=== PATIENT | male | born 1965 | race African-American/Black ===

== ENCOUNTER 2025-03-03 21:17 | Inpatient (IN) | payer MEDICAID ==
[~2025-03-03] VITALS: Ht 198.1 cm; Wt 104.0 kg
[~2025-03-03 21:17] MED LIST: APIX5TAB PO; CARV6.2551 PO; EMPA1TAB PO; FAMO20TA10 PO; IRBE150T57 PO; NIFE90TA75 PO; SPIR25TA8 PO; TORS20TA19 PO
--- NOTE | 2025-03-03 21:47 | ED.PDOC ---
Musculoskeletal HPI Comments 59 y.o male with PMHx of DM and HTN, presents to the ED for a chief complaint of bilateral leg swelling that has been ongoing. Patient reports being seen recently at a hospital in [place] in which he had a water pill switch and has been taking since. Patient is a poor historian, is unsure when he went to [place] or what water pill he is taking at this time, but that he is compliant with taking all his medication., Time Seen by MD: 21:34 Reviewed Notes: Nurses Notes, Medications, Allergies Allergies: Coded Allergies: NO KNOWN ALLERGIES (Unverified , 12/31/24) Information Source: Patient Mode of Arrival: Wheelchair Location: Bilateral Extremity Location: Leg Timing: Came on: Gradually Severity: Moderate Able to Move Extremity: Yes Bear Weight: Fully Pain: Moderate Mechanism: None Circumstances: Preceding Wound Onset of Symptoms: Spontaneous Symptoms: Swelling Associated signs and symptoms: Swelling Past Medical History PAST MEDICAL HISTORY: DM, HTN Surgical History: Denies all surgeries Family History Family History: Reviewed,noncontributory to illness, No family hx of Cancer, No family hx of DM, No family hx of Heart ameena, No family hx of HTN, No family hx ofKidney ameena, No family hx of Liver ameena, No family hx of Lung ameena, No family hx of Stroke Social History Smoker: Cigarettes Alcohol: Occasionally Drugs: Denies Drug Use Lives In: Home Constitutional: denies: chills, diaphoresis, fatigue, fever, malaise, sweats, weakness, others EENTM: denies: blurred vision, double vision, ear bleeding, ear discharge, ear drainage, ear pain, ear ringing, eye pain, eye redness, hearing loss, mouth pain, mouth swelling, nasal discharge, nose bleeding, nose congestion, nose pain, photophobia, tearing, throat pain, throat swelling, voice changes, others Respiratory: denies: cough, hemoptysis, orthopnea, SOB at rest, shortness of breath, SOB with excertion, stridor, wheezing, others Cardiovascular: denies: chest pain, dizzy spells, diaphoresis, Dyspnea on exertion, edema, irregular heart beat, left arm pain, lightheadedness, palpitations, PND, syncope, others Gastrointestinal: denies: abdomen distended, abdominal pain, blood streaked bowels, constipated, diarrhea, dysphagia, difficulty swallowing, hematemesis, melena, nausea, poor appetite, poor fluid intake, rectal bleeding, rectal pain, vomiting, others Genitourinary: denies: burning, dysuria, flank pain, frequency, hematuria, incontinence, penile discharge, penile sore, pain, testicle pain, testicle swelling, urgency, others Neurological: denies: dizziness, fainting, headache, left sided numbness, left sided weakness, numbness, paresthesia, pre-existing deficit, right sided numbness, right sided weakness, seizure, speech problems, tingling, tremors, weakness, others Musculoskeletal: reports: others (Lower extremity swelling ); denies: back pain, gout, joint pain, joint swelling, muscle pain, muscle stiffness, neck pain Integumetry: denies: bruises, change in color, change in hair/nails, dryness, laceration, lesions, lumps, rash, wounds, others Allergic/Immunocompromised: denies: Difficulty Healing, Frequent Infections, Hives, Itching, others Hematologic/Lymphatic: denies: anemia, blood clots, easy bleeding, easy bruising, swollen glands, others Endocrine: denies: excessive hunger, excessive sweating, excessive thirst, excessive urination, flushing, intolerance to cold, intolerance to heat, unexplained weight gain, unexplained weight loss, others Psychiatric: denies: anxiety, bipolar disorder, depression, hopeless, panic disorder, schizophrenia, sleepless, suicidal, others All Other Systems: Reviewed and Negative Physical Exam General Appearance: No Apparent Distress, Normal HEENT: Normal ENT Inspection, Pharynx Normal, TMs Normal Neck: Full Range of Motion, Non-Tender, Normal, Normal Inspection Respiratory: Chest Non-Tender, Lungs Clear, No Accessory Muscle Use, No Respiratory Distress, Normal Breath Sounds Cardiovascular: No Edema, No JVD, No Murmur, No Gallop, Normal Peripheral Pulses, Regular Rate/Rhythm Breast Exam: Deferred Gastrointestinal: No Organomegaly, Non Tender, No Pulsatile Mass, Normal Bowel Sounds, Soft Genitalia: Deferred Pelvic: Deferred Rectal: Deferred Extremities: Pedal edema, Swelling (Bilateral lower extremity ) Musculoskeletal : Apperance: Normal Neurologic: Alert, communications editor II-XII nml as Tested, No Motor Deficits, Normal Affect, Normal Mood, No Sensory Deficits Cerebellar Function: Normal Reflexes: Normal Skin: Dry, Normal Color, Warm Lymphatic: No Adenopathy Was a procedure done? Was a procedure done?: No Differential Diagnosis EXT Differential Diagnosis: Cellulitis, Deep Vein Thrombosis, Gout X-Ray, Labs, Meds, VS Vital Signs Date Time Temp Pulse Resp B/P (MAP) Pulse Ox O2 Delivery O2 Flow Rate FiO2 03/03/25 22:17 98.0 110 18 125/80 (95) 100 98.0 Lab Test 03/03/25 22:58 03/03/25 21:47 Range/Units Troponin I High Sensitivity Pending 54 </=54 ng/L White Blood Count 6.3 4.4-10.8 10^3/uL Red Blood Count 4.83 4.5-5.90 10^6/uL Hemoglobin 12.8 L 13.5-17.5 g/dL Hematocrit 40.3 L 41.0-53.0 % Mean Corpuscular Volume 83.4 80.0-100.0 fL Mean Corpuscular Hemoglobin 26.5 L 28.0-32.0 pg Mean Corpuscular Hemoglobin Concent 31.7 L 32.0-36.0 g/dL Red Cell Distribution Width 17.7 H 11.8-14.3 % Platelet Count 187 140-450 10^3/uL Mean Platelet Volume 8.7 6.9-10.8 fL Neutrophils (%) (Auto) 67.9 37.0-80.0 % Lymphocytes (%) (Auto) 20.0 10.0-50.0 % Monocytes (%) (Auto) 10.7 0.0-12.0 % Eosinophils (%) (Auto) 0.9 0.0-7.0 % Basophils (%) (Auto) 0.5 0.0-2.0 % Neutrophils # (Auto) 4.3 1.6-8.6 10 ^3/uL Lymphocytes # (Auto) 1.3 0.4-5.4 10 ^3/uL Monocytes # (Auto) 0.7 0-1.3 10 ^3/uL Eosinophils # (Auto) 0.1 0-0.8 10 ^3/uL Basophils # (Auto) 0 0-0.2 10 ^3/uL Nucleated Red Blood Cells 0.4 % Sodium Level 147 H 136-145 mmol/L Potassium Level 4.7 3.5-5.1 mmol/L Chloride Level 111 H 98-107 mmol/L Carbon Dioxide Level 26 20-31 mmol/L Anion Gap 10 5-15 Blood Urea Nitrogen 30 H 9-23 mg/dL Creatinine 1.86 H 0.700-1.30 mg/dL Glomerular Filtration Rate Calc 41 >90 mL/min BUN/Creatinine Ratio 16.1 10.0-20.0 Serum Glucose 164 H 74-106 mg/dL Calcium Level 9.2 8.7-10.4 mg/dL B-Type Natriuretic Peptide Pending Time of 1ST Reevaluation: 21:43 Reevaluation 1ST: Unchanged Patient Education/Counseling: Diagnosis, Treatment, Prognosis Family Education/Counseling: No Family Present Departure 1 Departure Time of Disposition: 23:33 (Patient likely with worsening chf exacerbation. x- ray is also concerning for possible pneumonia. will treat with antibiotics. Since patient appears clinically overloaded will not give fluids. ) Impression: Primary Impression: Acute on chronic diastolic heart failure Additional Impressions: Shortness of breath RLL pneumonia Qualified Codes: J18.9 - Pneumonia, unspecified organism Disposition: ADMITTED INPATIENT Admit to: Med Surg Condition: Serious Critical Care Note Critical Care Time?: No Stability Stability form required: No I personally scribed for ALEXANDER BHANDARI MD ([email or web address]) on 03/03/25 at 21:47. Electronically submitted by Tali Amezcua ([facility]). ALEXANDER BHANDARI MD Mar 03, 2025 21:47
[2025-03-03 22:23] LABS: Hemoglobin 12.8 g/dL (13.5-17.5); Mean Corpuscular Volume 83.4 fL (80.0-100.0)
[2025-03-03 22:26] LABS: Hematocrit 40.3 % (41.0-53.0); Mean Corpuscular Hemoglobin 26.5 pg (28.0-32.0); Nucleated Red Blood Cells % 0.4 %
[2025-03-03 22:36] LABS: Potassium 4.7 mmol/L (3.5-5.1)
[2025-03-03 22:37] LABS: Chloride 111 mmol/L (98-107); Sodium 147 mmol/L (136-145)
[2025-03-03 22:38] LABS: Calcium 9.2 mg/dL (8.7-10.4)
[2025-03-03 22:42] LABS: BUN/Creatinine Ratio 16.1 (10.0-20.0)
[2025-03-03 22:46] LABS: Blood Urea Nitrogen 30 mg/dL (9-23); Glucose 164 mg/dL (74-106)
[2025-03-03 22:49] LABS: Anion Gap 10 (5-15); Carbon Dioxide 26 mmol/L (20-31)
--- NOTE | 2025-03-03 23:15 | DVH ---
CHEST RADIOGRAPH Indication: chest pain Technique: Single frontal view of the chest was obtained COMPARISON: XY CHEST PORTABLE on DOS: 12/31/24 FINDINGS: Lines and Tubes: None Lungs: Multifocal bilateral pulmonary airspace disease predominantly within the middle and lower lung zones, [id number]. Consolidative features within the right middle and lower lung zone. Pleura: No effusion. No pneumothorax. Cardiomediastinal contours: Unremarkable Bones: Unremarkable IMPRESSION: 1. Multifocal bilateral pulmonary airspace disease with consolidative features within the right middl e and lower lung zone.
[2025-03-04] MEDS ORDERED: MORPHINE SULFATE INJ 2 MG/ml SYRG IV PRN
[2025-03-04] MEDS ORDERED: NITROGLYCERIN 0.4 MG SL TAB SL PRN
--- NOTE | 2025-03-04 00:55 | DVHHP2 ---
History of Present Illness Reason for Visit: Shortness of breaths History of Present Illness 59-year-old male presents for evaluation of shortness for breath. Patient reports worsening shortness for breath with associated lower extremity swelling. He also reports substernal chest tightness. No fever or chills. No other acut e complaints. Past Medical History Congestive heart failure, hypertension, diabetes mellitus Past Surgical History Denies Family History Noncontributory Smoke: No ALCOHOL: none Drugs: None Lives: with Family Review of Systems Review of Systems Review of systems are currently negative otherwise addressed in HPI. Allergies: Coded Allergies: NO KNOWN ALLERGIES (Unverified , 12/31/24) Medications Current Medications Medications Dose Ordered Sig/Aayush Route Start Time Stop Time Status Last Admin Dose Admin Nitroglycerin 0.4 mg Q5MINP PRN SL 03/04/25 00:00 Morphine Sulfate 2 mg Q30M PRN IV 03/04/25 00:00 Exam Vital Signs Vital Signs Date Time Temp Pulse Resp B/P (MAP) Pulse Ox O2 Delivery O2 Flow Rate FiO2 03/03/25 22:17 98.0 110 18 125/80 (95) 100 98.0 Exam Gen: 59-year-old male in mild distress Skin: Warm, dry, normal color and texture, no rash. HEENT: Normocephalic atraumatic, mucous membranes moist and pink. Neck: Cervical and supraclavicular nodes normal without enlargement, trachea is midline, thyroid gland is normal without masses. Pulmonary: Clear to auscultation and percussion bilaterally. Cardiac: Regular rate and rhythm. No murmur Abdomen: Soft, nontender, nondistended, bowel sounds present all 4 quadrants, no guarding, no rigidity, no organomegaly. Extremities: No cyanosis, clubbing, plus two bilateral pedal edema Neuro: Cranial nerves II through XII grossly intact, normal affect and speech, no focal motor deficits. Labs/Xrays ORDERING PHYSICIAN: ALEXANDER BHANDARI MD PROCEDURE(s): CXRP - CHEST PORTABLE REASON: chest pain ORDER NUMBER(s): [id number], ACCESSION NUMBER(s): [id number] CHEST RADIOGRAPH Indication: chest pain Technique: Single frontal view of the chest was obtained COMPARISON: XY CHEST PORTABLE on DOS: 12/31/24 FINDINGS: Lines and Tubes: None Lungs: Multifocal bilateral pulmonary airspace disease predominantly within the middle and lower lung zones, [id number]-left. Consolidative features within the right middle and lower lung zone. Pleura: No effusion. No pneumothorax. Cardiomediastinal contours: Unremarkable Bones: Unremarkable IMPRESSION: 1. Multifocal bilateral pulmonary airspace disease with consolidative features within the right middle and lower lung zone. Labs Test 03/03/25 22:58 03/03/25 21:47 Range/Units Troponin I High Sensitivity 59 *H </=54 ng/L White Blood Count 6.3 4.4-10.8 10^3/uL Red Blood Count 4.83 4.5-5.90 10^6/uL Hemoglobin 12.8 L 13.5-17.5 g/dL Hematocrit 40.3 L 41.0-53.0 % Mean Corpuscular Volume 83.4 80.0-100.0 fL Mean Corpuscular Hemoglobin 26.5 L 28.0-32.0 pg Mean Corpuscular Hemoglobin Concent 31.7 L 32.0-36.0 g/dL Red Cell Distribution Width 17.7 H 11.8-14.3 % Platelet Count 187 140-450 10^3/uL Mean Platelet Volume 8.7 6.9-10.8 fL Neutrophils (%) (Auto) 67.9 37.0-80.0 % Lymphocytes (%) (Auto) 20.0 10.0-50.0 % Monocytes (%) (Auto) 10.7 0.0-12.0 % Eosinophils (%) (Auto) 0.9 0.0-7.0 % Basophils (%) (Auto) 0.5 0.0-2.0 % Neutrophils # (Auto) 4.3 1.6-8.6 10 ^3/uL Lymphocytes # (Auto) 1.3 0.4-5.4 10 ^3/uL Monocytes # (Auto) 0.7 0-1.3 10 ^3/uL Eosinophils # (Auto) 0.1 0-0.8 10 ^3/uL Basophils # (Auto) 0 0-0.2 10 ^3/uL Nucleated Red Blood Cells 0.4 % Sodium Level 147 H 136-145 mmol/L Potassium Level 4.7 3.5-5.1 mmol/L Chloride Level 111 H 98-107 mmol/L Carbon Dioxide Level 26 20-31 mmol/L Anion Gap 10 5-15 Blood Urea Nitrogen 30 H 9-23 mg/dL Creatinine 1.86 H 0.700-1.30 mg/dL Glomerular Filtration Rate Calc 41 >90 mL/min BUN/Creatinine Ratio 16.1 10.0-20.0 Serum Glucose 164 H 74-106 mg/dL Calcium Level 9.2 8.7-10.4 mg/dL B-Type Natriuretic Peptide > 5000.00 0-100 pg/mL Assessment/Plan Assessment/Plan Assessment Acute on chronic respiratory failure CHF exacerbation Community-acquired pneumonia Troponin elevation Acute kidney injury Plan Admit the patient to telemetry to the hospitalist Cardiology consult Resume home medications IV Lasix Azithromycin/Rocephin Continue treatment per orders. Plan discussed with: Patient My Orders Orders - DONAVAN RODRÍGUEZ Procedure Category Date Status Time Admit ADMIT 03/03/25 Transmitted 23:55 Nitroglycerin PHA 03/04/25 In Process Sublingual (Ntrostat 00:00 Morphine Sulfate PHA 03/04/25 In Process Injection 00:00 Stat Ekg For Chest SHANNAN 03/03/25 In Process Pain 23:55 Notify Md Of Changes SHANNAN 03/03/25 In Process From Base 23:55 Magneto Specialist For SHANNAN 03/03/25 In Process 24 Hours 23:55 Emergency Dysrhythmia SHANNAN 03/03/25 In Process Protocol 23:55 Rhythm Strips Once SHANNAN 03/03/25 In Process Every Shift 23:55 Oxygen By Nasal RT 03/03/25 Transmitted Cannula 23:55 Date of Service: Mar 03, 2025 Billing Provider: DONAVAN RODRÍGUEZ Common Visit Codes: [id number] INP/OBS CARE (HIGH) DONAVAN RODRÍGUEZ Mar 04, 2025 00:55
[2025-03-04] MEDS ORDERED: ACETAMINOPHEN 325 MG TAB PO PRN (01:00)
[2025-03-04] MEDS ORDERED: HYDROcodone-ACET 5/325MG TAB PO PRN (01:00)
[2025-03-04] MEDS ORDERED: ONDANSETRON HCL 4 MG/2 ML VIAL IV PRN (01:00)
[2025-03-04 02:36] LABS: Urine Protein, UAD 1+ (Negative)
[2025-03-04 03:52] VITALS: O2SAT 94
[2025-03-04] MEDS: AZITHROMYCIN 250 MG TAB PO ONE (04:03)
[2025-03-04] MEDS: FUROSEMIDE 40 MG/4 ML VIAL IV ONE (04:03)
[2025-03-04] MEDS: CEFEPIME 2GM/50ML NS 50 ML IV ONE (04:04)
[2025-03-04] MEDS: FUROSEMIDE 20 MG/2 ML VIAL IV SCH (06:21)
[2025-03-04 08:00] VITALS: TEMP 97.4
[2025-03-04 08:15] VITALS: PULSE 104; RESP 22; O2SAT 97
[2025-03-04] MEDS: cefTRIAXone 1GM/50ML D5W 50 ML IV SCH (09:07)
[2025-03-04] MEDS ORDERED: IRBESARTAN 300 MG PO SCH (10:00)
[2025-03-04] MEDS ORDERED: APIXABAN 5 MG TAB PO SCH (10:00)
[2025-03-04] MEDS ORDERED: LOSARTAN POTASSIUM 50 MG TAB PO SCH (10:00)
[2025-03-04] MEDS ORDERED: hydroCHLOROthiazide 25 MG TAB PO SCH (10:00)
--- NOTE | 2025-03-04 10:06 | DVHINCON2 ---
Date Seen: Mar 04, 2025 Referring Physician KEKE Coreas Reason for Consultation CHF History of Present Illness This is a 59-year-old man who presented to the emergency room with a chief complaint of shortness of breath. The patient complains of progressive, intermittent shortness of breath associated with orthopnea. Denies chest pain, palpitations, diaphoresis, dizziness, syncopal events, PND or LOPEZ. He underwent a 12 lead electrocardiogram revealing a sinus rhythm with an incomplete RBBB, nonspecific ST segment changes to lateral leads, LVH and LAE. Troponin levels are flat in the 50s ng/L. Of note, the patient had an admission to this facility on 12/31/2024 but left AMA. 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 At that time, he underwent a cardiac catheterization without catheter based intervention. He was discharged on full GDMT for HFrEF in addition to Eliquis therapy for an unknown diagnosis. He lives in the [facility] and has established care with a primary quality assurance associate in [place] with upcoming appointment on 03/14/2025. Significant medical history includes nonischemic/biventricular cardiomyopathy, hypertension, prediabetes, benign prostatic hyperplasia, bilateral adrenal nodules, and morbid obesity. Past Medical History Past medical history reviewed. No other significant than mentioned above. Past Surgical History Past medical history reviewed. No other significant than mentioned above. Family History Family history reviewed. Significant for father with CABG. Social History Denies the use of illicit drugs and alcohol. Admits to tobacco use, one pack of cigarettes every five days. 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 Allergies: Coded Allergies: NO KNOWN ALLERGIES (Unverified , 12/31/24) Home Meds Home medications reviewed. Current Medications Current Medications Medications (Trade) Dose Ordered Sig/Aayush Route PRN Reason Start Time Stop Time Status Last Admin Nitroglycerin (Ntrostat Sublingual) 0.4 mg Q5MINP PRN SL FOR CHEST PAIN 03/04/25 00:00 Morphine Sulfate 2 mg Q30M PRN IV FOR CHEST PAIN 03/04/25 00:00 Furosemide (Lasix Injection) 20 mg BIDD IV 03/04/25 06:00 03/04/25 06:21 Apixaban (Eliquis) 5 mg BID PO 03/04/25 10:00 Empaglifozin (Jardiance) 10 mg DAILY PO 03/04/25 10:00 Carvedilol (Coreg Tablet) 6.25 mg Q12HR PO 03/04/25 10:00 Hydrochlorothiazide (hydroCHLOROthiazide TABLET) 12.5 mg DAILY PO 03/04/25 10:00 Patient Own Medication 300 mg DAILY PO 03/04/25 10:00 UNV Aspirin 81 mg DAILY PO 03/04/25 10:00 Atorvastatin Calcium (Lipitor) 10 mg HS PO 03/04/25 22:00 Acetaminophen/ Hydrocodone Bitart ([place] 5/325MG Tab) 1 tab Q4HP PRN PO MODERATE PAIN (4-6 PAIN SCALE) 03/04/25 01:00 Ondansetron HCl (Zofran) 4 mg Q4HP PRN IV NAUSEA / VOMITING 03/04/25 01:00 Acetaminophen (Tylenol Tablet) 650 mg Q6HP PRN PO PAIN SCALE 1-3 OR TEMP>100.4 03/04/25 01:00 Azithromycin 250 ml @ 125 mls/hr DAILY IV 03/04/25 10:00 UNV Ceftriaxone Sodium 50 ml @ 100 mls/hr DAILY@09 IV 03/04/25 09:00 03/04/25 09:07 Losartan Potassium (Cozaar Tablet) 100 mg DAILY PO 03/04/25 10:00 Review of Systems Constitutional: No symptom reported Ears, Nose, & Throat: No symptom reported Eyes: No symptom reported Neurological: No symptoms reported Pulmonary/Respiratory: SOB, orthopnea Cardiovascular: No symptom reported Gastrointestinal: No symptom reported Genitourinary: No symptom reported Musculoskeletal: No symptom reported Skin: No symptom reported Psychiatric: No symptom reported Endocrine: No symptom reported Hemotologic/Lymphatic: No symptom reported Vital Signs Vital Signs Date Time Temp Pulse Resp B/P (MAP) Pulse Ox O2 Delivery O2 Flow Rate FiO2 03/04/25 08:50 96 03/04/25 08:15 22 97 Room Air* 0 21 03/04/25 08:00 97.4 122/94 (103) 97.4 Labs/Diagnostic Data Labs Test 03/04/25 08:20 03/03/25 22:58 03/03/25 21:47 03/03/25 21:42 Range/Units Lactic Acid Level 1.8 0.4-2.0 mmol/L Troponin I High Sensitivity 59 *H </=54 ng/L White Blood Count 6.3 4.4-10.8 10^3/uL Red Blood Count 4.83 4.5-5.90 10^6/uL Hemoglobin 12.8 L 13.5-17.5 g/dL Hematocrit 40.3 L 41.0-53.0 % Mean Corpuscular Volume 83.4 80.0-100.0 fL Mean Corpuscular Hemoglobin 26.5 L 28.0-32.0 pg Mean Corpuscular Hemoglobin Concent 31.7 L 32.0-36.0 g/dL Red Cell Distribution Width 17.7 H 11.8-14.3 % Platelet Count 187 140-450 10^3/uL Mean Platelet Volume 8.7 6.9-10.8 fL Neutrophils (%) (Auto) 67.9 37.0-80.0 % Lymphocytes (%) (Auto) 20.0 10.0-50.0 % Monocytes (%) (Auto) 10.7 0.0-12.0 % Eosinophils (%) (Auto) 0.9 0.0-7.0 % Basophils (%) (Auto) 0.5 0.0-2.0 % Neutrophils # (Auto) 4.3 1.6-8.6 10 ^3/uL Lymphocytes # (Auto) 1.3 0.4-5.4 10 ^3/uL Monocytes # (Auto) 0.7 0-1.3 10 ^3/uL Eosinophils # (Auto) 0.1 0-0.8 10 ^3/uL Basophils # (Auto) 0 0-0.2 10 ^3/uL Nucleated Red Blood Cells 0.4 % Sodium Level 147 H 136-145 mmol/L Potassium Level 4.7 3.5-5.1 mmol/L Chloride Level 111 H 98-107 mmol/L Carbon Dioxide Level 26 20-31 mmol/L Anion Gap 10 5-15 Blood Urea Nitrogen 30 H 9-23 mg/dL Creatinine 1.86 H 0.700-1.30 mg/dL Glomerular Filtration Rate Calc 41 >90 mL/min BUN/Creatinine Ratio 16.1 10.0-20.0 Serum Glucose 164 H 74-106 mg/dL Calcium Level 9.2 8.7-10.4 mg/dL B-Type Natriuretic Peptide > 5000.00 0-100 pg/mL Urine Color Yellow Yellow Urine Clarity Clear Clear Urine pH 6.5 5.0-9.0 Urine Specific [place] 1.018 1.001-1.035 Urine Protein 1+ H Negative Urine Ketones Negative Negative Urine Blood Negative Negative /uL Urine Nitrite Negative Negative Urine Bilirubin Negative Negative Urine Urobilinogen Normal Negative mg/dL Urine Leukocyte Esterase Negative Negative /uL Urine RBC 3 0 - 3 /hpf Urine Microscopic WBC 1 0-3 /HPF Urine Squamous Epithelial Cells None seen <5 /hpf Urine Bacteria None seen None Seen /hpf Urine Glucose 3+ H Normal mg/dL Assessment Acute on chronic decompensated HFrEF, NYHA Class IV Non-ischemic/biventricular cardiomyopathy NSTEMI Type II secondary to above Pulmonary hypertension, severe, likely Group II Aortic valve insufficiency, moderate to severe 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 Gibson): * Transthoracic echocardiogram from 01/02/2025 revealed LVEF 10-15%. RVSP 60 mmHg * Severe global hypokinesis. Right ventricular function is diminished at about 40%. Moderate to severe aortic insufficiency * GDMT for HFrEF as renal function permits * Currently on BB and SGLT2i. Mineralcorticoid and Entresto held 2/2 EDVIN * Preload and afterload reduction. Aggressive diuresis * Strict I&Os, daily weight, maintain fluid restrictions * Therapeutic Lovenox. Resume DOAC therapy with Eliquis when appropriate * Monitor ECG changes closely and notify Consider oncology consultation given suspected pulmonary/pancreatic malignancy. Thank you for allowing us to participate in this patient's care. Please call if you have any questions or concerns. This medical document was created using an electronic medical record system with voice recognition software and computerized dictation system. Although this document has been carefully reviewed, there might still be some phonetic and typographical errors. Occasional wrong-word or ``sound-alike substitutions may have occurred due to the inherent limitations of voice recognition software. These areas are purely typographical due to imperfections of the software programs and do not reflect any compromise in the patient's medical care. Please read the chart carefully and recognize, using context, where these substitutions have occurred. Plan discussed with: Patient, Other NYHA Physical activity limitations: Class4(Severe)discomfort (w any activit,symptoms at rest) Date of Service: Mar 04, 2025 Billing Provider: JODI NASH Cardiology Common Codes: [id number] INP/OBS CARE (High) JODI NASH Mar 04, 2025 10:05
[2025-03-04] MEDS: AZITHROMYCIN 500MG/ 250ML 250 ML IV SCH (10:58)
[2025-03-04 11:00] VITALS: BP 141/93; PULSE 96; RESP 18; O2SAT 94
[2025-03-04] MEDS: ENOXAPARIN SOD 100 MG/1 ML SYRINGE SC SCH (11:01)
[2025-03-04] MEDS: EMPAGLIFLOZIN 10 MG TAB PO SCH (11:01)
[2025-03-04] MEDS: CARVEDILOL 3.125 MG TAB PO SCH (11:04)
[2025-03-04] MEDS ORDERED: ALBUTEROL SULF 2.5 MG/0.5ML(0.5%) NEB SOLN NEB PRN (12:00)
[2025-03-04] MEDS ORDERED: IPRATROPIUM BROM 0.5 MG/2.5ML INH SOL NEB PRN (12:00)
[2025-03-04] MEDS ORDERED: DOXYCYCLINE 100MG/100ML 100 ML IV SCH (12:00)
--- NOTE | 2025-03-04 12:09 | DVHDS2 ---
Discharge Summary Date of Admission Mar 03, 2025 at 23:55 Date of Discharge: Mar 04, 2025 Admitting Diagnosis Acute on chronic respiratory failure CHF exacerbation Community-acquired pneumonia Troponin elevation Acute kidney injury Labs/Diagnostic Data: Laboratory Results Test 03/04/25 08:20 03/03/25 22:58 03/03/25 21:47 03/03/25 21:42 Lactic Acid Level 1.8 mmol/L (0.4-2.0) Troponin I High Sensitivity 59 ng/L (</=54) White Blood Count 6.3 10^3/uL (4.4-10.8) Red Blood Count 4.83 10^6/uL (4.5-5.90) Hemoglobin 12.8 g/dL (13.5-17.5) Hematocrit 40.3 % (41.0-53.0) Mean Corpuscular Volume 83.4 fL (80.0-100.0) Mean Corpuscular Hemoglobin 26.5 pg (28.0-32.0) Mean Corpuscular Hemoglobin Concent 31.7 g/dL (32.0-36.0) Red Cell Distribution Width 17.7 % (11.8-14.3) Platelet Count 187 10^3/uL (140-450) Mean Platelet Volume 8.7 fL (6.9-10.8) Neutrophils (%) (Auto) 67.9 % (37.0-80.0) Lymphocytes (%) (Auto) 20.0 % (10.0-50.0) Monocytes (%) (Auto) 10.7 % (0.0-12.0) Eosinophils (%) (Auto) 0.9 % (0.0-7.0) Basophils (%) (Auto) 0.5 % (0.0-2.0) Neutrophils # (Auto) 4.3 10 ^3/uL (1.6-8.6) Lymphocytes # (Auto) 1.3 10 ^3/uL (0.4-5.4) Monocytes # (Auto) 0.7 10 ^3/uL (0-1.3) Eosinophils # (Auto) 0.1 10 ^3/uL (0-0.8) Basophils # (Auto) 0 10 ^3/uL (0-0.2) Nucleated Red Blood Cells 0.4 % Sodium Level 147 mmol/L (136-145) Potassium Level 4.7 mmol/L (3.5-5.1) Chloride Level 111 mmol/L (98-107) Carbon Dioxide Level 26 mmol/L (20-31) Anion Gap 10 (5-15) Blood Urea Nitrogen 30 mg/dL (9-23) Creatinine 1.86 mg/dL (0.700-1.30) Glomerular Filtration Rate Calc 41 mL/min (>90) BUN/Creatinine Ratio 16.1 (10.0-20.0) Serum Glucose 164 mg/dL (74-106) Calcium Level 9.2 mg/dL (8.7-10.4) B-Type Natriuretic Peptide > 5000.00 pg/mL (0-100) Urine Color Yellow (Yellow) Urine Clarity Clear (Clear) Urine pH 6.5 (5.0-9.0) Urine Specific [place] 1.018 (1.001-1.035) Urine Protein 1+ (Negative) Urine Ketones Negative (Negative) Urine Blood Negative /uL (Negative) Urine Nitrite Negative (Negative) Urine Bilirubin Negative (Negative) Urine Urobilinogen Normal mg/dL (Negative) Urine Leukocyte Esterase Negative /uL (Negative) Urine RBC 3 /hpf (0 - 3) Urine Microscopic WBC 1 /HPF (0-3) Urine Squamous Epithelial Cells None seen /hpf (<5) Urine Bacteria None seen /hpf (None Seen) Urine Glucose 3+ mg/dL (Normal) Other Laboratory Tests 03/03/25 21:47 Brief Hx & Hospital Course: This is a 59 years old male with past medical history of congestive heart failure, COPD, came to emergency department because worsening shortness for breath. The patient also complained of bilateral lower extremity edema. Denied any fever, chills. The patient was admitted for congestive heart failure exacerbation and also was treated for COPD exacerbation with oxygen, DuoNeb, and antibiotics. Patient also was put on Lasix IV b.i.d.. Today I see the patient he still sitting on bed tried to catch the breath however he adamant that he will leave the hospital. He said he can not stay any day. I explained to him if he leave the hospital prematurely he might have to come back because of his respiratory failure and if he not treating the congestive heart failure and COPD appropriate he might suffer from mom multiple comorbid even . Patient however adamant that he will leave against medical advice. Physical exam prior to patient left against medical advice HEENT: Normocephalic atraumatic pupils equal react to light and accommodation. Extraocular muscles intact, conjunctiva pink, oropharynx moist, no thrush, no exudate. Lymphatic: No lymphadenopathy Cardiovascular exam: S1, S2 was heard. No murmurs, rubs, gallops Lung: Decreased breath sounds bilateral, wheezing over the lung field, positive rhonchi and rales. GI: Abdominal soft, nondistended, nontenderness, positive bowel sounds. Extremity: No crepitus, cyanosis, edema. Pedal pulses present bilateral. Full range of motion. Skin: Normal turgor, no rash. Psych: Alert, oriented x3. Neurology: No focal deficits, cranial nerve II to XII grossly intact. This medical document was created using an electronic medical record system with eyetok dictation system. Although this document has been carefully reviewed, there may still be some phonetic and typographical errors. These areas are purely typographical due to imperfections of the software programs, and do not reflect any compromise in the patient's medical care. Condition at Discharge: Guarded Final Diagnosis/Problems List Acute on chronic respiratory failure CHF exacerbation Community-acquired pneumonia Troponin elevation Acute kidney injury Discharge Disposition: AMA Discharge Instruct/Medications Scheduled Apixaban Base (Eliquis), 1 TAB PO BID, (Reported) Carvedilol (Coreg), 12.5 MG PO Q12HR Doxycycline Monohydrate (Doxycycline Monohydrate), 100 MG PO Q12HR Empagliflozin (Jardiance), 1 TAB PO DAILY, (Reported) Famotidine (Pepcid Tablet), 1 TAB PO DAILY, (Reported) Furosemide (Furosemide), 40 MG PO BID Irbesartan-Hydrochlorothiazide (Irbesartan/Hydrochlorothi 150-12.5 mg), 1 TAB PO DAILY, (Reported) Nifedipine (Nifedipine Er), 1 TAB PO DAILY, (Reported) Spironolactone (Spironolactone), 0.5 TAB PO DAILY, (Reported) Torsemide Injection (Torsemide), 0.5 TAB PO DAILY, (Reported) Discontinued Medications Carvedilol (Carvedilol), 1 TAB PO BID, (Reported) Discharge Statement: "Patient was advised to return to the ER or call 911 if any headaches, dizziness, shortness of breath, chest pain, abdominal pain, bleeding, fevers, or worsening of medical condition. Patient was counseled about treatment plan, medications, possible side effects, patientverbalized understanding. All questions were answered to the best of my ability. This discharge took greater then 30 minutes in planning, reviewing documentation, counseling the patient, and discussing with other team members." ASSESSMENT ASSESSMENT Assessment Date of Service: Mar 04, 2025 Billing Provider: LEONIDAS WHATLEY MD Common Visit Codes: 95914-KUQ/OBS DISCH DAY >30min LEONIDAS WHATLEY MD Mar 04, 2025 12:09
--- NOTE | 2025-03-04 12:46 | ECG ---
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
[2025-03-04] MEDS ORDERED: FUROSEMIDE 40 MG/4 ML VIAL IV SCH (18:00)
[2025-03-04] MEDS ORDERED: ATORVASTATIN 20 MG TAB PO SCH (22:00)
--- NOTE | 2025-03-04 23:07 | DVHINCON2 ---
Date Seen: Mar 04, 2025 Referring Physician KEKE Coreas Reason for Consultation CHF History of Present Illness This is a 59-year-old male with a PMH of nonischemic/biventricular cardiomyopathy, hypertension, prediabetes, benign prostatic hyperplasia, bilateral adrenal nodules, and morbid obesity who presented to the emergency room with complaint of shortness of breath. The patient complains of progressive, intermittent shortness of breath associated with orthopnea. Denies chest pain, palpitations, diaphoresis, dizziness, syncopal events, PND or LOPEZ. He underwent a 12 lead electrocardiogram revealing a sinus rhythm with an incomplete RBBB, nonspecific ST segment changes to lateral leads, LVH and LAE. Troponin levels are flat in the 50s ng/L. Of note, the patient had an admission to this facility on 12/31/2024 but left AMA. 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 At that time, he underwent a cardiac catheterization without catheter based intervention. He was discharged on full GDMT for HFrEF in addition to Eliquis therapy for an unknown diagnosis. He lives in the [facility] and has established care with a primary football pad repairer in [place] with upcoming appointment on 03/14/2025. Patient was admitted to the hospital. I am asked to consult on this patient. Past Medical History Past medical history reviewed. No other significant than mentioned above. Allergies: Coded Allergies: NO KNOWN ALLERGIES (Unverified , 12/31/24) Current Medications Current Medications Medications (Trade) Dose Ordered Sig/Aayush Route PRN Reason Start Time Stop Time Status Last Admin Nitroglycerin (Ntrostat Sublingual) 0.4 mg Q5MINP PRN SL FOR CHEST PAIN 03/04/25 00:00 03/04/25 12:15 DC Morphine Sulfate 2 mg Q30M PRN IV FOR CHEST PAIN 03/04/25 00:00 03/04/25 12:15 DC Furosemide (Lasix Injection) 20 mg BIDD IV 03/04/25 06:00 03/04/25 11:59 DC 03/04/25 06:21 Apixaban (Eliquis) 5 mg BID PO 03/04/25 10:00 03/04/25 09:46 DC Empaglifozin (Jardiance) 10 mg DAILY PO 03/04/25 10:00 03/04/25 12:15 DC 03/04/25 11:01 Carvedilol (Coreg Tablet) 6.25 mg Q12HR PO 03/04/25 10:00 03/04/25 12:15 DC 03/04/25 11:04 Hydrochlorothiazide (hydroCHLOROthiazide TABLET) 12.5 mg DAILY PO 03/04/25 10:00 03/04/25 09:46 DC Patient Own Medication 300 mg DAILY PO 03/04/25 10:00 UNV Aspirin 81 mg DAILY PO 03/04/25 10:00 03/04/25 12:15 DC 03/04/25 11:01 Atorvastatin Calcium (Lipitor) 10 mg HS PO 03/04/25 22:00 03/04/25 12:15 DC Acetaminophen/ Hydrocodone Bitart (Riley 5/325MG Tab) 1 tab Q4HP PRN PO MODERATE PAIN (4-6 PAIN SCALE) 03/04/25 01:00 03/04/25 12:15 DC Ondansetron HCl (Zofran) 4 mg Q4HP PRN IV NAUSEA / VOMITING 03/04/25 01:00 03/04/25 12:15 DC Acetaminophen (Tylenol Tablet) 650 mg Q6HP PRN PO PAIN SCALE 1-3 OR TEMP>100.4 03/04/25 01:00 03/04/25 12:15 DC Azithromycin 250 ml @ 125 mls/hr DAILY IV 03/04/25 10:00 03/04/25 11:18 DC 03/04/25 10:58 Ceftriaxone Sodium 50 ml @ 100 mls/hr DAILY@09 IV 03/04/25 09:00 03/04/25 12:15 DC 03/04/25 09:07 Losartan Potassium (Cozaar Tablet) 100 mg DAILY PO 03/04/25 10:00 03/04/25 09:46 DC Enoxaparin Sodium (Lovenox) 100 mg Q12HR SC 03/04/25 10:00 03/04/25 12:15 DC 03/04/25 11:01 Furosemide (Lasix Injection) 40 mg BIDD IV 03/04/25 18:00 03/04/25 12:15 DC Ipratropium [place] (Atrovent Medneb) 0.5 mg Q6HPRN PRN NEB SHORTNESS OF BREATH 03/04/25 12:00 03/04/25 12:15 DC Albuterol (Ventolin Medneb) 2.5 mg Q6HPRN PRN NEB SHORTNESS OF BREATH 03/04/25 12:00 03/04/25 12:15 DC Doxycycline Hyclate 100 ml @ 50 mls/hr Q12H IV 03/04/25 12:00 03/04/25 12:15 DC Review of Systems Constitutional: No symptom reported Ears, Nose, & Throat: No symptom reported Eyes: No symptom reported Neurological: No symptoms reported Pulmonary/Respiratory: SOB, orthopnea Cardiovascular: No symptom reported Gastrointestinal: No symptom reported Genitourinary: No symptom reported Musculoskeletal: No symptom reported Skin: No symptom reported Psychiatric: No symptom reported Endocrine: No symptom reported Hemotologic/Lymphatic: No symptom reported Vital Signs Vital Signs Date Time Temp Pulse Resp B/P (MAP) Pulse Ox O2 Delivery O2 Flow Rate FiO2 03/04/25 11:04 94 141/93 03/04/25 11:00 18 94 03/04/25 08:15 Room Air* 0 21 03/04/25 08:00 97.4 97.4 Physical Exam CARDIOVASCULAR GENERAL: Alert and oriented x 3. No acute distress. EYES: PERRL, EOMI. Anicteric. HENT: Moist mucous membranes. LUNGS: Clear to auscultation bilaterally. Regular rate and rhythm. ABDOMEN: Soft, non-tender and non-distended. EXTREMITIES: No edema. NEUROLOGIC: No focal neurological deficits. SKIN: Warm, dry. Labs/Diagnostic Data Labs Test 03/04/25 08:20 03/03/25 22:58 03/03/25 21:47 03/03/25 21:42 Range/Units Lactic Acid Level 1.8 0.4-2.0 mmol/L Troponin I High Sensitivity 59 *H </=54 ng/L White Blood Count 6.3 4.4-10.8 10^3/uL Red Blood Count 4.83 4.5-5.90 10^6/uL Hemoglobin 12.8 L 13.5-17.5 g/dL Hematocrit 40.3 L 41.0-53.0 % Mean Corpuscular Volume 83.4 80.0-100.0 fL Mean Corpuscular Hemoglobin 26.5 L 28.0-32.0 pg Mean Corpuscular Hemoglobin Concent 31.7 L 32.0-36.0 g/dL Red Cell Distribution Width 17.7 H 11.8-14.3 % Platelet Count 187 140-450 10^3/uL Mean Platelet Volume 8.7 6.9-10.8 fL Neutrophils (%) (Auto) 67.9 37.0-80.0 % Lymphocytes (%) (Auto) 20.0 10.0-50.0 % Monocytes (%) (Auto) 10.7 0.0-12.0 % Eosinophils (%) (Auto) 0.9 0.0-7.0 % Basophils (%) (Auto) 0.5 0.0-2.0 % Neutrophils # (Auto) 4.3 1.6-8.6 10 ^3/uL Lymphocytes # (Auto) 1.3 0.4-5.4 10 ^3/uL Monocytes # (Auto) 0.7 0-1.3 10 ^3/uL Eosinophils # (Auto) 0.1 0-0.8 10 ^3/uL Basophils # (Auto) 0 0-0.2 10 ^3/uL Nucleated Red Blood Cells 0.4 % Sodium Level 147 H 136-145 mmol/L Potassium Level 4.7 3.5-5.1 mmol/L Chloride Level 111 H 98-107 mmol/L Carbon Dioxide Level 26 20-31 mmol/L Anion Gap 10 5-15 Blood Urea Nitrogen 30 H 9-23 mg/dL Creatinine 1.86 H 0.700-1.30 mg/dL Glomerular Filtration Rate Calc 41 >90 mL/min BUN/Creatinine Ratio 16.1 10.0-20.0 Serum Glucose 164 H 74-106 mg/dL Calcium Level 9.2 8.7-10.4 mg/dL B-Type Natriuretic Peptide > 5000.00 0-100 pg/mL Urine Color Yellow Yellow Urine Clarity Clear Clear Urine pH 6.5 5.0-9.0 Urine Specific [place] 1.018 1.001-1.035 Urine Protein 1+ H Negative Urine Ketones Negative Negative Urine Blood Negative Negative /uL Urine Nitrite Negative Negative Urine Bilirubin Negative Negative Urine Urobilinogen Normal Negative mg/dL Urine Leukocyte Esterase Negative Negative /uL Urine RBC 3 0 - 3 /hpf Urine Microscopic WBC 1 0-3 /HPF Urine Squamous Epithelial Cells None seen <5 /hpf Urine Bacteria None seen None Seen /hpf Urine Glucose 3+ H Normal mg/dL Assessment Acute on chronic decompensated HFrEF, NYHA Class IV. Non-ischemic/biventricular cardiomyopathy. NSTEMI Type II secondary to above. Pulmonary hypertension, severe, likely Group II. Aortic valve insufficiency, moderate to severe. 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 On Eliquis therapy for unknown diagnoses. Hypertension. EDVIN on CKD. Prediabetes, newly diagnosed. Nicotine dependence. Morbid obesity. Plan/Recommendation I agree with your ongoing assessment and care of plan. Patient has been seen by Renee Goncalves NP on my behalf. We have discussed the plan with the patient. Transthoracic echocardiogram from 01/02/2025 revealed LVEF 10-15%. RVSP 60 mmHg. Severe global hypokinesis. Right ventricular function is diminished at about 40%. Moderate to severe aortic insufficiency. GDMT for HFrEF as renal function permits. Currently on BB and SGLT2i. Mineralcorticoid and Entresto held 2/2 EDVIN. Preload and afterload reduction. Aggressive diuresis. Strict I&Os, daily weight, maintain fluid restrictions. Therapeutic Lovenox. Resume DOAC therapy with Eliquis when appropriate. Monitor ECG changes closely and notify. Consider oncology consultation given suspected pulmonary/pancreatic malignancy. Additional plan as per the hospital course. Plan discussed with: Patient NYHA Physical activity limitations: Class4(Severe)discomfort Date of Service: Mar 04, 2025 Billing Provider: MAYANK CANCINO MD Cardiology Common Codes: [id number] INP/OBS CARE (High) Cardiology Consultation Codes: [id number] CONSULT <45MIN MAYANK CANCINO MD Mar 04, 2025 23:07
== END 2025-03-04 12:13 | disposition left against medical advice (07) | DRG 469 ==
LOC: ER 21:20 → OVERFLOW 23:55 → UNDOADMIN 03-04 00:08 → OVERFLOW 03-04 00:08
PROVIDERS: ADMIT Internal Medicine; ATTEND Internal Medicine
DX: N17.9 Acute kidney failure, unspecified (principal); J96.20 Acute and chronic respiratory failure, unspecified whether with hypoxia or hypercapnia; I21.A1 Myocardial infarction type 2; I50.23 Acute on chronic systolic (congestive) heart failure; J15.69 Pneumonia due to other Gram-negative bacteria; I27.20 Pulmonary hypertension, unspecified; I42.8 Other cardiomyopathies; I13.0 Hypertensive heart and chronic kidney disease with heart failure and stage 1 through stage 4 chronic kidney disease, or unspecified chronic kidney disease; J15.9 Unspecified bacterial pneumonia; J44.1 Chronic obstructive pulmonary disease with (acute) exacerbation; J44.0 Chronic obstructive pulmonary disease with (acute) lower respiratory infection; C34.91 Malignant neoplasm of unspecified part of right bronchus or lung; Z53.29 Procedure and treatment not carried out because of patient's decision for other reasons; F17.210 Nicotine dependence, cigarettes, uncomplicated; I35.1 Nonrheumatic aortic (valve) insufficiency; E66.01 Morbid (severe) obesity due to excess calories; E11.22 Type 2 diabetes mellitus with diabetic chronic kidney disease; N18.9 Chronic kidney disease, unspecified; C34.92 Malignant neoplasm of unspecified part of left bronchus or lung; I45.10 Unspecified right bundle-branch block; N40.0 Benign prostatic hyperplasia without lower urinary tract symptoms; Z79.01 Long term (current) use of anticoagulants; Z68.26 Body mass index [BMI] 26.0-26.9, adult
CPT/HCPCS: 36415; 71045; 80048; 81001; 83605; 83880; 84484; 85025; 93005; G0378; J0692

== ENCOUNTER 2025-03-04 17:48 | Inpatient (IN) | payer MEDICAID ==
[~2025-03-04] VITALS: Ht 198.1 cm; Wt 150.2 kg
[2025-03-04 18:15] VITALS: PULSE 109; RESP 16; O2SAT 94
--- NOTE | 2025-03-04 18:46 | ED.PDOC ---
History of Present Illness HPI Comments 59 y.o male, with PMHx of DM and HTN, presents for 1x week history of bilateral leg swelling and 2x day history of bilateral. Patient is returning to the ED after leaving AMA, earlier, this morning. Denies any chest pain, palpitations, fever, chills, or further associated symptoms. Chief Complaint: Shortness of Breath Time Seen by MD: 18:10 Reviewed Notes: Nurses Notes, Makeup Editor Notes, Medications, Allergies Allergies: Coded Allergies: NO KNOWN ALLERGIES (Unverified , 12/31/24) Home Meds Active Scripts Furosemide (Furosemide) 40 Mg Tab, 40 MG PO BID for 10 Days, #20 TAB Prov:JADE REYNOLDS RESIDENT 03/07/25 Doxycycline Monohydrate (Doxycycline Monohydrate) 100 Mg Tab, 100 MG PO Q12HR for 3 Days, #6 TAB Prov:JADE REYNOLDS RESIDENT 03/07/25 Carvedilol (COREG) 12.5 Mg Tab, 12.5 MG PO Q12HR for 30 Days, #60 TAB 2 Refills Prov:JADE REYNOLDS RESIDENT 03/07/25 Reported Medications Nifedipine (Nifedipine Er) 90 Mg Tab, 1 TAB PO DAILY for 90 Days, #90 03/05/25 Irbesartan-Hydrochlorothiazide (Irbesartan/Hydrochlorothi 150-12.5 mg) 1 Tab Tab, 1 TAB PO DAILY for 90 Days, #90 [IRBESARTAN-HYDROCHLOROTHIAZIDE 300-12.5 MG] 03/05/25 Apixaban Base (ELIQUIS) 5 Mg Tab, 1 TAB PO BID for 30 Days, #60 03/05/25 Famotidine (PEPCID TABLET) 20 Mg Tb, 1 TAB PO DAILY for 30 Days, #30 03/05/25 Spironolactone (Spironolactone) 25 Mg Tab, 0.5 TAB PO DAILY for 30 Days, #15 03/05/25 Torsemide Injection (Torsemide) 20 Mg Tab, 0.5 TAB PO DAILY for 30 Days, #15 03/05/25 Empagliflozin (Jardiance) 10 Mg Tab, 1 TAB PO DAILY for 30 Days, #30 03/05/25 Discontinued Reported Medications Carvedilol (Carvedilol) 6.25 Mg Tab, 1 TAB PO BID for 30 Days, #60 03/05/25 Information Source: Patient Mode of Arrival: Wheelchair Severity: Moderate Timing: Days Duration: Since onset Prehospital treatment: None Past Medical History PAST MEDICAL HISTORY: DM, HTN Surgical History: Denies all surgeries Family History Family History: Reviewed,noncontributory to illness, No family hx of Cancer, No family hx of DM, No family hx of Heart ameena, No family hx of HTN, No family hx ofKidney ameena, No family hx of Liver ameena, No family hx of Lung ameena, No family hx of Stroke Social History Smoker: Cigarettes Alcohol: Occasionally Drugs: Denies Drug Use Lives In: Home All Other Systems: Reviewed and Negative Physical Exam General Appearance: No Apparent Distress, Normal HEENT: Normal ENT Inspection, Pharynx Normal, TMs Normal Neck: Full Range of Motion, Non-Tender, Normal, Normal Inspection Respiratory: Chest Non-Tender, Lungs Clear, No Accessory Muscle Use, No Respiratory Distress, Normal Breath Sounds Cardiovascular: No Edema, No JVD, No Murmur, No Gallop, Normal Peripheral Pulses, Regular Rate/Rhythm Breast Exam: Deferred Gastrointestinal: No Organomegaly, Non Tender, No Pulsatile Mass, Normal Bowel Sounds, Soft Genitalia: Deferred Pelvic: Deferred Rectal: Deferred Extremities: No calf tenderness, Normal capillary refill, Normal range of motion, Non-tender, Pedal edema, Swelling ((Bilateral lower extremity ) Musculoskeletal : Apperance: Normal Neurologic: Alert, nuclear power reactor operator II-XII nml as Tested, No Motor Deficits, Normal Affect, Normal Mood, No Sensory Deficits Cerebellar Function: Normal Reflexes: Normal Skin: Dry, Normal Color, Warm Lymphatic: No Adenopathy Was a procedure done? Was a procedure done?: No Differential Dx Considerations may include: PE, URI, MS, PNA, viral syndrome, Cellulitis, Deep Vein Thrombosis, Gout X-Ray, Labs, Meds, VS Vital Signs Date Time Temp Pulse Resp B/P (MAP) Pulse Ox O2 Delivery O2 Flow Rate FiO2 03/04/25 18:15 109 16 94 Nasal Cannula* 2 28 03/04/25 18:15 107 03/04/25 18:15 98.2 109 16 99/61 (74) 94 98.2 03/04/25 18:09 98.6 109 18 86/50 (62) 95 98.6 Lab Test 03/04/25 19:07 Range/Units White Blood Count 7.7 4.4-10.8 10^3/uL Red Blood Count 4.88 4.5-5.90 10^6/uL Hemoglobin 13.0 L 13.5-17.5 g/dL Hematocrit 40.8 L 41.0-53.0 % Mean Corpuscular Volume 83.5 80.0-100.0 fL Mean Corpuscular Hemoglobin 26.7 L 28.0-32.0 pg Mean Corpuscular Hemoglobin Concent 31.9 L 32.0-36.0 g/dL Red Cell Distribution Width 18.5 H 11.8-14.3 % Platelet Count 172 140-450 10^3/uL Mean Platelet Volume 8.5 6.9-10.8 fL Neutrophils (%) (Auto) 69.3 37.0-80.0 % Lymphocytes (%) (Auto) 16.5 10.0-50.0 % Monocytes (%) (Auto) 13.3 H 0.0-12.0 % Eosinophils (%) (Auto) 0.4 0.0-7.0 % Basophils (%) (Auto) 0.5 0.0-2.0 % Neutrophils # (Auto) 5.3 1.6-8.6 10 ^3/uL Lymphocytes # (Auto) 1.3 0.4-5.4 10 ^3/uL Monocytes # (Auto) 1.0 0-1.3 10 ^3/uL Eosinophils # (Auto) 0 0-0.8 10 ^3/uL Basophils # (Auto) 0 0-0.2 10 ^3/uL Nucleated Red Blood Cells 0.4 % Sodium Level 147 H 136-145 mmol/L Potassium Level 4.1 3.5-5.1 mmol/L Chloride Level 112 H 98-107 mmol/L Carbon Dioxide Level 24 20-31 mmol/L Anion Gap 11 5-15 Blood Urea Nitrogen 28 H 9-23 mg/dL Creatinine 1.84 H 0.700-1.30 mg/dL Glomerular Filtration Rate Calc 41 >90 mL/min BUN/Creatinine Ratio 15.2 10.0-20.0 Serum Glucose 130 H 74-106 mg/dL Calcium Level 9.5 8.7-10.4 mg/dL Troponin I High Sensitivity 54 </=54 ng/L B-Type Natriuretic Peptide 4670.95 0-100 pg/mL Time of 1ST Reevaluation: 18:40 Reevaluation 1ST: Unchanged Patient Education/Counseling: Diagnosis, Treatment Family Education/Counseling: No Family Present SEPSIS Sepsis Screen Date sepsis recognized/suspect: Mar 04, 2025 Time Sepsis recognized/suspect: 1755 Recent Procedure: No On Antibiotic Therapy: No Respiratory Rate >20: No Heart Rate >90: Yes Temp<36 C (96.8 F) or >38.3 C: No SBP <90 or MAP <65 mmHG: No New Acute Mental Status Change: No Is the patient on CPAP, BIPAP,: No Physician Orders Electrocardigram (03/04/25 18:18) Chest Portable (03/04/25 18:45) Vital Signs Date Time Temp Pulse Resp B/P (MAP) Pulse Ox O2 Delivery O2 Flow Rate FiO2 03/04/25 18:15 109 16 94 Nasal Cannula* 2 28 03/04/25 18:15 107 03/04/25 18:15 98.2 109 16 99/61 (74) 94 98.2 03/04/25 18:09 98.6 109 18 86/50 (62) 95 98.6 Laboratory Tests Test 03/04/25 19:07 White Blood Count 7.7 10^3/uL (4.4-10.8) Departure 1 Departure Time of Disposition: 18:51 (Patient returned to the hospitalist or leaving AMA. Patient is having acute systolic failure) Impression: Primary Impression: Acute on chronic systolic heart failure Additional Impressions: Shortness of breath Generalized weakness Disposition: ADMITTED INPATIENT Admit to: Med Surg Condition: Serious e-Prescriptions Furosemide (Furosemide) 40 Mg Tab 40 MG PO BID for 10 Days, #20 TAB Prov: JADE REYNOLDS RESIDENT 03/07/25 Doxycycline Monohydrate (Doxycycline Monohydrate) 100 Mg Tab 100 MG PO Q12HR for 3 Days, #6 TAB Prov: JADE REYNOLDS RESIDENT 03/07/25 Carvedilol (COREG) 12.5 Mg Tab 12.5 MG PO Q12HR for 30 Days, #60 TAB 2 Refills Prov: JADE REYNOLDS RESIDENT 03/07/25 Critical Care Note Critical Care Time?: Yes Critical care comment: Acute shortness of breath Authorized and Performed by: Alexander Alejandro MD Total critical care time: Approximately 37 minutes Due to a high probability of clinically significant, life threatening deterioration, the patient required my highest level of preparedness to intervene emergently and I personally spent this critical care time directly and personally managing the patient. This critical care time included obtaining a history; examining the patient; pulse oximetry; ordering and review of studies; arranging urgent treatment with development of a management plan; evaluation of patient's response to treatment; frequent reassessment; and, discussions with other providers. This critical care time was performed to assess and manage the high probability of imminent, life-threatening deterioration that could result in multi-organ failure. It was exclusive of separately billable procedures and treating other patients and teaching time. Please see my other sections and the rest of the note for further information on patient assessment and treatment. Stability Stability form required: No Heart Score Heart Score: Heart Score Response (Comments) Value History Moderate Suspicious 1 EKG Normal 0 Age 45-64 1 Risk Factors 1 or 2 risk factors 1 Troponin 1-2 x's Normal limit 1 Total 4 I personally scribed for ALEXANDER ALEJANDRO MD ([email or web address]) on 03/04/25 at 18:46. Electronically submitted by Gerber Proctor ([email or web address]). I personally scribed for ALEXANDER ALEJANDRO MD ([email or web address]) on 03/04/25 at 18:58. Electronically submitted by Gerber Proctor ([email or web address]). ALEXANDER ALEJANDRO MD Mar 04, 2025 18:46
[2025-03-04 19:16] LABS: Hematocrit 40.8 % (41.0-53.0); Mean Corpuscular Hemoglobin 26.7 pg (28.0-32.0)
[2025-03-04 19:18] LABS: Hemoglobin 13.0 g/dL (13.5-17.5); Mean Corpuscular Volume 83.5 fL (80.0-100.0); Nucleated Red Blood Cells % 0.4 %
[2025-03-04 19:27] LABS: Potassium 4.1 mmol/L (3.5-5.1)
[2025-03-04 19:28] LABS: Anion Gap 11 (5-15); Calcium 9.5 mg/dL (8.7-10.4); Carbon Dioxide 24 mmol/L (20-31)
[2025-03-04 19:30] LABS: Chloride 112 mmol/L (98-107); Sodium 147 mmol/L (136-145)
[2025-03-04] MEDS ORDERED: NITROGLYCERIN 0.4 MG SL TAB SL PRN (19:30)
[2025-03-04] MEDS ORDERED: MORPHINE SULFATE INJ 2 MG/ml SYRG IV PRN (19:30)
[2025-03-04 19:33] LABS: BUN/Creatinine Ratio 15.2 (10.0-20.0)
[2025-03-04 19:34] LABS: Blood Urea Nitrogen 28 mg/dL (9-23); Glucose 130 mg/dL (74-106)
[2025-03-04] MEDS ORDERED: ACETAMINOPHEN 325 MG TAB PO PRN (19:45)
[2025-03-04] MEDS ORDERED: ONDANSETRON HCL 4 MG/2 ML VIAL IV PRN (19:45)
[2025-03-04] MEDS ORDERED: ALBUTEROL SULF 2.5 MG/0.5ML(0.5%) NEB SOLN NEB PRN (19:45)
[2025-03-04 19:47] VITALS: BP 99/61; PULSE 107; RESP 16; TEMP 98.2; O2SAT 94
--- NOTE | 2025-03-04 20:28 | DVH ---
EXAM: XY CHEST PORTABLE CLINICAL HISTORY: sob TECHNIQUE: Single AP view of the chest WID: COMPARISON: XY CHEST PORTABLE on DOS: 03/03/25, FINDINGS: Lines and tubes: None Chest: Cardiomegaly without pulmonary vascular congestion. Patchy mixed airspace opacities in the lungs greatest in the right mid lung. No pleural effusion or p neumothorax. Redemonstration of masslike prominence of the left suprahilar region. The osseous structures are grossly intact. IMPRESSION: 1. Persistent patchy mixed airspace opacities bilaterally greatest in the right mid lung which could reflect multifocal pneumonia. 2. Unchanged masslike prominence of the left suprahilar region. 3. Mild cardiomegaly.
[2025-03-04] MEDS: CARVEDILOL 3.125 MG TAB PO SCH (22:00)
[2025-03-04 22:07] VITALS: PULSE 101; RESP 18; O2SAT 96
--- NOTE | 2025-03-04 22:08 | DVHHP2 ---
History of Present Illness Reason for Visit: Shortness for breath History of Present Illness 59-year-old male presents for evaluation of shortness for breath. Patient was admitted last night for CHF exacerbation. Today he left against medical advice. Now he returns with worsening shortness for breath and lower extremity swel ling. Denies fever or chills. Past Medical History Diabetes mellitus, hypertension, congestive heart failure Past Surgical History Denies Family History Noncontributory Smoke: <1 pack per day ALCOHOL: occassional Drugs: None Lives: with Family Review of Systems Review of Systems Review of systems are currently negative otherwise addressed in HPI. Allergies: Coded Allergies: NO KNOWN ALLERGIES (Unverified , 12/31/24) Medications Current Medications Medications Dose Ordered Sig/Aayush Route Start Time Stop Time Status Last Admin Dose Admin Nitroglycerin 0.4 mg Q5MINP PRN SL 03/04/25 19:30 Morphine Sulfate 2 mg Q30M PRN IV 03/04/25 19:30 Empaglifozin 10 mg DAILY PO 03/05/25 10:00 Carvedilol 3.125 mg Q12HR PO 03/04/25 22:00 Furosemide 20 mg BIDD IV 03/05/25 06:00 Apixaban 5 mg BID PO 03/04/25 22:00 UNV Ceftriaxone Sodium 50 ml @ 100 mls/hr DAILY@09 IV 03/05/25 09:00 Azithromycin 250 ml @ 125 mls/hr DAILY IV 03/05/25 10:00 Albuterol 2.5 mg Q6HPRN PRN NEB 03/04/25 19:45 Acetaminophen/ Hydrocodone Bitart 1 tab Q4HP PRN PO 03/04/25 19:45 Ondansetron HCl 4 mg Q4HP PRN IV 03/04/25 19:45 Acetaminophen 650 mg Q6HP PRN PO 03/04/25 19:45 Exam Vital Signs Vital Signs Date Time Temp Pulse Resp B/P (MAP) Pulse Ox O2 Delivery O2 Flow Rate FiO2 03/04/25 20:00 104 03/04/25 20:00 24 100/67 (78) 98 03/04/25 19:47 98.2 2.0 28 98.2 03/04/25 18:15 Nasal Cannula* Exam Gen: 59-year-old male in mild distress Skin: Warm, dry, normal color and texture, no rash. HEENT: Normocephalic atraumatic, mucous membranes moist and pink. Neck: Cervical and supraclavicular nodes normal without enlargement, trachea is midline, thyroid gland is normal without masses. Pulmonary: Clear to auscultation and percussion bilaterally. Cardiac: Regular rate and rhythm. No murmur Abdomen: Soft, nontender, nondistended, bowel sounds present all 4 quadrants, no guarding, no rigidity, no organomegaly. Extremities: No cyanosis, clubbing, plus two bilateral lower extremity edema Neuro: Cranial nerves II through XII grossly intact, normal affect and speech, no focal motor deficits. Labs/Xrays ORDERING PHYSICIAN: MACIE DAVID PROCEDURE(s): ECIDC - ECHO 2D MODE CARDIAC DOP REASON: CHF ORDER NUMBER(s): [id number], ACCESSION NUMBER(s): [id number] APPROVED REPORT EXAM: Two-dimensional and M-mode echocardiogram with Doppler and color Doppler. Blood Pressure: 162/97 mmHg INDICATION CHF RISK FACTORS Obesity: Height: 6'6", Weight: 318 DIMENSIONS LVDd 6.2 (3.8-5.7cm) LA (2D) 4.4 (1.9-4.0cm) Aortic Root 3.6 (2.0- 3.7cm) LVDs 5.7 (2.5-4.0cm) LA (MM) (1.9-4.0cm) Aortic Cusp Exc 1.9 (1.5- 2.0cm) EF (%) 16.0 (55-70%) Rt. Atrium 4.8 (1.9-4.0cm) Asc. Aorta cm IVSd 1.3 (0.7-1.1cm) RV (D) 4.4 (1.8-2.4cm) PWd 1.3 (0.7-1.1cm) Mitral Valve Mitral Mitral Stenosis E wave 1.16m/s MV Mean GR. mmHg A wave 0.60m/s MV Peak GR. mmHg E/A ratio 1.9 2D MVA cm2 DECEL Time 93ms PRESS 1/2 Time ms Aortic Valve Aortic Valve Aortic Stenosis V1 1.02m/s AO Mean GR. 4mmHg V2 1.28m/s AO Peak GR. 7mmHg LVOT Diameter 2.8 (1.8-2.4cm) Doppler YUN 4.90cm2 Pulmonic Valve V2 0.72m/s Tricuspid Valve TR Velocity 3.40m/s RVSP 61mmHg Conclusion Technically good study. Sinus rhythm. Biatrial and biventricular enlargement. Aortic root enlargement. Valves are normal. Left ventricular systolic performance is markedly diminished. EF is approximately 10-15% at best with severe global hypokinesis. Right ventricular function is diminished with a right ventricular ejection fraction of about 40%. Doppler reveals severe tricuspid regurgitation. RVSP of 60 mmHg consistent with severe pulmonary hypertension. [id number] aortic insufficiency. No pericardial effusion masses or vegetations discernible. SIGNED BY: LAVERNE BOURNE Sr., MD SIGNED DATE/TIME: 01/02/25 9504 CC: ORDERING PHYSICIAN: ALEXANDER BHANDARI MD PROCEDURE(s): CXRP - CHEST PORTABLE REASON: sob ORDER NUMBER(s): [id number], ACCESSION NUMBER(s): [id number] EXAM: XY CHEST PORTABLE CLINICAL HISTORY: sob TECHNIQUE: Single AP view of the chest WID: COMPARISON: XY CHEST PORTABLE on DOS: 03/03/25, FINDINGS: Lines and tubes: None Chest: Cardiomegaly without pulmonary vascular congestion. Patchy mixed airspace opacities in the lungs greatest in the right mid lung. No pleural effusion or pneumothorax. Redemonstration of masslike prominence of the left suprahilar region. The osseous structures are grossly intact. IMPRESSION: 1. Persistent patchy mixed airspace opacities bilaterally greatest in the right mid lung which could reflect multifocal pneumonia. 2. Unchanged masslike prominence of the left suprahilar region. 3. Mild cardiomegaly. Labs Test 03/04/25 19:07 Range/Units White Blood Count 7.7 4.4-10.8 10^3/uL Red Blood Count 4.88 4.5-5.90 10^6/uL Hemoglobin 13.0 L 13.5-17.5 g/dL Hematocrit 40.8 L 41.0-53.0 % Mean Corpuscular Volume 83.5 80.0-100.0 fL Mean Corpuscular Hemoglobin 26.7 L 28.0-32.0 pg Mean Corpuscular Hemoglobin Concent 31.9 L 32.0-36.0 g/dL Red Cell Distribution Width 18.5 H 11.8-14.3 % Platelet Count 172 140-450 10^3/uL Mean Platelet Volume 8.5 6.9-10.8 fL Neutrophils (%) (Auto) 69.3 37.0-80.0 % Lymphocytes (%) (Auto) 16.5 10.0-50.0 % Monocytes (%) (Auto) 13.3 H 0.0-12.0 % Eosinophils (%) (Auto) 0.4 0.0-7.0 % Basophils (%) (Auto) 0.5 0.0-2.0 % Neutrophils # (Auto) 5.3 1.6-8.6 10 ^3/uL Lymphocytes # (Auto) 1.3 0.4-5.4 10 ^3/uL Monocytes # (Auto) 1.0 0-1.3 10 ^3/uL Eosinophils # (Auto) 0 0-0.8 10 ^3/uL Basophils # (Auto) 0 0-0.2 10 ^3/uL Nucleated Red Blood Cells 0.4 % Sodium Level 147 H 136-145 mmol/L Potassium Level 4.1 3.5-5.1 mmol/L Chloride Level 112 H 98-107 mmol/L Carbon Dioxide Level 24 20-31 mmol/L Anion Gap 11 5-15 Blood Urea Nitrogen 28 H 9-23 mg/dL Creatinine 1.84 H 0.700-1.30 mg/dL Glomerular Filtration Rate Calc 41 >90 mL/min BUN/Creatinine Ratio 15.2 10.0-20.0 Serum Glucose 130 H 74-106 mg/dL Calcium Level 9.5 8.7-10.4 mg/dL Troponin I High Sensitivity 54 </=54 ng/L B-Type Natriuretic Peptide 4670.95 0-100 pg/mL Assessment/Plan Assessment/Plan Assessment Acute on chronic congestive heart failure Community-acquired pneumonia Chronic kidney disease Hypertension Plan Admit the patient to telemetry to the hospitalist IV Lasix Rocephin/azithromycin Resume home medications Continue treatment per orders. Plan discussed with: Patient My Orders Orders - DONAVAN RODRÍGUEZ Procedure Category Date Status Time Admit ADMIT 03/04/25 Transmitted 19:25 Nitroglycerin PHA 03/04/25 In Process Sublingual (Ntrostat 19:30 Morphine Sulfate PHA 03/04/25 In Process Injection 19:30 Stat Ekg For Chest SHANNAN 03/04/25 In Process Pain 19:25 Notify Of Changes SHANNAN 03/04/25 In Process From Base 19:25 Line And Frame Poler For SHANNAN 03/04/25 In Process 24 Hours 19:25 Emergency Dysrhythmia SHANNAN 03/04/25 In Process Protocol 19:25 Rhythm Strips Once SHANNAN 03/04/25 In Process Every Shift 19:25 Oxygen By Nasal RT 03/04/25 Transmitted Cannula 19:25 Empagliflozin PHA 03/05/25 In Process (Jardiance) 10:00 Carvedilol Tablet PHA 03/04/25 In Process (Coreg Tablet) 22:00 Furosemide Injection PHA 03/05/25 In Process (Lasix Injection) 06:00 Apixaban (Eliquis) PHA 03/04/25 Logged 22:00 Ceftriaxone 1gm/50ml PHA 03/05/25 In Process D5w (Rocephin) 09:00 Azithromycin 500mg/ PHA 03/05/25 In Process 250ml (Zithromax 50 10:00 Albuterol Medneb PHA 03/04/25 In Process (Ventolin Medneb) 19:45 Renal DIET 03/05/25 Transmitted Standard(2gna,3gk,Lopho) Breakfast Hydrocodone-Acet PHA 03/04/25 In Process 5/325mg Tab (Mcallister 19:45 Ondansetron Hcl PHA 03/04/25 In Process (Zofran) 19:45 Cardiac DIET 03/05/25 Transmitted Diet-2gna,Lofat,Lochol Breakfast Condition: Fair SHANNAN 03/04/25 In Process 19:36 Acetaminophen Tablet PHA 03/04/25 In Process (Tylenol Tablet) 19:45 Bedrest With Bathroom SHANNAN 03/04/25 In Process Privileg 19:36 Basic Metabolic Panel LAB 03/05/25 Verified 04:00 Date of Service: Mar 04, 2025 Billing Provider: DONAVAN RODRÍGUEZ Common Visit Codes: [id number] INP/OBS CARE (HIGH) DONAVAN RODRÍGUEZ Mar 04, 2025 22:07
[2025-03-04] MEDS: APIXABAN 5 MG TAB PO SCH (22:29)
[2025-03-05] VITALS (7 sets, daily range): BP systolic 101–126; BP diastolic 63–95; PULSE 88–101; RESP 18–20; TEMP 97.4–98.8; O2SAT 95–99
[2025-03-05] MEDS: FUROSEMIDE 20 MG/2 ML VIAL IV SCH (06:00)
[2025-03-05 06:03] LABS: Potassium 4.4 mmol/L (3.5-5.1)
[2025-03-05 06:04] LABS: Carbon Dioxide 26 mmol/L (20-31); Chloride 110 mmol/L (98-107); Sodium 147 mmol/L (136-145)
[2025-03-05 06:09] LABS: BUN/Creatinine Ratio 16.8 (10.0-20.0)
--- NOTE | 2025-03-05 06:13 | ECG ---
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
[2025-03-05 06:20] LABS: Blood Urea Nitrogen 30 mg/dL (9-23); Calcium 8.7 mg/dL (8.7-10.4); Glucose 109 mg/dL (74-106)
[2025-03-05 07:17] LABS: Anion Gap 11 (5-15)
[2025-03-05] MEDS: cefTRIAXone 1GM/50ML D5W 50 ML IV SCH (09:13)
[2025-03-05 09:24] LABS: Urine Protein, UAD Negative (Negative)
[2025-03-05] MEDS: EMPAGLIFLOZIN 10 MG TAB PO SCH (10:06)
[2025-03-05] MEDS: AZITHROMYCIN 500MG/ 250ML 250 ML IV SCH (10:07)
[2025-03-05 10:28] LABS: Amphetamine Screen, Urine Neg (NEGATIVE); Barbiturate Scree,Urine Neg (NEGATIVE); Benzodiazephine Screen, Urine Neg (NEGATIVE); Cocaine Screen, Urine Neg (NEGATIVE)
[2025-03-05 10:28] LABS: Alanine Aminotransferase 27.0 U/L (7-40); Albumin 3.3 g/dL (3.2-4.8); Total Protein 6.3 g/dL (5.7-8.2)
[2025-03-05 10:29] LABS: Alkaline Phosphatase 116.0 U/L (46-116); Bilirubin, Direct 0.6 mg/dL (<0.3); Bilirubin, Total 1.0 mg/dL (0.2-1.0)
[2025-03-05 10:29] LABS: Cannabinoid Screen, Urine Neg (NEGATIVE); Opiate Scree,Urine Neg (NEGATIVE); Phencyclidine Screen, Urine Neg (NEGATIVE)
[2025-03-05] MEDS: FUROSEMIDE 40 MG/4 ML VIAL IV ONE (10:59)
[2025-03-05 11:49] LABS: COVID19 ANTIGEN SOFIA FIA NEGATIVE (NEGATIVE)
--- NOTE | 2025-03-05 16:15 | DVHPNRES ---
Progress Note Date Seen: Mar 05, 2025 Resident Creating Document: RADHA MONGE RESIDENT Medical Necessity Reason Pt with a Central, PICC or Fol: No Subjective Review of Systems History of Present Illness 59-year-old male presents for evaluation of shortness for breath. Patient was admitted last night for CHF exacerbation. Today he left against medical advice. Now he returns with worsening shortness for breath and lower extremity swelling. Denies fever or chills, chest pain or any other complaints. The patient was seen and examined at bedside. His shortness of breath improved. Review of symptoms are currently negative otherwise addressed in HPI, Objective vital signs Vital Sign Date Time Temp Pulse Resp B/P (MAP) Pulse Ox O2 Delivery O2 Flow Rate FiO2 03/05/25 13:32 100 18 98 Room Air* 0 21 03/05/25 13:32 98.1 101/63 (76) 98.1 medications Current Medications Medications Dose Ordered Sig/Aayush Route Start Time Stop Time Status Last Admin Dose Admin Nitroglycerin 0.4 mg Q5MINP PRN SL 03/04/25 19:30 Morphine Sulfate 2 mg Q30M PRN IV 03/04/25 19:30 Empaglifozin 10 mg DAILY PO 03/05/25 10:00 03/05/25 10:06 10 MG Carvedilol 3.125 mg Q12HR PO 03/04/25 22:00 03/05/25 10:06 3.125 MG Furosemide 20 mg BIDD IV 03/05/25 06:00 03/05/25 06:00 20 MG Apixaban 5 mg BID PO 03/04/25 22:00 03/05/25 10:06 5 MG Ceftriaxone Sodium 50 ml @ 100 mls/hr DAILY@09 IV 03/05/25 09:00 03/05/25 09:13 100 MLS/HR Azithromycin 250 ml @ 125 mls/hr DAILY IV 03/05/25 10:00 03/05/25 10:07 125 MLS/HR Albuterol 2.5 mg Q6HPRN PRN NEB 03/04/25 19:45 Acetaminophen/ Hydrocodone Bitart 1 tab Q4HP PRN PO 03/04/25 19:45 Ondansetron HCl 4 mg Q4HP PRN IV 03/04/25 19:45 Acetaminophen 650 mg Q6HP PRN PO 03/04/25 19:45 laboratory and microbiology Laboratory Tests 03/05/25 04:50 03/04/25 19:07 Test 03/05/25 04:50 Range/Units Serum Glucose 109 H 74-106 mg/dL My Orders My Orders Orders - RADHA MONGE Procedure Category Date Status Time Maintain Fluid SHANNAN 03/05/25 In Process Restrictions 09:53 Strict I & O SHANNAN 03/05/25 In Process 09:53 RADHA MONGE Mar 05, 2025 16:15
--- NOTE | 2025-03-05 16:50 | DVHPNRES ---
Progress Note Date Seen: Mar 05, 2025 Resident Creating Document: RADHA MONGE RESIDENT Medical Necessity Reason Pt with a Central, PICC or Fol: No Subjective Review of Systems 59-year-old male presents for evaluation of shortness for breath. Patient was admitted last night for CHF exacerbation, then he left against medical advice. Now he returns with worsening shortness for breath and lower extremity swelling. Denies fever or chills.When we talked to the patient this morning the patient reported that his shortness of breath has been improved after oxygenation. He says during shortness of breath he can not do any normal physical activity. He takes all his antihypertensive medications regularly. The patient does not take Eliquis regularly. He had a history of flu few weeks back. He denies any chest pain,fever, chills, abdominal pain, nausea, vomiting or any other complaints at this time. Past Medical History Diabetes mellitus, hypertension, congestive heart failure Past Surgical History Denies Family History Noncontributory. Noncontributory Smoke: <1 pack per day for 1 year. ALCOHOL: occasional Drugs: None Social history: lives with family. 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 Currently he does not have any financial difficulty to pay the bills or food. Review of systems The patient was seen and examined at bedside, overnight events were reviewed. Review of system as per HPI. Review of rest of the systems are negative at this time. Objective vital signs Vital Sign Date Time Temp Pulse Resp B/P (MAP) Pulse Ox O2 Delivery O2 Flow Rate FiO2 03/05/25 13:32 100 18 98 Room Air* 0 21 03/05/25 13:32 98.1 101/63 (76) 98.1 medications Current Medications Medications Dose Ordered Sig/Aayush Route Start Time Stop Time Status Last Admin Dose Admin Nitroglycerin 0.4 mg Q5MINP PRN SL 03/04/25 19:30 Morphine Sulfate 2 mg Q30M PRN IV 03/04/25 19:30 Empaglifozin 10 mg DAILY PO 03/05/25 10:00 03/05/25 10:06 10 MG Carvedilol 3.125 mg Q12HR PO 03/04/25 22:00 03/05/25 10:06 3.125 MG Furosemide 20 mg BIDD IV 03/05/25 06:00 03/05/25 06:00 20 MG Apixaban 5 mg BID PO 03/04/25 22:00 03/05/25 10:06 5 MG Ceftriaxone Sodium 50 ml @ 100 mls/hr DAILY@09 IV 03/05/25 09:00 03/05/25 09:13 100 MLS/HR Azithromycin 250 ml @ 125 mls/hr DAILY IV 03/05/25 10:00 03/05/25 10:07 125 MLS/HR Albuterol 2.5 mg Q6HPRN PRN NEB 03/04/25 19:45 Acetaminophen/ Hydrocodone Bitart 1 tab Q4HP PRN PO 03/04/25 19:45 Ondansetron HCl 4 mg Q4HP PRN IV 03/04/25 19:45 Acetaminophen 650 mg Q6HP PRN PO 03/04/25 19:45 Examination Pt is lying on bed General Appearance: Alert, Oriented X3, Cooperative, Mild distress HEENT: Atraumatic, Mucous membranes moist/pink Respiratory: Clear to auscultation, Normal air movement, No added sounds Cardiovascular: JVD+, Mild crackles at left lung base, Regular rate, Normal S1, Normal S2, No murmurs Abdominal/ : Active bowel sounds, Soft, no distention, no tenderness Extremities:2+ edema, Normal pulses, No tenderness/swelling Skin: No Significant rash. Neuro: Normal speech, sensorimotor deficits none Psych/Mental Status: Mental status NL, Mood NL laboratory and microbiology Laboratory Tests 03/05/25 04:50 03/04/25 19:07 Test 03/05/25 04:50 Range/Units Serum Glucose 109 H 74-106 mg/dL Labs and/or images reviewed: Labs reviewed by me, Image(s) reviewed by me Problem List/Assessment/Plan Problem List/Assessment/Plan # Acute on chronic systolic biventricular heart failure (EF-10 to 15)% # aAcute hypoxic respiratory failure on admission requiring oxygen NC- improving # Pulmonary hypertension, group 2 # EDVIN on CKD likely due to VMN, Cardiorenal Syndrome # Hypertension (Controlled) Admitted to telemetry IV Lasix Empagliflozin Apixaban Carvedilol Nitroglycerin Fluid restriction Cardiac diet Strict input and output measured Monitor renal function # Acute pneumonia due to Gram-positive or Gram-negative organism CXR showed airspace opacities bilaterally Ordered cultures Ceftriaxone Azithromycin # Mild hypernatremia- asymptomatic monitor labs for now GI prophylaxis: not indicated at this jose DVT prophylaxis: patient is continuing Eliquis Diet: cardiac Goals of care discussed with the patient for more than 27 minutes: Full code status Case discussed with Dr. Martínez, patient and RN Plan discussed with: Patient, Other (RN) My Orders My Orders Orders - RADHA MONGE Procedure Category Date Status Time Maintain Fluid SHANNAN 03/05/25 In Process Restrictions 09:53 Strict I & O SHANNAN 03/05/25 In Process 09:53 Date of Service: Mar 05, 2025 Billing Provider: LEONIDAS MARTÍNEZ MD Common Visit Codes: [id number] INP/OBS CARE(HIGH) RADHA MONGE RESIDENT Mar 05, 2025 16:50 LEONIDAS MARTÍNEZ MD Mar 05, 2025 22:21
[2025-03-06] VITALS (9 sets, daily range): BP systolic 113–129; BP diastolic 82–97; PULSE 87–100; RESP 16–21; TEMP 97.4–98; O2SAT 93–100
[2025-03-06] MEDS: HYDROcodone-ACET 5/325MG TAB PO PRN (00:50)
[2025-03-06 06:28] LABS: Hematocrit 40.3 % (41.0-53.0); Hemoglobin 12.9 g/dL (13.5-17.5); Mean Corpuscular Hemoglobin 26.9 pg (28.0-32.0); Mean Corpuscular Volume 83.9 fL (80.0-100.0); Nucleated Red Blood Cells % 0.3 %
[2025-03-06 06:45] LABS: Anion Gap 9 (5-15); Carbon Dioxide 29 mmol/L (20-31); Chloride 107 mmol/L (98-107); Potassium 4.3 mmol/L (3.5-5.1); Sodium 145 mmol/L (136-145)
[2025-03-06 06:47] LABS: Calcium 9.0 mg/dL (8.7-10.4)
[2025-03-06 06:51] LABS: BUN/Creatinine Ratio 18.7 (10.0-20.0)
[2025-03-06 06:54] LABS: Blood Urea Nitrogen 32 mg/dL (9-23); Glucose 107 mg/dL (74-106)
[2025-03-06] MEDS: FUROSEMIDE 20 MG/2 ML VIAL IV ONE (11:16)
[2025-03-06] MEDS: DOXYCYCLINE 100 MG TAB/CAP PO SCH (11:18)
--- NOTE | 2025-03-06 17:46 | DVHPNRES ---
Progress Note Date Seen: Mar 06, 2025 Resident Creating Document: RADHA MONGE RESIDENT Medical Necessity Reason Pt with a Central, PICC or Fol: No Subjective Review of Systems 59-year-old male presents for evaluation of shortness for breath. Patient was admitted last night for CHF exacerbation, then he left against medical advice. Now he returns with worsening shortness for breath and lower extremity swelling. Denies fever or chills.When we talked to the patient this morning the patient reported that his shortness of breath has been improved after oxygenation. He says during shortness of breath he can not do any normal physical activity. He takes all his antihypertensive medications regularly. The patient does not take Eliquis regularly. He had a history of flu few weeks back. He denies any chest pain,fever, chills, abdominal pain, nausea, vomiting or any other complaints at this time. 03/06 interval events- The patient has no shortness of breath chest pains fever, chills abdominal pain or any other complaints at this time. The patient was concerned about his leg swelling. He had a clean wound on the left lateral side of his leg. Past Medical History Diabetes mellitus, hypertension, congestive heart failure Past Surgical History Denies Family History Noncontributory. Noncontributory Smoke: <1 pack per day for 1 year. ALCOHOL: occasional Drugs: None Social history: lives with family. 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 Currently he does not have any financial difficulty to pay the bills or food. Review of systems The patient was seen and examined at bedside, overnight events were reviewed. Review of system as per HPI. Review of rest of the systems are negative at this time. Objective vital signs Vital Sign Date Time Temp Pulse Resp B/P (MAP) Pulse Ox O2 Delivery O2 Flow Rate FiO2 03/06/25 16:30 97.5 87 16 129/95 (106) 93 97.5 03/06/25 09:45 Room Air 0.0 03/06/25 09:45 21 Total Intake and Output 03/05/25 03/05/25 03/06/25 15:00 23:00 07:00 Intake Total 300 ml 500 ml 800 ml Output Total 575 ml 1000 ml Balance -275 ml 500 ml -200 ml medications Current Medications Medications Dose Ordered Sig/Aayush Route Start Time Stop Time Status Last Admin Dose Admin Nitroglycerin 0.4 mg Q5MINP PRN SL 7/1/25 19:30 Morphine Sulfate 2 mg Q30M PRN IV 03/04/25 19:30 Empaglifozin 10 mg DAILY PO 03/05/25 10:00 03/06/25 11:30 10 MG Apixaban 5 mg BID PO 03/04/25 22:00 03/06/25 11:15 5 MG Ceftriaxone Sodium 50 ml @ 100 mls/hr DAILY@09 IV 03/05/25 09:00 03/06/25 11:20 100 MLS/HR Albuterol 2.5 mg Q6HPRN PRN NEB 03/04/25 19:45 Cancel Acetaminophen/ Hydrocodone Bitart 1 tab Q4HP PRN PO 03/04/25 19:45 03/06/25 00:50 1 TAB Ondansetron HCl 4 mg Q4HP PRN IV 03/04/25 19:45 Acetaminophen 650 mg Q6HP PRN PO 03/04/25 19:45 Doxycycline Monohydrate 100 mg Q12HR PO 03/06/25 10:00 03/06/25 11:18 100 MG Carvedilol 6.25 mg Q12HR PO 03/06/25 22:00 Furosemide 40 mg BIDD IV 03/06/25 18:00 Examination Pt is lying on bed General Appearance: Alert, Oriented X3, Cooperative, Mild distress HEENT: Atraumatic, Mucous membranes moist/pink Respiratory: mild crackles on both lungs, , Normal air movement, No added sounds Cardiovascular: Regular rate, Normal S1, Normal S2, No murmurs Abdominal/ : Active bowel sounds, Soft, no distention, no tenderness Extremities: 2 x 2 cm clean wound on lateral side of the left leg, No edema, Normal pulses, No tenderness/swelling Skin: No Significant rash, Neuro: Normal speech, sensorimotor deficits none Psych/Mental Status: Mental status NL, Mood NL Nurse was there as asphalt still operator during examination laboratory and microbiology Laboratory Tests 03/06/25 04:59 Test 03/06/25 04:59 Range/Units Serum Glucose 107 H 74-106 mg/dL Microbiology Date/Time Source Procedure Growth Status 03/05/25 20:00 Nose MRSA Screen - Final Complete 03/05/25 09:12 Voided Urine Urine Culture - Preliminary Resulted Labs and/or images reviewed: Labs reviewed by me, Image(s) reviewed by me Problem List/Assessment/Plan Problem List/Assessment/Plan # Acute on chronic systolic biventricular heart failure (EF-10 to 15)% # aAcute hypoxic respiratory failure on admission requiring oxygen NC- improving # Pulmonary hypertension, group 2 # EDVIN on CKD likely due to VMN, Cardiorenal Syndrome # Hypertension (Controlled) Admitted to telemetry IV Lasix increased to 40 mg from 20 Empagliflozin Apixaban Initially Carvedilol 3.125 then today changed to 6.25 Nitroglycerin Fluid restriction Cardiac diet Strict input and output measured Monitor renal function # Acute pneumonia due to Gram-positive or Gram-negative organism CXR showed airspace opacities bilaterally Ordered cultures Ceftriaxone Azithromycin replaced with doxycycline due to prolonged QT interval # Mild hypernatremia- asymptomatic monitor labs for now # ulcer in the left leg 2 x 2 cm clean wound in left lateral aspect of the legs due to injury related to wheelchair. Wound consult was done, GI prophylaxis: not indicated at this jose DVT prophylaxis: patient is continuing Eliquis Diet: cardiac Goals of care discussed with the patient for more than 27 minutes: Full code status Case discussed with Dr. Martínez, patient and RN Plan discussed with: Patient, Other (RN) My Orders My Orders Orders - RADHA MONEG RESIDENT Procedure Category Date Status Time Respiratory Culture BEN 03/05/25 Uncollected W/ Gs 18:57 * Wound Consult CONS 03/05/25 Transmitted Date of Service: Mar 06, 2025 Billing Provider: LEONIDAS MARTÍNEZ MD Common Visit Codes: [id number] INP/OBS CARE(HIGH) RADHA MONGE RESIDENT Mar 06, 2025 17:46 LEONIDAS MARTÍNEZ MD Mar 07, 2025 08:20
[2025-03-06] MEDS: FUROSEMIDE 40 MG/4 ML VIAL IV SCH (17:56)
[2025-03-06] MEDS: CARVEDILOL 3.125 MG TAB PO SCH (21:36)
[2025-03-07] VITALS (7 sets, daily range): BP systolic 110–144; BP diastolic 72–111; PULSE 73–96; RESP 16–18; TEMP 36.6; O2SAT 95–100
[2025-03-07 06:59] LABS: Anion Gap 10 (5-15); Calcium 9.1 mg/dL (8.7-10.4); Carbon Dioxide 28 mmol/L (20-31); Chloride 106 mmol/L (98-107); Potassium 3.9 mmol/L (3.5-5.1); Sodium 144 mmol/L (136-145)
[2025-03-07 07:05] LABS: BUN/Creatinine Ratio 19.5 (10.0-20.0); Glucose 103 mg/dL (74-106)
[2025-03-07 07:08] LABS: Blood Urea Nitrogen 30 mg/dL (9-23)
[2025-03-07] MEDS: CARVEDILOL 3.125 MG TAB PO ONE (10:30)
[2025-03-07] MEDS ORDERED: CARV-216 PO (12:52)
[2025-03-07] MEDS ORDERED: DOX100T PO (12:52)
[2025-03-07] MEDS ORDERED: FURO40TA4 PO (12:52)
--- NOTE | 2025-03-07 13:08 | DVHDSRES ---
Discharge Summary Date of Admission Resident Creating Document: RADHA MONGE Mar 04, 2025 at 19:25 Date of Discharge: Mar 07, 2025 Admitting Diagnosis Acute on chronic biventricular heart failure Labs/Diagnostic Data: Laboratory Results Test 03/07/25 05:04 03/06/25 04:59 03/05/25 09:53 03/05/25 09:12 Sodium Level 144 mmol/L (136-145) Potassium Level 3.9 mmol/L (3.5-5.1) Chloride Level 106 mmol/L (98-107) Carbon Dioxide Level 28 mmol/L (20-31) Anion Gap 10 (5-15) Blood Urea Nitrogen 30 mg/dL (9-23) Creatinine 1.54 mg/dL (0.700-1.30) Glomerular Filtration Rate Calc 51 mL/min (>90) BUN/Creatinine Ratio 19.5 (10.0-20.0) Serum Glucose 103 mg/dL (74-106) Calcium Level 9.1 mg/dL (8.7-10.4) White Blood Count 6.2 10^3/uL (4.4-10.8) Red Blood Count 4.81 10^6/uL (4.5-5.90) Hemoglobin 12.9 g/dL (13.5-17.5) Hematocrit 40.3 % (41.0-53.0) Mean Corpuscular Volume 83.9 fL (80.0-100.0) Mean Corpuscular Hemoglobin 26.9 pg (28.0-32.0) Mean Corpuscular Hemoglobin Concent 32.1 g/dL (32.0-36.0) Red Cell Distribution Width 17.9 % (11.8-14.3) Platelet Count 167 10^3/uL (140-450) Mean Platelet Volume 8.7 fL (6.9-10.8) Neutrophils (%) (Auto) 62.6 % (37.0-80.0) Lymphocytes (%) (Auto) 22.8 % (10.0-50.0) Monocytes (%) (Auto) 13.0 % (0.0-12.0) Eosinophils (%) (Auto) 1.2 % (0.0-7.0) Basophils (%) (Auto) 0.4 % (0.0-2.0) Neutrophils # (Auto) 3.9 10 ^3/uL (1.6-8.6) Lymphocytes # (Auto) 1.4 10 ^3/uL (0.4-5.4) Monocytes # (Auto) 0.8 10 ^3/uL (0-1.3) Eosinophils # (Auto) 0.1 10 ^3/uL (0-0.8) Basophils # (Auto) 0 10 ^3/uL (0-0.2) Nucleated Red Blood Cells 0.3 % Influenza Type A Antigen Negative (Negative) Influenza Type B Antigen Negative (Negative) Urine Color Colorless (Yellow) Urine Clarity Clear (Clear) Urine pH 7.0 (5.0-9.0) Urine Specific Gilbert 1.007 (1.001-1.035) Urine Protein Negative (Negative) Urine Ketones Negative (Negative) Urine Blood Negative /uL (Negative) Urine Nitrite Negative (Negative) Urine Bilirubin Negative (Negative) Urine Urobilinogen Normal mg/dL (Negative) Urine Leukocyte Esterase Negative /uL (Negative) Urine RBC 1 /hpf (0 - 3) Urine Microscopic WBC < 1 /HPF (0-3) Urine Squamous Epithelial Cells Few /hpf (<5) Urine Bacteria None seen /hpf (None Seen) Urine Hyaline Casts Few /lpf (0 - 2) Urine Glucose Trace mg/dL (Normal) Urine Opiates Screen Neg (NEGATIVE) Urine Fentanyl Screen Neg (NEGATIVE) Urine Barbiturates Screen Neg (NEGATIVE) Urine Phencyclidine Screen Neg (NEGATIVE) Urine Amphetamines Screen Neg (NEGATIVE) Urine Benzodiazepines Screen Neg (NEGATIVE) Urine Cocaine Screen Neg (NEGATIVE) Urine Cannabinoids Screen Neg (NEGATIVE) Test 03/05/25 04:50 03/05/25 00:00 03/04/25 19:07 Magnesium Level 2.5 mg/dL (1.6-2.6) Total Bilirubin 1.0 mg/dL (0.2-1.0) Direct Bilirubin 0.6 mg/dL (<0.3) Aspartate Amino Transferase (AST) 25 U/L (13-40) Alanine Aminotransferase (ALT) 27 U/L (7-40) Alkaline Phosphatase 116 U/L (46-116) Total Protein 6.3 g/dL (5.7-8.2) Albumin 3.3 g/dL (3.2-4.8) SARS-CoV-2 Antigen (Rapid) Negative (NEGATIVE) Troponin I High Sensitivity 54 ng/L (</=54) B-Type Natriuretic Peptide 4670.95 pg/mL (0-100) Other Laboratory Tests 03/07/25 05:04 03/06/25 04:59 Brief Hx & Hospital Course: 59-year-old male presents for evaluation of shortness for breath. Patient was admitted last night for CHF exacerbation, then he left against medical advice. Now he returns with worsening shortness for breath and lower extremity swelling. Denies fever or chills.When we talked to the patient this morning the patient reported that his shortness of breath has been improved after oxygenation. He says during shortness of breath he can not do any normal physical activity. He takes all his antihypertensive medications regularly. The patient does not take Eliquis regularly. He had a history of flu few weeks back. He denies any chest pain,fever, chills, abdominal pain, nausea, vomiting or any other complaints at this time. Past Medical History Diabetes mellitus, hypertension, congestive heart failure Past Surgical History Denies Family History Noncontributory. Noncontributory Smoke: <1 pack per day for 1 year. ALCOHOL: occasional Drugs: None Social history: lives with family. 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 Currently he does not have any financial difficulty to pay the bills or food. Brief hospital course: Patient was admitted with acute on chronic systolic biventricular heart failure, presenting with shortness of breath and hypoxic respiratory failure requiring oxygen support. Pulmonary hypertension group 2. Patient was admitted to telemetry. Diuresis was initiated with IV Lasix. Transitioned to oral Lasix. Fluid intake and output were closely monitored. Treatment started with empagliflozin, carvedilol(increased the dose as tolerated), nitroglycerine . Patient continued apixaban, patient was put on cardiac diet. Chest x-ray was also done because of his respiratory symptoms. Chest x-ray was done due to respiratory symptoms who is airspace opacities bilaterally was seen Pneumonia due to Gram-positive or Gram-negative organism.he started treatment with ceftriaxone and replace azithromycin and doxycycline due to prolonged QT interval. Mild asymptomatic hyponatremia was monitored. Diagnosed cardiorenal syndrome based on her elevated creatinine level, renal functions were closely monitored. A very small clean wound was noted in the left lateral leg. Wound consult and proper wound care was done. The discharge instructions and plan was discussed with the patient and family they agreed. Patient condition was improved, hemodynamically stable and in condition to be discharged home with the medications as prescribed. Patient was advised to follow up with PCP and Cardiology and in discharge Clinic. Pt is lying on bed General Appearance: Alert, Oriented X3, Cooperative, Not in acute distress HEENT: Atraumatic, Mucous membranes moist/pink Respiratory: Clear to auscultation, Normal air movement, No added sounds Cardiovascular: Regular rate, Normal S1, Normal S2, No murmurs Abdominal: Active bowel sounds, Soft, no distention, no tenderness Extremities: 1+ edema, Normal pulses, No tenderness/swelling Skin: Clean wound on left lower extremity with no signs of infection/inflammation Neuro: Normal speech, sensorimotor deficits none Psych/Mental Status: Mental status NL, Mood NL Nurse was there as tag and label cutter during examination Operations or Procedures EXAM: XY CHEST PORTABLE CLINICAL HISTORY: sob TECHNIQUE: Single AP view of the chest WID: COMPARISON: XY CHEST PORTABLE on DOS: 03/03/25, FINDINGS: Lines and tubes: None Chest: Cardiomegaly without pulmonary vascular congestion. Patchy mixed airspace opacities in the lungs greatest in the right mid lung. No pleural effusion or pneumothorax. Redemonstration of masslike prominence of the left suprahilar region. The osseous structures are grossly intact. IMPRESSION: 1. Persistent patchy mixed airspace opacities bilaterally greatest in the right mid lung which could reflect multifocal pneumonia. 2. Unchanged masslike prominence of the left suprahilar region. 3. Mild cardiomegaly. Condition at Discharge: Stable Final Diagnosis/Problems List Acute on chronic systolic biventricular heart failure EF 10-15 Acute hypoxic respiratory failure on admission requiring oxygen by nasal cannula improving EDVIN on CKD likely due to VM and cardiorenal syndrome. Hypertension controlled. Acute pneumonia due to Gram-positive and Gram-negative organism Mild asymptomatic hyponatremia. Discharge Disposition: Home Discharge Instruct/Medications Diet: Cardiac 2g Na,low cholest Activity: No Restrictions, As Tolerated Follow Up/Referral: fu with pcp in 1 week Medications: Continue lasix 40mg po bid Coreg was increased to 12.5 mg from 6.25 Patient will follow-up in the discharge clinic after 1 week All other home medications will be continued. Scheduled Apixaban Base (Eliquis), 1 TAB PO BID, (Reported) Carvedilol (Coreg), 12.5 MG PO Q12HR Doxycycline Monohydrate (Doxycycline Monohydrate), 100 MG PO Q12HR Empagliflozin (Jardiance), 1 TAB PO DAILY, (Reported) Famotidine (Pepcid Tablet), 1 TAB PO DAILY, (Reported) Furosemide (Furosemide), 40 MG PO BID Irbesartan-Hydrochlorothiazide (Irbesartan/Hydrochlorothi 150-12.5 mg), 1 TAB PO DAILY, (Reported) Nifedipine (Nifedipine Er), 1 TAB PO DAILY, (Reported) Spironolactone (Spironolactone), 0.5 TAB PO DAILY, (Reported) Torsemide Injection (Torsemide), 0.5 TAB PO DAILY, (Reported) Discontinued Medications Carvedilol (Carvedilol), 1 TAB PO BID, (Reported) Discharge Statement: "Patient was advised to return to the ER or call 911 if any headaches, dizziness, shortness of breath, chest pain, abdominal pain, bleeding, fevers, or worsening of medical condition. Patient was counseled about treatment plan, medications, possible side effects, patientverbalized understanding. All questions were answered to the best of my ability. This discharge took greater then 30 minutes in planning, reviewing documentation, counseling the patient, and discussing with other team members." ASSESSMENT ASSESSMENT Assessment CHF exacerbation Date of Service: Mar 07, 2025 Billing Provider: LEONIDAS WHATLEY MD Common Visit Codes: [id number] DISCH DAY >30min RADHA MONGE RESIDENT Mar 07, 2025 13:08 GHAZAL GEIGER RESIDENT Mar 07, 2025 14:54 LEONIDAS WHATLEY MD Mar 09, 2025 13:26
[2025-03-07] MEDS ORDERED: CARVEDILOL 12.5 MG TAB PO SCH (22:00)
== END 2025-03-07 17:50 | disposition home or self-care (01) | DRG 133 ==
LOC: ER 17:57 → OVERFLOW 19:25 → TELE-WESTW 03-05 13:16
PROVIDERS: ADMIT Internal Medicine; ATTEND Internal Medicine
DX: J96.01 Acute respiratory failure with hypoxia (principal); N17.0 Acute kidney failure with tubular necrosis; I50.23 Acute on chronic systolic (congestive) heart failure; J15.69 Pneumonia due to other Gram-negative bacteria; J15.9 Unspecified bacterial pneumonia; I13.0 Hypertensive heart and chronic kidney disease with heart failure and stage 1 through stage 4 chronic kidney disease, or unspecified chronic kidney disease; E87.1 Hypo-osmolality and hyponatremia; E11.22 Type 2 diabetes mellitus with diabetic chronic kidney disease; N18.9 Chronic kidney disease, unspecified; Z20.822 Contact with and (suspected) exposure to COVID-19; F17.210 Nicotine dependence, cigarettes, uncomplicated
CPT/HCPCS: 36415; 71045; 80048; 80076; 80307; 81001; 83735; 83880; 84484; 85025; 87081; 87086; 87426; 87804; 93005; G0378

== ENCOUNTER 2025-03-14 15:38 | Inpatient (IN) | payer MEDICAID ==
[~2025-03-14] VITALS: Ht 198.1 cm; Wt 148.2 kg
[~2025-03-14 15:38] MED LIST changes: +CARV-216 PO; -CARV6.2551 PO; +DOX100T PO; +FURO40TA4 PO
--- NOTE | 2025-03-14 16:35 | ED.PDOC ---
Musculoskeletal HPI Comments Discharge diagnosis from 03/07/25 Acute on chronic systolic biventricular heart failure EF 10-15 Acute hypoxic respiratory failure on admission requiring oxygen by nasal cannula improving EDVIN on CKD likely due to VM and cardiorenal syndrome. Hypertension controlled. Acute pneumonia due to Gram-positive and Gram-negative organism Mild asymptomatic hyponatremia. HPI: 59 year old male presents to the emergency department with a chief complaint of bilateral leg swelling onset 3 days. PMHx CHF, HTN, DM. Patient was discharged from [facility] on 03/07/25, was admitted due to CHF exacerbation, discharged with prescription of Lasix. Patient states leg swelling has worsen since discharge, returned to ED. No other symptoms or modifying factors present at this time. Initial Vitals BP: 114/84 HR: 87 RR: 20 O2: 97% Temp: 97.5 F Past Medical History: CHF, HTN, DM Past Surgical History: Denies Social History: Denies ETOH, smoking, and drug use. Medications: Lasix, Coreg Allergies: NKDA HPI: Poor Historian. REVIEW OF SYSTEMS: CONSTITUTIONAL: Denies acute: fever, diaphoresis, chills, generalized weakness. HEAD: Denies acute: headache, photophobia Eyes: Denies acute: Double vision, vision loss, eye pain, eye discharge. EARS: Denies acute: tinnitus, hearing loss, ear discharge, ear pain, THROAT: Denies acute: sore throat, swelling, difficulty swallowing , pain with swallowing, change in voice. NECK: Denies acute: neck pain, neck swelling, stiff neck. HEART: Denies acute : chest pain, palpitations, LUNGS: Denies acute: SOB, wheezing, cough, hemoptysis ABDOMEN: Denies acute: abdominal pain, Nausea, Vomiting, diarrhea, melena , hematemesis, hematochezia SKIN: Denies acute: rash, redness, lesions, itchiness. EXTREMITIES: Denies acute: calf pain, numbness, tingling, weakness, denies pain in extremity. Denies acute: Low back pain. Neuro: Denies acute: focal neurological deficit, motor or sensory focal neurological de ficit, tremors, seizure like activity, confusion, dizziness, change in mental status, loss of bowel or bladder function, cauda equina like symptoms. : Denies acute: dysuria, hematuria, flank pain, increase in urinary frequency. PSYCH: Denies acute: hallucination, suicidal ideation, homicidal ideation. PHYSICAL EXAM: General: ----mild----acute distress, awake and alert. Head: normocephalic, atraumatic. Neck: supple, trachea is midline, no swelling. Throat: Normal phonation. Eyes:, no erythema, no purulent discharge, no proptosis, no icterus. Heart: regular rate, regular rhythm, no significant murmur appreciated. Lungs: no apparent respiratory distress, Able to speak in full sentences. No wheezing, no rhonchi, no crackles. No stridors Clear to auscultation bilaterally. Abdomen: non tender to palpation, non distended, soft, no guarding, no rebound, + bowel sounds. Obese Neuro: Awake, Alert, oriented to name, self, situation, follows commands GCS=15. Speech is normal. Skin: no petechia, no purpura, no cyanosis, non-pale, not jaundice. Lower extremities: --3/4 b/l - Pitting edema no deformity, no focal swelling, no calf TTP. Makes eye contact. moves all four extremities. Face: no apparent facial droop. ED COURSE: DISCLAIMER: This medical document was created using an electronic medical record system with voice recognition software and computerized dictation system. Although this document has been carefully reviewed, there might still be some phonetic and typographical errors. Occasional wrong-word or "sound-alike" substitutions may have occurred due to the inherent limitations of voice recognition software. These areas are purely typographical due to imperfections of the software programs and do not reflect any compromise in the patient's medical care. Please read the chart carefully and recognize, using context, where these substitutions have occurred. Chief Complaint: Lower Extremity Time Seen by MD: 16:10 Primary Care Provider: HERI JENSEN Reviewed Notes: Medications, Allergies Allergies: Coded Allergies: NO KNOWN ALLERGIES (Unverified , 12/31/24) Home Meds Active Scripts Furosemide (Furosemide) 40 Mg Tab, 40 MG PO BID for 10 Days, #20 TAB Prov:JADE REYNOLDS RESIDENT 03/07/25 Doxycycline Monohydrate (Doxycycline Monohydrate) 100 Mg Tab, 100 MG PO Q12HR for 3 Days, #6 TAB Prov:DEBRA HERNÁNDEZJADE GAMBOA RESIDENT 03/07/25 Carvedilol (COREG) 12.5 Mg Tab, 12.5 MG PO Q12HR for 30 Days, #60 TAB 2 Refills Prov:DEBRA MCKINNEYJADE GAMBOA RESIDENT 03/07/25 Reported Medications Nifedipine (Nifedipine Er) 90 Mg Tab, 1 TAB PO DAILY for 90 Days, #90 03/05/25 Irbesartan-Hydrochlorothiazide (Irbesartan/Hydrochlorothi 150-12.5 mg) 1 Tab Tab, 1 TAB PO DAILY for 90 Days, #90 [IRBESARTAN-HYDROCHLOROTHIAZIDE 300-12.5 MG] 03/05/25 Apixaban Base (ELIQUIS) 5 Mg Tab, 1 TAB PO BID for 30 Days, #60 03/05/25 Famotidine (PEPCID TABLET) 20 Mg Tb, 1 TAB PO DAILY for 30 Days, #30 03/05/25 Spironolactone (Spironolactone) 25 Mg Tab, 0.5 TAB PO DAILY for 30 Days, #15 03/05/25 Torsemide Injection (Torsemide) 20 Mg Tab, 0.5 TAB PO DAILY for 30 Days, #15 03/05/25 Empagliflozin (Jardiance) 10 Mg Tab, 1 TAB PO DAILY for 30 Days, #30 03/05/25 Discontinued Reported Medications Carvedilol (Carvedilol) 6.25 Mg Tab, 1 TAB PO BID for 30 Days, #60 03/05/25 Information Source: Patient Mode of Arrival: Wheelchair Location: Bilateral Extremity Location: Leg Timing: Days Prehospital treatment: None Severity: Moderate Able to Move Extremity: Yes Bear Weight: Limited Pain: Moderate Mechanism: Spontaneous DVT Risk Factors: CHF Associated signs and symptoms: Swelling Past Medical History PAST MEDICAL HISTORY: CHF, DM, HTN Surgical History: Denies all surgeries Family History Family History: Reviewed,noncontributory to illness, No family hx of Cancer, No family hx of DM, No family hx of Heart ameena, No family hx of HTN, No family hx ofKidney ameena, No family hx of Liver ameena, No family hx of Lung ameena, No family hx of Stroke Social History Smoker: Cigarettes Alcohol: Occasionally Drugs: Denies Drug Use Lives In: Home Was a procedure done? Was a procedure done?: No X-Ray, Labs, Meds, VS Vital Signs Date Time Temp Pulse Resp B/P (MAP) Pulse Ox O2 Delivery O2 Flow Rate FiO2 03/14/25 18:34 120 03/14/25 17:17 88 22 98 Room Air* 0 21 03/14/25 17:17 120/74 03/14/25 17:17 98.0 88 22 120/74 (89) 98 98.0 03/14/25 15:49 97.5 87 20 114/84 (94) 97 97.5 Lab Test 03/14/25 18:40 03/14/25 17:47 Range/Units Troponin I High Sensitivity 50 54 </=54 ng/L White Blood Count 5.6 4.4-10.8 10^3/uL Red Blood Count 5.37 4.5-5.90 10^6/uL Hemoglobin 14.1 13.5-17.5 g/dL Hematocrit 45.5 41.0-53.0 % Mean Corpuscular Volume 84.7 80.0-100.0 fL Mean Corpuscular Hemoglobin 26.3 L 28.0-32.0 pg Mean Corpuscular Hemoglobin Concent 31.1 L 32.0-36.0 g/dL Red Cell Distribution Width 19.8 H 11.8-14.3 % Platelet Count 136 L 140-450 10^3/uL Mean Platelet Volume 8.8 6.9-10.8 fL Neutrophils (%) (Auto) 66.7 37.0-80.0 % Lymphocytes (%) (Auto) 21.9 10.0-50.0 % Monocytes (%) (Auto) 9.7 0.0-12.0 % Eosinophils (%) (Auto) 0.6 0.0-7.0 % Basophils (%) (Auto) 1.1 0.0-2.0 % Neutrophils # (Auto) 3.8 1.6-8.6 10 ^3/uL Lymphocytes # (Auto) 1.2 0.4-5.4 10 ^3/uL Monocytes # (Auto) 0.5 0-1.3 10 ^3/uL Eosinophils # (Auto) 0 0-0.8 10 ^3/uL Basophils # (Auto) 0.1 0-0.2 10 ^3/uL Nucleated Red Blood Cells 0.1 % Sodium Level 149 H 136-145 mmol/L Potassium Level 4.0 3.5-5.1 mmol/L Chloride Level 111 H 98-107 mmol/L Carbon Dioxide Level 28 20-31 mmol/L Anion Gap 10 5-15 Blood Urea Nitrogen 38 H 9-23 mg/dL Creatinine 1.81 H 0.700-1.30 mg/dL Glomerular Filtration Rate Calc 42 >90 mL/min BUN/Creatinine Ratio 21.0 H 10.0-20.0 Serum Glucose 124 H 74-106 mg/dL Calcium Level 9.9 8.7-10.4 mg/dL Magnesium Level 2.6 1.6-2.6 mg/dL Total Bilirubin 1.3 H 0.2-1.0 mg/dL Aspartate Amino Transferase (AST) 21 13-40 U/L Alanine Aminotransferase (ALT) 25 7-40 U/L Alkaline Phosphatase 117 H 46-116 U/L B-Type Natriuretic Peptide > 5000.00 0-100 pg/mL Total Protein 7.0 5.7-8.2 g/dL Albumin 3.9 3.2-4.8 g/dL Current Medications Medications (Trade) Dose Ordered Sig/Aayush Route Start Time Stop Time Status Last Admin Furosemide (Lasix Injection) 80 mg ONCE ONCE IV 03/14/25 16:45 03/14/25 16:46 DC 03/14/25 17:17 [place] [id number] Ph: [phone] DIAGNOSTIC IMAGING Diagnostic Imaging Report : [id number] Signed PATIENT: CHRIS DUPONT ACCT: [id number] UNIT: [id number] : 1965 LOC: ER ROOM / BED: / AGE / SEX: 59 / M ADM STATUS: REG ER SERVICE [id number] ORDERING PHYSICIAN: LJ RAJAN DO PROCEDURE(s): CXRP - CHEST PORTABLE REASON: leg swelling, chf ORDER NUMBER(s): [id number], ACCESSION NUMBER(s): [id number] CHEST RADIOGRAPH Indication: leg swelling, chf Technique: Single frontal view of the chest was obtained Comparison: XY CHEST PORTABLE on DOS: 03/04/25, XY CHEST PORTABLE on DOS: 03/03/25, XY CHEST PORTABLE on DOS: 12/31/24 FINDINGS: Lines and Tubes: None Lungs: Improving right lower lobe airspace disease when compared to 03/04/2025 Pleura: No effusion. No pneumothorax. Cardiomediastinal contours: No change in cardiac size Bones: No acute osseous abnormality. IMPRESSION: 1. No change in cardiac size 2. Slightly improving pulmonary edema. ATED BY: VARINDER GARIBAY Jr., DO DICTATED DATE/TIME: 03/14/251706 SIGNED BY: VARINDER GARIBAY Jr., SIGNED DATE/TIME: 03/14/251706 CC: Time of 1ST Reevaluation: 16:40 Reevaluation 1ST: Unchanged Patient Education/Counseling: Diagnosis, Treatment Family Education/Counseling: No Family Present Departure 1 Departure Time of Disposition: 16:54 Impression: Primary Impression: Acute on chronic diastolic heart failure Additional Impression: Thrombocytopenia Disposition: ADMITTED INPATIENT Admit to: [facility] Condition: Guarded Discharged With: Self Critical Care Note Critical Care Time?: No I personally scribed for LJ RAJAN DO ([email or web address]) on 03/14/25 at 16:35. Electronically submitted by Aleksandra Montes ([email or web address]). I personally scribed for LJ RAJAN DO ([email or web address]) on 03/14/25 at 18:19. Electronically submitted by Aleksandra Montes ([email or web address]). I personally scribed for LJ RAJAN DO ([email or web address]) on 03/14/25 at 20:00. Electronically submitted by Aleksandra Montes ([email or web address]). LJ RAJAN DO Mar 14, 2025 16:35
--- NOTE | 2025-03-14 17:09 | DVH ---
CHEST RADIOGRAPH Indication: leg swelling, chf Technique: Single frontal view of the chest was obtained Comparison: XY CHEST PORTABLE on DOS: 03/04/25, XY CHEST PORTABLE on DOS: 03/03/25, XY CHEST PORTABLE on DOS: 12/31/24 FINDINGS: Lines and Tubes: None Lungs: Improving right lower lobe airspace disease when compared to 03/04/2025 Pleura: No effusion. No pneumothorax. Cardiomediastinal contours: No change in cardiac size Bones: No acute osseous abnormality. IMPRESSION: 1. No change in cardiac size 2. Slightly improving pulmonary edema.
[2025-03-14 17:17] VITALS: PULSE 88; RESP 22; O2SAT 98
[2025-03-14] MEDS: FUROSEMIDE 100 MG/10ML VIAL IV ONE (17:17)
[2025-03-14 18:11] LABS: Hematocrit 45.5 % (41.0-53.0); Hemoglobin 14.1 g/dL (13.5-17.5); Mean Corpuscular Hemoglobin 26.3 pg (28.0-32.0); Mean Corpuscular Volume 84.7 fL (80.0-100.0); Nucleated Red Blood Cells % 0.1 %
[2025-03-14 18:27] LABS: Alanine Aminotransferase 25 U/L (7-40); Albumin 3.9 g/dL (3.2-4.8); Anion Gap 10 (5-15); BUN/Creatinine Ratio 21.0 (10.0-20.0); Calcium 9.9 mg/dL (8.7-10.4); Carbon Dioxide 28 mmol/L (20-31); Magnesium 2.6 mg/dL (1.6-2.6); Potassium 4.0 mmol/L (3.5-5.1); Total Protein 7.0 g/dL (5.7-8.2)
[2025-03-14 18:28] LABS: Alkaline Phosphatase 117 U/L (46-116); Bilirubin, Total 1.3 mg/dL (0.2-1.0); Blood Urea Nitrogen 38 mg/dL (9-23); Chloride 111 mmol/L (98-107); Glucose 124 mg/dL (74-106); Sodium 149 mmol/L (136-145)
--- NOTE | 2025-03-14 22:48 | DVHHP2 ---
History of Present Illness History of Present Illness Patient is 59 years old male with a past medical history of hypertension, diabetes mellitus type 2, HFrEF, LVEF 10-15%, CKD stage III came with a complaint of worsening bilateral leg swelling. Patient was recently discharged from [facility] last week and following that patient is leg swelling was getting worse, patient reported he did not have his Lasix for last couple of days. Patient denied any acute chest pain or worsening shortness of breaths, diarrhea, dysuria, dysarthria, palpitation, cough or change in vision. At ER patient was tachycardic, tachypneic. Initial lab workup revealed troponin I-54> 50>49, BNP> 5000, platelet 136, sodium 149, serum creatinine 1.81, BUN 38, bilirubin 1.3, AST/ALT within normal limit, alkaline phosphatase 117. CXR- bilateral pulmonary vascular congestion with slight improvement from before. Recent echo 2D on 12/31/2024 revealed LVEF 10-15%, by ventricular and biatrial enlargement, global hypokinesia, RVSP 61 mm of Hg. Past Medical History hypertension, diabetes mellitus type 2, HFrEF, LVEF 10-15%, CKD stage III Past Surgical History None Family History Father and mother had heart disease father had heart surgery Past Social History Smoker <1 pack per day for 1 year, occasional alcoholism, denies substance abuse, lives with sister Review of Systems Review of Systems Allergy- NKDA Personal History/ Social History- Patient was seen today at the bedside. Cardiovascular- deny acute chest pain or shortness of breath or cough or palpitation Respiratory denies cough or short of breath or wheezing Gastrointestinal- denies any rectal bleeding, nausea or vomiting Musculoskeletal-denies acute joint swelling or tenderness or redness Neurological- denies acute dysarthria, dysphagia, change in vision Psychiatry- denies depression or SI or HI Skin- denies acute rash or purpura Allergies: Coded Allergies: NO KNOWN ALLERGIES (Unverified , 12/31/24) Medications Current Medications Medications Dose Ordered Sig/Aayush Route Start Time Stop Time Status Last Admin Dose Admin Sodium Chloride 10 ml Q8HR IV 03/15/25 06:00 Apixaban 5 mg BID PO 03/15/25 10:00 UNV Carvedilol 12.5 mg Q12HR PO 03/15/25 10:00 Empaglifozin 10 mg DAILY PO 03/15/25 10:00 Famotidine 20 mg DAILY PO 03/15/25 10:00 Spironolactone 12.5 mg DAILY PO 03/15/25 10:00 Patient Own Medication 1 tab DAILY PO 03/15/25 10:00 UNV Patient Own Medication 1 tab DAILY PO 03/15/25 10:00 UNV Furosemide 60 mg BIDD IV 03/15/25 06:00 Enoxaparin Sodium 40 mg DAILY@2200 SC 03/15/25 22:00 UNV Exam Vital Signs Vital Signs Date Time Temp Pulse Resp B/P (MAP) Pulse Ox O2 Delivery O2 Flow Rate FiO2 03/14/25 21:23 77 18 136/97 (110) 99 03/14/25 17:17 Room Air* 0 21 03/14/25 17:17 98.0 98.0 Exam General examination- awake, alert, oriented HEENT- PEERLA, no acute nasal discharge Cardiovascular- S1-S2 audible, rate and rhythm regular, no murmur Respiratory- bilateral lung crackles++ Gastrointestinal-nontender, bowel sound+. Nondistended Musculoskeletal-no acute joint swelling or tenderness or redness Lower extremity- bilateral leg edema+++ Neurological- cranial nerves intact, no acute dysarthria or dysphagia Psychiatry- denies depression or SI or HI Skin- no acute rash or purpura Labs/Xrays Labs Test 03/14/25 20:47 03/14/25 17:47 Range/Units Troponin I High Sensitivity 49 </=54 ng/L White Blood Count 5.6 4.4-10.8 10^3/uL Red Blood Count 5.37 4.5-5.90 10^6/uL Hemoglobin 14.1 13.5-17.5 g/dL Hematocrit 45.5 41.0-53.0 % Mean Corpuscular Volume 84.7 80.0-100.0 fL Mean Corpuscular Hemoglobin 26.3 L 28.0-32.0 pg Mean Corpuscular Hemoglobin Concent 31.1 L 32.0-36.0 g/dL Red Cell Distribution Width 19.8 H 11.8-14.3 % Platelet Count 136 L 140-450 10^3/uL Mean Platelet Volume 8.8 6.9-10.8 fL Neutrophils (%) (Auto) 66.7 37.0-80.0 % Lymphocytes (%) (Auto) 21.9 10.0-50.0 % Monocytes (%) (Auto) 9.7 0.0-12.0 % Eosinophils (%) (Auto) 0.6 0.0-7.0 % Basophils (%) (Auto) 1.1 0.0-2.0 % Neutrophils # (Auto) 3.8 1.6-8.6 10 ^3/uL Lymphocytes # (Auto) 1.2 0.4-5.4 10 ^3/uL Monocytes # (Auto) 0.5 0-1.3 10 ^3/uL Eosinophils # (Auto) 0 0-0.8 10 ^3/uL Basophils # (Auto) 0.1 0-0.2 10 ^3/uL Nucleated Red Blood Cells 0.1 % Sodium Level 149 H 136-145 mmol/L Potassium Level 4.0 3.5-5.1 mmol/L Chloride Level 111 H 98-107 mmol/L Carbon Dioxide Level 28 20-31 mmol/L Anion Gap 10 5-15 Blood Urea Nitrogen 38 H 9-23 mg/dL Creatinine 1.81 H 0.700-1.30 mg/dL Glomerular Filtration Rate Calc 42 >90 mL/min BUN/Creatinine Ratio 21.0 H 10.0-20.0 Serum Glucose 124 H 74-106 mg/dL Calcium Level 9.9 8.7-10.4 mg/dL Total Bilirubin 1.3 H 0.2-1.0 mg/dL Aspartate Amino Transferase (AST) 21 13-40 U/L Alanine Aminotransferase (ALT) 25 7-40 U/L Alkaline Phosphatase 117 H 46-116 U/L B-Type Natriuretic Peptide > 5000.00 0-100 pg/mL Total Protein 7.0 5.7-8.2 g/dL Albumin 3.9 3.2-4.8 g/dL SEPSIS Sepsis Screen Date sepsis recognized/suspect: Mar 14, 2025 Time Sepsis recognized/suspect: 1547 Recent Procedure: No On Antibiotic Therapy: No Respiratory Rate >20: No Heart Rate >90: No Temp<36 C (96.8 F) or >38.3 C: No SBP <90 or MAP <65 mmHG: No New Acute Mental Status Change: No Is the patient on CPAP, BIPAP,: No Physician Orders Senior Physical Therapist (03/14/25 ) Drug Screen (03/14/25 16:38) Chest Portable (03/14/25 16:38) Electrocardigram (03/14/25 16:38) Saline Lock (03/14/25 17:09) Admit (03/14/25 22:19) Code Status (03/14/25 22:19) Sodium Chloride Lock (Saline Lock Ns) (03/15/25 06:00) Complete Blood Count (03/15/25 04:00) Comprehensive Metabolic Panel (03/15/25 04:00) Cardiac Diet-2gna,Lofat,Lochol (03/15/25 Breakfast) Notify Of Changes From Base (03/14/25 22:19) Section Gang For 24 Hours (03/14/25 22:19) Apixaban (Eliquis) (03/15/25 10:00) Carvedilol Tablet (Coreg Tablet) (03/15/25 10:00) Empagliflozin (Jardiance) (03/15/25 10:00) Famotidine Tablet (Pepcid Tablet) (03/15/25 10:00) Spironolactone (Aldactone) (03/15/25 10:00) (Nf) Irbesartan-Hydrochlorothiazide (Irb (03/15/25 10:00) (Nf) Nifedipine (Nifedipine Er) (03/15/25 10:00) Furosemide Injection (Lasix Injection) (03/15/25 06:00) Enoxaparin Sodium (Lovenox) (03/15/25 22:00) Enoxaparin Sodium (Lovenox) (03/14/25 22:30) Magnesium (03/14/25 22:25) Phosphorus (03/14/25 22:25) Vital Signs Date Time Temp Pulse Resp B/P (MAP) Pulse Ox O2 Delivery O2 Flow Rate FiO2 03/14/25 21:23 77 18 136/97 (110) 99 03/14/25 18:34 120 03/14/25 17:17 88 22 98 Room Air* 0 21 03/14/25 17:17 120/74 03/14/25 17:17 98.0 88 22 120/74 (89) 98 98.0 03/14/25 15:49 97.5 87 20 114/84 (94) 97 97.5 Laboratory Tests Test 03/14/25 17:47 White Blood Count 5.6 10^3/uL (4.4-10.8) Medications Medications Dose Ordered Sig/Aayush Route Start Time Stop Time Status Last Admin Dose Admin Furosemide 80 mg ONCE ONCE IV 03/14/25 16:45 03/14/25 16:46 DC 03/14/25 17:17 80 MG Assessment/Plan Assessment/Plan Assessment and plan # EDVIN likely due to VMN -avoid dehydration and nephrotoxic drugs -Monitor BMP # acute on chronic HFrEF, LVEF 10-15% #Bilateral leg edema likely due to acute on chronic HFrEF # hypertension -continue Lasix 60 mg IV b.i.d. -continue carvedilol 12.5 mg p.o. b.i.d. -continue Jardiance 10 mg p.o. daily -continue nifedipine 90 mg p.o. daily -losartan 50 mg p.o. daily -strict I&O #Pulmonary hypertension -continue current management #Diabetes mellitus type 2 -continue insulin sliding scale as prescribed # CKD stage III -avoid dehydration and nephrotoxic drugs # obesity -patient was counseled about the effect of obesity on health, weight reduction, healthy diet Diet --cardiac diet Goals of care, Code status full code ; discussed with >15 minutes PUD prophylaxis: Pantoprazole DVT prophylaxis: Lovenox Plan discussed with Dr. Oliveira , nursing staff, Total time spent on patient evaluation, chart review, assessment and plan, discussion discussion >35 minutes Plan discussed with: Patient, Other (RN) My Orders Orders - RAMONA JENNINGS RESIDENT Procedure Category Date Status Time Admit ADMIT 03/14/25 Transmitted 22:19 Code Status CODE 03/14/25 Transmitted 22:19 Sodium Chloride Lock PHA 03/15/25 In Process (Saline Lock Ns) 06:00 Complete Blood Count LAB 03/15/25 Verified 04:00 Comprehensive LAB 03/15/25 Verified Metabolic Panel 04:00 Cardiac DIET 03/15/25 Transmitted Diet-2gna,Lofat,Lochol Breakfast Notify Of Changes SHANNAN 03/14/25 In Process From Base 22:19 Section Gang For SHANNAN 03/14/25 In Process 24 Hours 22:19 Apixaban (Eliquis) PHA 03/15/25 Logged 10:00 Carvedilol Tablet PHA 03/15/25 In Process (Coreg Tablet) 10:00 Empagliflozin PHA 03/15/25 In Process (Jardiance) 10:00 Famotidine Tablet PHA 03/15/25 In Process (Pepcid Tablet) 10:00 Spironolactone PHA 03/15/25 In Process (Aldactone) 10:00 (NF) PHA 03/15/25 Logged Irbesartan-Hydrochlorothiazide 10:00 (Nf) Nifedipine PHA 03/15/25 Logged (Nifedipine Er) 10:00 Furosemide Injection PHA 03/15/25 In Process (Lasix Injection) 06:00 Enoxaparin Sodium PHA 03/15/25 Logged (Lovenox) 22:00 Enoxaparin Sodium PHA 03/14/25 Logged (Lovenox) 22:30 Magnesium LAB 03/14/25 In Process 22:25 Phosphorus LAB 03/14/25 In Process 22:25 Date of Service: Mar 14, 2025 Billing Provider: HARLAN OLIVEIRA MD Common Visit Codes: [id number] INP/OBS CARE (HIGH) Secondary Visit Codes: [id number] CARE PLAN 30 MINUTES RAMONA JENNINGS RESIDENT Mar 14, 2025 22:48
[2025-03-14 22:54] LABS: Magnesium 2.4 mg/dL (1.6-2.6)
[2025-03-15] VITALS (9 sets, daily range): BP systolic 101–131; BP diastolic 62–91; PULSE 80–87; RESP 17–20; TEMP 97.3–98.5; O2SAT 92–100
[2025-03-15] MEDS ORDERED: DEXTROSE (50%) 50ML SYRG IV PRN (02:15)
[2025-03-15] MEDS: ENOXAPARIN SOD 40 MG/0.4 ML SYRINGE SC ONE (02:25)
[2025-03-15] MEDS: SODIUM CHLOR 0.9% PF (SALINE LOCK) 10ML VIAL/SYR IV SCH (05:24)
[2025-03-15] MEDS: FUROSEMIDE 100 MG/10ML VIAL IV SCH (05:26)
[2025-03-15] MEDS: ACCU-CHEK COMFORT CURVE STRIP VI SCH (05:30)
[2025-03-15] MEDS: InsuLIN REG 1unit/0.01ml Soln (100units/ml) SC SCH (05:31)
[2025-03-15 06:41] LABS: Alanine Aminotransferase 21 U/L (7-40); Alkaline Phosphatase 98 U/L (46-116); Anion Gap 10 (5-15); BUN/Creatinine Ratio 18.2 (10.0-20.0); Calcium 9.6 mg/dL (8.7-10.4); Carbon Dioxide 29 mmol/L (20-31); Glucose 100 mg/dL (74-106); Potassium 4.0 mmol/L (3.5-5.1); Total Protein 6.4 g/dL (5.7-8.2)
[2025-03-15 06:42] LABS: Albumin 3.6 g/dL (3.2-4.8); Bilirubin, Total 1.2 mg/dL (0.2-1.0); Hematocrit 41.1 % (41.0-53.0); Hemoglobin 13.1 g/dL (13.5-17.5); Mean Corpuscular Hemoglobin 26.9 pg (28.0-32.0); Mean Corpuscular Volume 84.2 fL (80.0-100.0); Nucleated Red Blood Cells % 0.3 %
[2025-03-15 06:43] LABS: Blood Urea Nitrogen 35 mg/dL (9-23); Chloride 112 mmol/L (98-107); Sodium 151 mmol/L (136-145)
[2025-03-15] MEDS ORDERED: [UNRECOGNIZED DRUG - OTHER] PO SCH (10:00)
[2025-03-15] MEDS ORDERED: IRBESARTAN HYDROCHLOROTHIAZIDE PO SCH (10:00)
[2025-03-15] MEDS: CARVEDILOL 12.5 MG TAB PO SCH (10:36)
[2025-03-15] MEDS: FAMOTIDINE 20 MG TAB PO SCH (10:37)
[2025-03-15] MEDS: SPIRONOLACTONE 25 MG TAB PO SCH (10:38)
[2025-03-15] MEDS: LOSARTAN POTASSIUM 50 MG TAB PO SCH (10:38)
[2025-03-15] MEDS: APIXABAN 5 MG TAB PO SCH (10:38)
[2025-03-15] MEDS: EMPAGLIFLOZIN 10 MG TAB PO SCH (10:39)
[2025-03-15] MEDS: hydroCHLOROthiazide 25 MG TAB PO SCH (10:39)
--- NOTE | 2025-03-15 13:19 | DVHPN2 ---
Subjective Comfortable lying in bed. Admitted this morning for congestive heart failure exacerbation. Patient is getting Accu-Cheks and says he is not diabetic and wants Accu-Cheks to be discontinued. His recent blood sugar was 91. Changes from previous H/P or p: No Changes Objective Vitals Vital Signs Date Time Temp Pulse Resp B/P (MAP) Pulse Ox O2 Delivery O2 Flow Rate FiO2 03/15/25 10:39 126/85 03/15/25 10:36 91 03/15/25 09:07 97.6 17 100 97.6 03/15/25 08:00 Room Air* 0 21 Intake/Output Intake and Output 03/15/25 07:00 Intake Total 240 ml Balance 240 ml Intake Oral 240 ml Exam Comfortable in bed no distress. Heart regular rate and rhythm S1-S2. Lungs fair air movement without wheezing. Abdomen obese soft positive bowel sounds. Extremities positive edema in both lower extremities. Medications Current Medications Medications Dose Ordered Sig/Aayush Route Start Time Stop Time Status Last Admin Dose Admin Sodium Chloride 10 ml Q8HR IV 03/15/25 06:00 03/15/25 05:24 10 ML Apixaban 5 mg BID PO 03/15/25 10:00 03/15/25 10:38 5 MG Carvedilol 12.5 mg Q12HR PO 03/15/25 10:00 03/15/25 10:36 12.5 MG Empaglifozin 10 mg DAILY PO 03/15/25 10:00 03/15/25 10:39 10 MG Famotidine 20 mg DAILY PO 03/15/25 10:00 03/15/25 10:37 20 MG Spironolactone 12.5 mg DAILY PO 03/15/25 10:00 03/15/25 10:38 12.5 MG Nifedipine 90 mg DAILY PO 03/15/25 10:00 03/15/25 10:37 90 MG Furosemide 60 mg BIDD IV 03/15/25 06:00 03/15/25 05:26 60 MG Losartan Potassium 50 mg DAILY PO 03/15/25 10:00 03/15/25 10:38 50 MG Hydrochlorothiazide 12.5 mg DAILY PO 03/15/25 10:00 03/15/25 10:39 12.5 MG Laboratory Results Laboratory Tests 03/15/25 05:55 Chemistry Test 03/14/25 17:47 03/14/25 20:47 03/15/25 05:55 Albumin 3.9 g/dL (3.2-4.8) 3.6 g/dL (3.2-4.8) Calcium Level 9.9 mg/dL (8.7-10.4) 9.6 mg/dL (8.7-10.4) Magnesium Level 2.6 mg/dL (1.6-2.6) 2.4 mg/dL (1.6-2.6) Total Protein 7.0 g/dL (5.7-8.2) 6.4 g/dL (5.7-8.2) Phosphorus Level 3.9 mg/dL (2.4-5.1) Cardiac Markers Test 03/14/25 17:47 B-Type Natriuretic Peptide > 5000.00 pg/mL (0-100) LFT Test 03/14/25 17:47 03/15/25 05:55 Alanine Aminotransferase (ALT) 25 U/L (7-40) 21 U/L (7-40) Alkaline Phosphatase 117 U/L (46-116) H 98 U/L (46-116) Aspartate Amino Transferase (AST) 21 U/L (13-40) 20 U/L (13-40) Total Bilirubin 1.3 mg/dL (0.2-1.0) H 1.2 mg/dL (0.2-1.0) H HgA1c, TSH Test 03/15/25 05:55 Hemoglobin A1c 6.6 % A1C (<5.7) H Microbiology Microbiology Date/Time Source Procedure Growth Status 03/15/25 01:32 Nose MRSA Screen - Final Complete Assessment/Plan Assessment/Plan We will DC the Accu-Cheks given blood sugars are normal. Continue current IV diuretics. CHF education. Diet exercise and weight loss counseling is given. Further clinical management per clinical course. Discussed with the patient and nurse regarding care plan. Plan discussed with: Patient, Other My Orders Orders - JOSE CABRERA MD Procedure Category Date Status Time Strict I & O SHANNAN 03/15/25 In Process 11:36 Problem List: (1) Acute on chronic diastolic heart failure (2) Shortness of breath (3) Generalized weakness (4) Acute respiratory failure Date of Service: Mar 15, 2025 Billing Provider: UMER STAFFORD MD Common Visit Codes: [id number] INP/OBS CARE(LOW) JOSE CABRERA MD Mar 15, 2025 13:19
[2025-03-15] MEDS ORDERED: ENOXAPARIN SOD 40 MG/0.4 ML SYRINGE SC SCH (22:00)
[2025-03-16] VITALS (8 sets, daily range): BP systolic 100–122; BP diastolic 59–97; PULSE 73–91; RESP 16–18; TEMP 97.3–97.7; O2SAT 95–98
--- NOTE | 2025-03-16 13:40 | DVHPN2 ---
Subjective Comfortable lying in bed. Family is at bedside. Discussed with the family and patient regarding heart failure and underwent counseling and education. Changes from previous H/P or p: No Changes Objective Vitals Vital Signs Date Time Temp Pulse Resp B/P (MAP) Pulse Ox O2 Delivery O2 Flow Rate FiO2 03/16/25 10:00 107/59 03/16/25 10:00 73 03/16/25 09:12 97.7 18 98 97.7 03/16/25 08:00 Room Air* 0 21 Intake/Output Intake and Output 03/16/25 07:00 Intake Total 1430 ml Output Total 4275 ml Balance -2845 ml Intake Oral 1430 ml Output Urine Total 4275 ml # Voids 5 # Bowel Movements 3 Exam Comfortable in bed no distress. Heart regular rate and rhythm S1-S2. Lungs fair air movement without wheezing. Abdomen obese soft positive bowel sounds. Extremities positive edema in both lower extremities. Medications Current Medications Medications Dose Ordered Sig/Aayush Route Start Time Stop Time Status Last Admin Dose Admin Sodium Chloride 10 ml Q8HR IV 03/15/25 06:00 03/16/25 06:27 10 ML Apixaban 5 mg BID PO 03/15/25 10:00 03/16/25 10:14 5 MG Carvedilol 12.5 mg Q12HR PO 03/15/25 10:00 03/15/25 10:36 12.5 MG Empaglifozin 10 mg DAILY PO 03/15/25 10:00 03/16/25 10:14 10 MG Famotidine 20 mg DAILY PO 03/15/25 10:00 03/16/25 10:14 20 MG Nifedipine 90 mg DAILY PO 03/15/25 10:00 03/15/25 10:37 90 MG Furosemide 60 mg BIDD IV 03/15/25 06:00 03/15/25 17:53 60 MG Laboratory Results Laboratory Tests 03/15/25 05:55 Microbiology Microbiology Date/Time Source Procedure Growth Status 03/15/25 01:32 Nose MRSA Screen - Final Complete Assessment/Plan Assessment/Plan Continue current medical treatment including diuretics as he is on. Once again counseled regarding fluid restriction. Physical therapy evaluation. CHF education. If he remains stable consider discharge home in the morning. Plan discussed with: Patient, Other My Orders Orders - JOSE CABRERA MD Procedure Category Date Status Time Lipid Panel LAB 03/16/25 Logged 12:30 Teach: Heart Failure SHANNAN 03/16/25 In Process 12:30 Problem List: (1) Acute on chronic systolic heart failure (2) Acute respiratory failure (3) Shortness of breath (4) Generalized weakness Date of Service: Mar 16, 2025 Billing Provider: JOSE CABRERA MD Common Visit Codes: [id number] INP/OBS CARE(MOD) JOSE CABRERA MD Mar 16, 2025 13:40
[2025-03-16 14:01] LABS: Triglycerides 74 mg/dL (< 150)
[2025-03-16 14:03] LABS: Cholesterol 98 mg/dL (< 200)
[2025-03-16 14:06] LABS: HDL Cholesterol 27 mg/dL (40-59)
[2025-03-17] VITALS (7 sets, daily range): BP systolic 93–152; BP diastolic 57–84; PULSE 59–92; RESP 16–21; TEMP 37.2; O2SAT 90–100
[2025-03-17] MEDS ORDERED: CARV-216 PO (11:59)
[2025-03-17] MEDS ORDERED: FURO40TA4 PO (11:59)
[2025-03-17] MEDS ORDERED: SPIR25TA8 PO (11:59)
[2025-03-17] MEDS ORDERED: EMPA1TAB PO (11:59)
--- NOTE | 2025-03-17 12:04 | DVHDS2 ---
Discharge Summary Date of Admission Mar 14, 2025 at 22:19 Date of Discharge: Mar 17, 2025 Labs/Diagnostic Data: Laboratory Results Test 03/16/25 13:34 03/15/25 05:55 03/15/25 05:31 03/14/25 20:47 Triglycerides Level 74 mg/dL (< 150) Cholesterol Level 98 mg/dL (< 200) LDL Cholesterol 59 mg/dL (< 100) HDL Cholesterol 27 mg/dL (40-59) White Blood Count 5.4 10^3/uL (4.4-10.8) Red Blood Count 4.89 10^6/uL (4.5-5.90) Hemoglobin 13.1 g/dL (13.5-17.5) Hematocrit 41.1 % (41.0-53.0) Mean Corpuscular Volume 84.2 fL (80.0-100.0) Mean Corpuscular Hemoglobin 26.9 pg (28.0-32.0) Mean Corpuscular Hemoglobin Concent 31.9 g/dL (32.0-36.0) Red Cell Distribution Width 18.9 % (11.8-14.3) Platelet Count 128 10^3/uL (140-450) Mean Platelet Volume 8.9 fL (6.9-10.8) Neutrophils (%) (Auto) 64.4 % (37.0-80.0) Lymphocytes (%) (Auto) 24.0 % (10.0-50.0) Monocytes (%) (Auto) 10.4 % (0.0-12.0) Eosinophils (%) (Auto) 0.6 % (0.0-7.0) Basophils (%) (Auto) 0.6 % (0.0-2.0) Neutrophils # (Auto) 3.5 10 ^3/uL (1.6-8.6) Lymphocytes # (Auto) 1.3 10 ^3/uL (0.4-5.4) Monocytes # (Auto) 0.6 10 ^3/uL (0-1.3) Eosinophils # (Auto) 0 10 ^3/uL (0-0.8) Basophils # (Auto) 0 10 ^3/uL (0-0.2) Nucleated Red Blood Cells 0.3 % Sodium Level 151 mmol/L (136-145) Potassium Level 4.0 mmol/L (3.5-5.1) Chloride Level 112 mmol/L (98-107) Carbon Dioxide Level 29 mmol/L (20-31) Anion Gap 10 (5-15) Blood Urea Nitrogen 35 mg/dL (9-23) Creatinine 1.92 mg/dL (0.700-1.30) Glomerular Filtration Rate Calc 39 mL/min (>90) BUN/Creatinine Ratio 18.2 (10.0-20.0) Serum Glucose 100 mg/dL (74-106) Hemoglobin A1c 6.6 % A1C (<5.7) Calcium Level 9.6 mg/dL (8.7-10.4) Total Bilirubin 1.2 mg/dL (0.2-1.0) Aspartate Amino Transferase (AST) 20 U/L (13-40) Alanine Aminotransferase (ALT) 21 U/L (7-40) Alkaline Phosphatase 98 U/L (46-116) Total Protein 6.4 g/dL (5.7-8.2) Albumin 3.6 g/dL (3.2-4.8) Vitamin B12 Level 471 pg/mL (211-911) Vitamin D 25-Hydroxy 51.8 ng/mL (30.0-100) Folic Acid 10.66 ng/mL (>5.38) Plasma/Serum Blood Alcohol < 3.0 mg/dL (<10) POC Glucose 96 mg/dl (70-106) Phosphorus Level 3.9 mg/dL (2.4-5.1) Magnesium Level 2.4 mg/dL (1.6-2.6) Troponin I High Sensitivity 49 ng/L (</=54) Test 03/14/25 17:47 B-Type Natriuretic Peptide > 5000.00 pg/mL (0-100) Other Laboratory Tests 03/15/25 05:55 Brief Hx & Hospital Course: Patient is 59 years old male with a past medical history of hypertension, diabetes mellitus type 2, HFrEF, LVEF 10-15%, CKD stage III came with a complaint of worsening bilateral leg swelling. Patient was recently discharged from [facility] last week and following that patient is leg swelling was getting worse, patient reported he did not have his Lasix for last couple of days. Patient denied any acute chest pain or worsening shortness of breaths, diarrhea, dysuria, dysarthria, palpitation, cough or change in vision. At ER patient was tachycardic, tachypneic. Initial lab workup revealed troponin I-54> 50>49, BNP> 5000, platelet 136, sodium 149, serum creatinine 1.81, BUN 38, bilirubin 1.3, AST/ALT within normal limit, alkaline phosphatase 117. CXR- bilateral pulmonary vascular congestion with slight improvement from before. Recent echo 2D on 12/31/2024 revealed LVEF 10-15%, by ventricular and biatrial enlargement, global hypokinesia, RVSP 61 mm of Hg. He is admitted and once again he is counseled and educated about strict compliance with the cardiac medications, low-salt diet, oral fluid restriction to less than 1.5 L a day. Patient is advised to check his weight and if he gains more than 3-4 lb in a week to increase his water pill at home. He is advised to have a close follow up with his primary care physician and circular saw operator to further manage his end-stage heart failure with a cardiomyopathy. Otherwise while in the hospital patient received IV diuretics and diuresed well. Leg swelling has improved. Shortness for breath has improved. Therefore it is felt he could be safely discharged home. I have talked with the patient and his family members at bedside regarding his hospital diagnosis, treatment he received, discharge medications, discharge instructions and follow-up plan of care. They have verbalized understanding of these and agree with the care plan as outlined. Condition at Discharge: Stable Final Diagnosis/Problems List chf, cardiomyopathy,мария, ckd2, morbid obesity BMI 30 Discharge Disposition: Home Discharge Instruct/Medications Diet: Consistent carbohydrate, Cardiac 2g Na,low cholest Diet comment: Restrict your oral fluid intake to 1 L referral 1.5 L daily. Activity: No Restrictions, As Tolerated Follow Up/Referral: Primary care physician after two weeks for heart failure management and circular saw operator 3-4 weeks for heart failure management and cardiomyopathy Medications: Take Lasix and other heart medications as prescribed. Scheduled Apixaban Base (Eliquis), 1 TAB PO BID, (Reported) Carvedilol (Coreg), 12.5 MG PO BID Empagliflozin (Jardiance), 1 TAB PO DAILY Famotidine (Pepcid Tablet), 1 TAB PO DAILY, (Reported) Furosemide (Furosemide), 40 MG PO BID Irbesartan-Hydrochlorothiazide (Irbesartan/Hydrochlorothi 150-12.5 mg), 1 TAB PO DAILY, (Reported) Nifedipine (Nifedipine Er), 1 TAB PO DAILY, (Reported) Spironolactone (Spironolactone), 0.5 TAB PO DAILY Discontinued Medications Doxycycline Monohydrate (Doxycycline Monohydrate), 100 MG PO Q12HR Torsemide Injection (Torsemide), 0.5 TAB PO DAILY, (Reported) Discharge Statement: "Patient was advised to return to the ER or call 911 if any headaches, dizziness, shortness of breath, chest pain, abdominal pain, bleeding, fevers, or worsening of medical condition. Patient was counseled about treatment plan, medications, possible side effects, patientverbalized understanding. All questions were answered to the best of my ability. This discharge took greater then 30 minutes in planning, reviewing documentation, counseling the patient, and discussing with other team members." ASSESSMENT ASSESSMENT Assessment chf, cardiomyopathy,мария, ckd2 Date of Service: Mar 17, 2025 Billing Provider: JOSE CABRERA MD Common Visit Codes: 81136-RPT/OBS DISCH DAY >30min JOSE CABRERA MD Mar 17, 2025 12:03
== END 2025-03-17 18:35 | disposition home or self-care (01) | DRG 194 ==
LOC: ER 15:38 → OVERFLOW 22:19 → TELE-WESTW 22:22
PROVIDERS: ADMIT Hospitalist; ATTEND Hospitalist
DX: I13.0 Hypertensive heart and chronic kidney disease with heart failure and stage 1 through stage 4 chronic kidney disease, or unspecified chronic kidney disease (principal); N17.0 Acute kidney failure with tubular necrosis; D69.6 Thrombocytopenia, unspecified; I27.20 Pulmonary hypertension, unspecified; I50.23 Acute on chronic systolic (congestive) heart failure; E11.22 Type 2 diabetes mellitus with diabetic chronic kidney disease; I42.9 Cardiomyopathy, unspecified; F10.20 Alcohol dependence, uncomplicated; E66.01 Morbid (severe) obesity due to excess calories; Z68.30 Body mass index [BMI] 30.0-30.9, adult; I50.84 End stage heart failure; N18.30 Chronic kidney disease, stage 3 unspecified; F17.210 Nicotine dependence, cigarettes, uncomplicated; Z82.49 Family history of ischemic heart disease and other diseases of the circulatory system; Z79.899 Other long term (current) drug therapy; Z79.84 Long term (current) use of oral hypoglycemic drugs; Z79.4 Long term (current) use of insulin
CPT/HCPCS: 36415; 71045; 80053; 80061; 80320; 82306; 82607; 82746; 82962; 83036; 83735; 83880; 84100; 84484; 85025; 87081; 96372; 96374; G0378

== ENCOUNTER 2025-04-07 11:52 | Inpatient (IN) | payer MEDICAID ==
[~2025-04-07] VITALS: Ht 198.1 cm; Wt 147.9 kg
[~2025-04-07 11:52] MED LIST changes: -DOX100T PO; -TORS20TA19 PO
--- NOTE | 2025-04-07 12:41 | ED.PDOC ---
HPI Comments This is a 60 year old male KIRK presenting to the ED with chief complaint of leg swelling. Patient reports that he has been experiencing bilateral leg swelling with associated SOB for the past 2 hours. Patient relays that his skin is now cracking in his legs. Patient denies any chest pain, dizziness, headache, nausea, vomiting, or weakness. Chief Complaint: General Weakness Time Seen by MD: 12:35 Primary Care Provider: HERI JENSEN Reviewed Notes: Nurses Notes, Electric Screw Driver Operator Notes, Medications, Allergies Allergies: Coded Allergies: NO KNOWN ALLERGIES (Unverified , 12/31/24) Home Meds Active Scripts Furosemide (Furosemide) 40 Mg Tab, 40 MG PO BID for 10 Days, #90 TAB Prov:JOSE CABRERA MD 03/17/25 Carvedilol (COREG) 12.5 Mg Tab, 12.5 MG PO BID, #60 TAB Prov:JOSE CABRERA MD 03/17/25 Spironolactone (Spironolactone) 25 Mg Tab, 0.5 TAB PO DAILY for 30 Days, #15 TAB Prov:JOSE CABRERA MD 03/17/25 Empagliflozin (Jardiance) 10 Mg Tab, 1 TAB PO DAILY for 30 Days, #30 TAB Prov:JOSE CABRERA MD 03/17/25 Reported Medications Nifedipine (Nifedipine Er) 90 Mg Tab, 1 TAB PO DAILY for 90 Days, #90 03/05/25 Irbesartan-Hydrochlorothiazide (Irbesartan/Hydrochlorothi 150-12.5 mg) 1 Tab Tab, 1 TAB PO DAILY for 90 Days, #90 [IRBESARTAN-HYDROCHLOROTHIAZIDE 300-12.5 MG] 03/05/25 Apixaban Base (ELIQUIS) 5 Mg Tab, 1 TAB PO BID for 30 Days, #60 03/05/25 Famotidine (PEPCID TABLET) 20 Mg Tb, 1 TAB PO DAILY for 30 Days, #30 03/05/25 Information Source: Patient, Emergency Med Personnel Mode of Arrival: EMS Severity: Moderate Timing: Hours Duration: Since onset Prehospital treatment: None Onset: At Rest Cardiac Risk Factors: HTN PE Risk Factors: None Associated Signs and Symptoms: SOB, Calf Swelling Past Medical History PAST MEDICAL HISTORY: CHF, DM, HTN Surgical History: Denies all surgeries Family History Family History: Reviewed,noncontributory to illness, No family hx of Cancer, No family hx of DM, No family hx of Heart ameena, No family hx of HTN, No family hx ofKidney ameena, No family hx of Liver ameena, No family hx of Lung ameena, No family hx of Stroke Social History Smoker: Cigarettes Alcohol: Occasionally Drugs: Denies Drug Use Lives In: Home Constitutional: denies: chills, diaphoresis, fatigue, fever, malaise, sweats, weakness, others EENTM: denies: blurred vision, double vision, ear bleeding, ear discharge, ear drainage, ear pain, ear ringing, eye pain, eye redness, hearing loss, mouth pain, mouth swelling, nasal discharge, nose bleeding, nose congestion, nose pain, photophobia, tearing, throat pain, throat swelling, voice changes, others Respiratory: reports: shortness of breath; denies: cough, hemoptysis, orthopnea, SOB at rest, SOB with excertion, stridor, wheezing, others Cardiovascular: reports: edema; denies: chest pain, dizzy spells, diaphoresis, Dyspnea on exertion, irregular heart beat, left arm pain, lightheadedness, palpitations, PND, syncope, others Gastrointestinal: denies: abdomen distended, abdominal pain, blood streaked bowels, constipated, diarrhea, dysphagia, difficulty swallowing, hematemesis, melena, nausea, poor appetite, poor fluid intake, rectal bleeding, rectal pain, vomiting, others Genitourinary: denies: burning, dysuria, flank pain, frequency, hematuria, incontinence, penile discharge, penile sore, pain, testicle pain, testicle swelling, urgency, others Neurological: denies: dizziness, fainting, headache, left sided numbness, left sided weakness, numbness, paresthesia, pre-existing deficit, right sided numbness, right sided weakness, seizure, speech problems, tingling, tremors, weakness, others Musculoskeletal: denies: back pain, gout, joint pain, joint swelling, muscle pain, muscle stiffness, neck pain, others Integumetry: denies: bruises, change in color, change in hair/nails, dryness, laceration, lesions, lumps, rash, wounds, others Allergic/Immunocompromised: denies: Difficulty Healing, Frequent Infections, Hives, Itching, others Hematologic/Lymphatic: denies: anemia, blood clots, easy bleeding, easy bruising, swollen glands, others Endocrine: denies: excessive hunger, excessive sweating, excessive thirst, excessive urination, flushing, intolerance to cold, intolerance to heat, unexplained weight gain, unexplained weight loss, others Psychiatric: denies: anxiety, bipolar disorder, depression, hopeless, panic disorder, schizophrenia, sleepless, suicidal, others All Other Systems: Reviewed and Negative Physical Exam General Appearance: Moderate Distress, Normal HEENT: Normal ENT Inspection, Pharynx Normal, TMs Normal Neck: Full Range of Motion, Non-Tender, Normal, Normal Inspection Respiratory: Chest Non-Tender, Lungs Clear, No Accessory Muscle Use, No Respiratory Distress, Normal Breath Sounds Cardiovascular: No Edema, No JVD, No Murmur, No Gallop, Normal Peripheral Pulses, Regular Rate/Rhythm Breast Exam: Deferred Gastrointestinal: No Organomegaly, Non Tender, No Pulsatile Mass, Normal Bowel Sounds, Soft Genitalia: Deferred Pelvic: Deferred Rectal: Deferred Extremities: No calf tenderness, Normal capillary refill, Normal range of motion, Non-tender, Pedal edema, Swelling (Bilateral lower extremity) Musculoskeletal : Apperance: Normal Neurologic: Alert, concrete carpenter II-XII nml as Tested, No Motor Deficits, Normal Affect, Normal Mood, No Sensory Deficits Cerebellar Function: NOT DONE Reflexes: NOT DONE Skin: Dry, Normal Color, Warm Peripheral Pulses: 3+ Radial (R), 3+ Radial (L) Lymphatic: No Adenopathy EKG EKG : Pulse Rate (adult): 62 [place]: Normal Cardiac Rhythm: NSR Block: None Hypertrophy: None ST: Normal Was a procedure done? Was a procedure done?: No CP Differential Dx Differential Diagnosis: A-fib, A-Flutter, Angina, Anxiety / Panic Attack, Atrial Dysrhythmia, Electrolyte Disorder X-Ray, Labs, Meds, VS Vital Signs Date Time Temp Pulse Resp B/P (MAP) Pulse Ox O2 Delivery O2 Flow Rate FiO2 04/07/25 15:06 93 18 129/69 (89) 96 04/07/25 12:41 62 04/07/25 11:58 90 04/07/25 11:55 97.7 86 20 145/113 99 97.7 Lab Test 04/07/25 13:46 04/07/25 12:47 Range/Units B-Type Natriuretic Peptide 4522.26 0-100 pg/mL White Blood Count 11.6 H 4.4-10.8 10^3/uL Red Blood Count 5.94 H 4.5-5.90 10^6/uL Hemoglobin 15.5 13.5-17.5 g/dL Hematocrit 51.1 41.0-53.0 % Mean Corpuscular Volume 86.1 80.0-100.0 fL Mean Corpuscular Hemoglobin 26.0 L 28.0-32.0 pg Mean Corpuscular Hemoglobin Concent 30.2 L 32.0-36.0 g/dL Red Cell Distribution Width 19.5 H 11.8-14.3 % Platelet Count 211 140-450 10^3/uL Mean Platelet Volume 9.4 6.9-10.8 fL Neutrophils (%) (Auto) 76.5 37.0-80.0 % Lymphocytes (%) (Auto) 10.1 10.0-50.0 % Monocytes (%) (Auto) 13.1 H 0.0-12.0 % Eosinophils (%) (Auto) 0.1 0.0-7.0 % Basophils (%) (Auto) 0.2 0.0-2.0 % Neutrophils # (Auto) 8.9 H 1.6-8.6 10 ^3/uL Lymphocytes # (Auto) 1.2 0.4-5.4 10 ^3/uL Monocytes # (Auto) 1.5 H 0-1.3 10 ^3/uL Eosinophils # (Auto) 0 0-0.8 10 ^3/uL Basophils # (Auto) 0 0-0.2 10 ^3/uL Nucleated Red Blood Cells 0.1 % Sodium Level 143 136-145 mmol/L Potassium Level 5.8 *H 3.5-5.1 mmol/L Chloride Level 112 H 98-107 mmol/L Carbon Dioxide Level 18 L 20-31 mmol/L Anion Gap 13 5-15 Blood Urea Nitrogen 25 H 9-23 mg/dL Creatinine 1.57 H 0.700-1.30 mg/dL Glomerular Filtration Rate Calc 50 >90 mL/min BUN/Creatinine Ratio 15.9 10.0-20.0 Serum Glucose 114 H 74-106 mg/dL Calcium Level 9.1 8.7-10.4 mg/dL Troponin I High Sensitivity 35 </=54 ng/L Patient alert. Complaining of bilateral lower extremity swelling. BNP elevated. WBC elevated. Was given Lasix. Possible sepsis. We can not give fluids because of CHF. Potassium elevated. Hyperkalemia treatment. Was given Rocephin. Was given azithromycin. He does not take care himself. Explained to the patient. Continue to monitor. Time of 1ST Reevaluation: 13:34 Reevaluation 1ST: Unchanged Patient Education/Counseling: Diagnosis, Treatment Family Education/Counseling: No Family Present SEPSIS Sepsis Screen Date sepsis recognized/suspect: Apr 07, 2025 Time Sepsis recognized/suspect: 115 Recent Procedure: No On Antibiotic Therapy: No Respiratory Rate >20: No Heart Rate >90: No Temp<36 C (96.8 F) or >38.3 C: No SBP <90 or MAP <65 mmHG: No New Acute Mental Status Change: No Is the patient on CPAP, BIPAP,: No Physician Orders Chest Portable (04/07/25 12:20) Urinalysis (04/07/25 12:20) Electrocardigram (04/07/25 13:08) Potassium (04/07/25 20:24) Insulin R (Human) (Insulin R) (04/07/25 16:30) Dextrose 50% Syringe (04/07/25 16:30) Albuterol Medneb (Ventolin Medneb) (04/07/25 16:30) Sodium Bicarb 50meq/50ml Syr (04/07/25 16:30) Furosemide Injection (Lasix Injection) (04/07/25 16:30) Calcium Gluc 1,000mg/50ml-Ns (04/07/25 16:30) Sodium Zirconium Cyclosilicate (Lokelma) (04/07/25 16:30) Ceftriaxone 1gm/50ml D5w (Rocephin) (04/07/25 16:30) Azithromycin 500mg/ 250ml (Zithromax 50 (04/07/25 16:30) Blood Culture (04/07/25 16:24) Lactic Acid W/ Reflex Order (04/07/25 16:24) Vital Signs Date Time Temp Pulse Resp B/P (MAP) Pulse Ox O2 Delivery O2 Flow Rate FiO2 04/07/25 15:06 93 18 129/69 (89) 96 04/07/25 12:41 62 04/07/25 11:58 90 04/07/25 11:55 97.7 86 20 145/113 99 97.7 Laboratory Tests Test 04/07/25 12:47 White Blood Count 11.6 10^3/uL (4.4-10.8) H Departure 1 Departure Time of Disposition: 16:29 Impression: Primary Impression: CHF (congestive heart failure) Qualified Codes: I50.43 - Acute on chronic combined systolic (congestive) and diastolic (congestive) heart failure Additional Impression: Hyperkalemia Disposition: ADMITTED INPATIENT Admit to: Med Surg Condition: Guarded Critical Care Note Critical Care Time?: Yes (90 min-critical care time only) Stability Stability form required: No Heart Score Heart Score: Heart Score Response (Comments) Value History Moderate Suspicious 1 EKG Normal 0 Age 45-64 1 Risk Factors >3 or Hx ASHD 2 Troponin Normal limit 0 Total 4 I personally scribed for AYLA ENRIQUEZ MD ([email or web address]) on 04/07/25 at 12:41. Electronically submitted by Marlon Trent ([email or web address]). AYLA ENRIQUEZ MD Apr 07, 2025 12:41
[2025-04-07 13:01] LABS: Hematocrit 51.1 % (41.0-53.0); Hemoglobin 15.5 g/dL (13.5-17.5); Mean Corpuscular Hemoglobin 26.0 pg (28.0-32.0); Mean Corpuscular Volume 86.1 fL (80.0-100.0); Nucleated Red Blood Cells % 0.1 %
[2025-04-07 13:17] LABS: Sodium 143 mmol/L (136-145)
[2025-04-07 13:18] LABS: Anion Gap 13 (5-15)
[2025-04-07 13:19] LABS: Calcium 9.1 mg/dL (8.7-10.4)
[2025-04-07 13:23] LABS: BUN/Creatinine Ratio 15.9 (10.0-20.0)
[2025-04-07 13:24] LABS: Chloride 112 mmol/L (98-107)
[2025-04-07 13:25] LABS: Blood Urea Nitrogen 25 mg/dL (9-23); Carbon Dioxide 18 mmol/L (20-31); Glucose 114 mg/dL (74-106)
[2025-04-07 13:28] LABS: Potassium 5.8 mmol/L (3.5-5.1)
[2025-04-07] MEDS: ALBUTEROL SULF 2.5 MG/0.5ML(0.5%) NEB SOLN NEB ONE (16:43)
--- NOTE | 2025-04-07 16:51 | DVH ---
CHEST RADIOGRAPH Indication: sob Technique: Single frontal view of the chest was obtained Comparison: XY CHEST PORTABLE on DOS: 03/14/25, XY CHEST PORTABLE on DOS: 03/04/25, XY CHEST PORTABLE on DOS: 03/03/25 FINDINGS: Lines and Tubes: None Lungs: Bibasilar airspace disease. Pleura: No effusion. No pneumothorax. Cardiomediastinal contours: Cardiomegaly Bones: No acute osseous abnormality. IMPRESSION: 1. Cardiomegaly with bibasilar airspace disease. Findings consistent with congestive failure or pneum onia.
[2025-04-07 17:24] LABS: Lactic Acid w/Reflex 3.7 mmol/L (0.4-2.0)
--- NOTE | 2025-04-07 18:48 | ECG ---
[facility] Test Date: 2025-04-07 Test Time: 11:58:40 Pat Name: CHRIS DUPONT Department: ED Room: [address] [place] [address] Gender: M Credit Controller: jarvis : 1965 Requested By: AYLA ENRIQUEZ Order Number: [id number] Reading MD: Radames Zimmer Measurements Intervals [place] Rate: 90 P: 42 TX: 162 QRS: -54 QRSD: 115 T: 102 QT: 412 QTc: 504 Interpretive Statements Sinus rhythm Left anterior fascicular block Probable left ventricular hypertrophy Nonspecific T abnormalities, lateral leads Electronically Signed On 04-07-2025 22:11:19 PDT by Radames Zimmer Please click the below link to view image of tracing.
[2025-04-07] MEDS ORDERED: MORPHINE SULFATE INJ 2 MG/ml SYRG IV PRN (19:30)
[2025-04-07] MEDS ORDERED: ONDANSETRON HCL 4 MG/2 ML VIAL IV PRN (19:30)
[2025-04-07] MEDS ORDERED: NITROGLYCERIN 0.4 MG SL TAB SL PRN (19:30)
[2025-04-07] MEDS ORDERED: ACETAMINOPHEN 325 MG TAB PO PRN (19:30)
[2025-04-07 21:20] VITALS: PULSE 96; RESP 21
[2025-04-07] MEDS: CALCIUM GLUC 1,000mg/50ml-NS 50 ML IV ONE (21:26)
[2025-04-07] MEDS: DEXTROSE (50%) 50ML SYRG IV ONE (21:26)
[2025-04-07] MEDS: SODIUM ZIRCONIUM CYCL 10 GM PAK PO ONE (21:27)
[2025-04-07] MEDS: SODIUM BICARB 8.4% 50Meq/50ml SYR INJ IV ONE (21:28)
[2025-04-07] MEDS: InsuLIN REG 1unit/0.01ml Soln (100units/ml) IV ONE (21:30)
[2025-04-07] MEDS: cefTRIAXone 1GM/50ML D5W 50 ML IV ONE (21:31)
[2025-04-07 22:00] VITALS: BP 114/83; PULSE 44; RESP 18; TEMP 98; O2SAT 100
[2025-04-07 22:30] VITALS: PULSE 44; RESP 18; O2SAT 100
--- NOTE | 2025-04-07 23:13 | DVHHP2 ---
History of Present Illness Reason for Visit: Lower extremity swelling History of Present Illness 60-year-old male presents for evaluation of lower extremity swelling. Patient reports a one day history of bilateral lower extremity swelling with associated shortness for breath. Reports mild chest pressure. No cough or fever. No other acute complaints. Past Medical History Hypertension, diabetes mellitus, CHF Past Surgical History Denies Family History Noncontributory Smoke: No ALCOHOL: none Drugs: None Lives: with Family Review of Systems Review of Systems Review of systems are currently negative otherwise addressed in HPI. Allergies: Coded Allergies: NO KNOWN ALLERGIES (Unverified , 12/31/24) Medications Current Medications Medications Dose Ordered Sig/Aayush Route Start Time Stop Time Status Last Admin Dose Admin Nitroglycerin 0.4 mg Q5MINP PRN SL 04/07/25 19:30 Morphine Sulfate 2 mg Q30M PRN IV 04/07/25 19:30 Ceftriaxone Sodium 50 ml @ 100 mls/hr DAILY@09 IV 04/08/25 09:00 Azithromycin 250 ml @ 125 mls/hr DAILY IV 04/08/25 10:00 Furosemide 20 mg BIDD IV 04/08/25 06:00 Apixaban 5 mg BID PO 04/07/25 22:00 Carvedilol 12.5 mg Q12HR PO 04/07/25 22:00 Empaglifozin 10 mg DAILY PO 04/08/25 10:00 Nifedipine 90 mg DAILY PO 04/08/25 10:00 Spironolactone 12.5 mg DAILY PO 04/08/25 10:00 Ondansetron HCl 4 mg Q4HP PRN IV 04/07/25 19:30 UNV Acetaminophen 650 mg Q6HP PRN PO 04/07/25 19:30 Exam Vital Signs Vital Signs Date Time Temp Pulse Resp B/P (MAP) Pulse Ox O2 Delivery O2 Flow Rate FiO2 04/07/25 21:20 98.8 96 21 123/75 (91) 98.8 04/07/25 21:20 Room Air* 0 21 04/07/25 16:47 97 Exam Gen: 60-year-old male in mild distress Skin: Warm, dry, normal color and texture, no rash. HEENT: Normocephalic atraumatic, mucous membranes moist and pink. Neck: Cervical and supraclavicular nodes normal without enlargement, trachea is midline, thyroid gland is normal without masses. Pulmonary: Clear to auscultation and percussion bilaterally. Cardiac: Regular rate and rhythm. No murmur Abdomen: Soft, nontender, nondistended, bowel sounds present all 4 quadrants, no guarding, no rigidity, no organomegaly. Extremities: No cyanosis, clubbing, no edema Neuro: Cranial nerves II through XII grossly intact, normal affect and speech, no focal motor deficits. Labs/Xrays ORDERING PHYSICIAN: MACIE DAVID PROCEDURE(s): ECIDC - ECHO 2D MODE CARDIAC DOP REASON: CHF ORDER NUMBER(s): [id number], ACCESSION NUMBER(s): [id number] APPROVED REPORT EXAM: Two-dimensional and M-mode echocardiogram with Doppler and color Doppler. Blood Pressure: 162/97 mmHg INDICATION CHF RISK FACTORS Obesity: Height: 6'6", Weight: 318 DIMENSIONS LVDd 6.2 (3.8-5.7cm) LA (2D) 4.4 (1.9-4.0cm) Aortic Root 3.6 (2.0- 3.7cm) LVDs 5.7 (2.5-4.0cm) LA (MM) (1.9-4.0cm) Aortic Cusp Exc 1.9 (1.5- 2.0cm) EF (%) 16.0 (55-70%) Rt. Atrium 4.8 (1.9-4.0cm) Asc. Aorta cm IVSd 1.3 (0.7-1.1cm) RV (D) 4.4 (1.8-2.4cm) PWd 1.3 (0.7-1.1cm) Mitral Valve Mitral Mitral Stenosis E wave 1.16m/s MV Mean GR. mmHg A wave 0.60m/s MV Peak GR. mmHg E/A ratio 1.9 2D MVA cm2 DECEL Time 93ms PRESS 1/2 Time ms Aortic Valve Aortic Valve Aortic Stenosis V1 1.02m/s AO Mean GR. 4mmHg V2 1.28m/s AO Peak GR. 7mmHg LVOT Diameter 2.8 (1.8-2.4cm) Doppler YUN 4.90cm2 Pulmonic Valve V2 0.72m/s Tricuspid Valve TR Velocity 3.40m/s RVSP 61mmHg Conclusion Technically good study. Sinus rhythm. Biatrial and biventricular enlargement. Aortic root enlargement. Valves are normal. Left ventricular systolic performance is markedly diminished. EF is approximately 10-15% at best with severe global hypokinesis. Right ventricular function is diminished with a right ventricular ejection fraction of about 40%. Doppler reveals severe tricuspid regurgitation. RVSP of 60 mmHg consistent with severe pulmonary hypertension. Mfyycxec-oe-jzyzyh aortic insufficiency. No pericardial effusion masses or vegetations discernible. ORDERING PHYSICIAN: AYLA ENRIQUEZ MD PROCEDURE(s): CXRP - CHEST PORTABLE REASON: sob ORDER NUMBER(s): [id number], ACCESSION NUMBER(s): [id number] CHEST RADIOGRAPH Indication: sob Technique: Single frontal view of the chest was obtained Comparison: XY CHEST PORTABLE on DOS: 03/14/25, XY CHEST PORTABLE on DOS: 03/04/25, XY CHEST PORTABLE on DOS: 03/03/25 FINDINGS: Lines and Tubes: None Lungs: Bibasilar airspace disease. Pleura: No effusion. No pneumothorax. Cardiomediastinal contours: Cardiomegaly Bones: No acute osseous abnormality. IMPRESSION: 1. Cardiomegaly with bibasilar airspace disease. Findings consistent with congestive failure or pneumonia. Labs Test 04/07/25 21:10 04/07/25 19:10 04/07/25 13:46 04/07/25 12:47 Range/Units POC Glucose 144 H 70-106 mg/dl Potassium Level 5.8 *H 3.5-5.1 mmol/L Lactic Acid Level 4.1 *H 0.4-2.0 mmol/L B-Type Natriuretic Peptide 4522.26 0-100 pg/mL White Blood Count 11.6 H 4.4-10.8 10^3/uL Red Blood Count 5.94 H 4.5-5.90 10^6/uL Hemoglobin 15.5 13.5-17.5 g/dL Hematocrit 51.1 41.0-53.0 % Mean Corpuscular Volume 86.1 80.0-100.0 fL Mean Corpuscular Hemoglobin 26.0 L 28.0-32.0 pg Mean Corpuscular Hemoglobin Concent 30.2 L 32.0-36.0 g/dL Red Cell Distribution Width 19.5 H 11.8-14.3 % Platelet Count 211 140-450 10^3/uL Mean Platelet Volume 9.4 6.9-10.8 fL Neutrophils (%) (Auto) 76.5 37.0-80.0 % Lymphocytes (%) (Auto) 10.1 10.0-50.0 % Monocytes (%) (Auto) 13.1 H 0.0-12.0 % Eosinophils (%) (Auto) 0.1 0.0-7.0 % Basophils (%) (Auto) 0.2 0.0-2.0 % Neutrophils # (Auto) 8.9 H 1.6-8.6 10 ^3/uL Lymphocytes # (Auto) 1.2 0.4-5.4 10 ^3/uL Monocytes # (Auto) 1.5 H 0-1.3 10 ^3/uL Eosinophils # (Auto) 0 0-0.8 10 ^3/uL Basophils # (Auto) 0 0-0.2 10 ^3/uL Nucleated Red Blood Cells 0.1 % Sodium Level 143 136-145 mmol/L Chloride Level 112 H 98-107 mmol/L Carbon Dioxide Level 18 L 20-31 mmol/L Anion Gap 13 5-15 Blood Urea Nitrogen 25 H 9-23 mg/dL Creatinine 1.57 H 0.700-1.30 mg/dL Glomerular Filtration Rate Calc 50 >90 mL/min BUN/Creatinine Ratio 15.9 10.0-20.0 Serum Glucose 114 H 74-106 mg/dL Calcium Level 9.1 8.7-10.4 mg/dL Troponin I High Sensitivity 35 </=54 ng/L SEPSIS Sepsis Screen Date sepsis recognized/suspect: Apr 07, 2025 Time Sepsis recognized/suspect: 1151 Recent Procedure: No On Antibiotic Therapy: No Respiratory Rate >20: No Heart Rate >90: No Temp<36 C (96.8 F) or >38.3 C: No SBP <90 or MAP <65 mmHG: No New Acute Mental Status Change: No Is the patient on CPAP, BIPAP,: No Physician Orders Blood Culture (04/07/25 16:24) Admit (04/07/25 19:21) Nitroglycerin Sublingual (Ntrostat Subli (04/07/25 19:30) Morphine Sulfate Injection (04/07/25 19:30) Stat Ekg For Chest Pain (04/07/25 19:21) Notify Md Of Changes From Base (04/07/25 19:21) Audio Visual Facilities Engineer For 24 Hours (04/07/25 19:21) Emergency Dysrhythmia Protocol (04/07/25 19:21) Rhythm Strips Once Every Shift (04/07/25 19:21) Oxygen By Nasal Cannula (04/07/25 19:21) Ceftriaxone 1gm/50ml D5w (Rocephin) (04/08/25 09:00) Azithromycin 500mg/ 250ml (Zithromax 50 (04/08/25 10:00) Furosemide Injection (Lasix Injection) (04/08/25 06:00) Apixaban (Eliquis) (04/07/25 22:00) Carvedilol Tablet (Coreg Tablet) (04/07/25 22:00) Empagliflozin (Jardiance) (04/08/25 10:00) Nifedipine Er (Procardia Xl (Time-Releas (04/08/25 10:00) Spironolactone (Aldactone) (04/08/25 10:00) Basic Metabolic Panel (04/08/25 04:00) Renal Standard(2gna,3gk,Lopho) (04/08/25 Breakfast) Ondansetron Hcl (Zofran) (04/07/25 19:30) Complete Blood Count (04/08/25 04:00) Cardiac Diet-2gna,Lofat,Lochol (04/08/25 Breakfast) Condition: Fair (04/07/25 19:24) Acetaminophen Tablet (Tylenol Tablet) (04/07/25 19:30) Bedrest With Bathroom Privileg (04/07/25 19:24) Vital Signs Date Time Temp Pulse Resp B/P (MAP) Pulse Ox O2 Delivery O2 Flow Rate FiO2 04/07/25 21:20 98.8 96 21 123/75 (91) 98.8 04/07/25 21:20 96 21 Room Air* 0 21 04/07/25 16:47 16 97 Room Air* 0 21 Laboratory Tests Test 04/07/25 12:47 04/07/25 16:45 04/07/25 19:10 White Blood Count 11.6 10^3/uL (4.4-10.8) H Lactic Acid Level 3.7 mmol/L (0.4-2.0) *H 4.1 mmol/L (0.4-2.0) *H Medications Medications Dose Ordered Sig/Aayush Route Start Time Stop Time Status Last Admin Dose Admin Albuterol 20 mg ONCE ONCE NEB 04/07/25 16:30 04/07/25 16:31 DC 04/07/25 16:43 20 MG Calcium Gluconate/ Sodium Chloride 50 ml @ 120 mls/hr ONCE ONCE IV 04/07/25 16:30 04/07/25 16:54 DC 04/07/25 21:26 120 MLS/HR Ceftriaxone Sodium 50 ml @ 100 mls/hr ONCE ONCE IV 04/07/25 16:30 04/07/25 16:59 DC 04/07/25 21:31 100 MLS/HR Dextrose 50 ml ONCE ONCE IV 04/07/25 16:30 04/07/25 16:31 DC 04/07/25 21:26 50 ML Insulin Human Regular 10 units ONCE ONCE IV 04/07/25 16:30 04/07/25 16:31 DC 04/07/25 21:30 10 UNITS Sodium Bicarbonate 50 ml ONCE ONCE IV 04/07/25 16:30 04/07/25 16:31 DC 04/07/25 21:28 50 ML Zirconium Oxide 10 gm ONCE ONCE PO 04/07/25 16:30 04/07/25 16:31 DC 04/07/25 21:27 10 GM Assessment/Plan Assessment/Plan Assessment Acute on chronic congestive heart failure Questionable pneumonia Hyperkalemia Chronic kidney disease Plan Admit the patient to telemetry to the hospitalist IV Lasix Rocephin/azithromycin Resume home medications Continue treatment per orders. Plan discussed with: Patient My Orders Orders - DONAVAN RODRÍGUEZ Procedure Category Date Status Time Admit ADMIT 04/07/25 Transmitted 19:21 Nitroglycerin PHA 04/07/25 In Process Sublingual (Ntrostat 19:30 Morphine Sulfate PHA 04/07/25 In Process Injection 19:30 Stat Ekg For Chest SHANNAN 04/07/25 In Process Pain 19:21 Notify Of Changes SHANNAN 04/07/25 In Process From Base 19:21 Audio Visual Facilities Engineer For [facility] 04/07/25 In Process 24 Hours 19:21 Emergency Dysrhythmia [facility] 04/07/25 In Process Protocol 19:21 Rhythm Strips Once [facility] 04/07/25 In Process Every Shift 19:21 Oxygen By Nasal RT 04/07/25 Transmitted Cannula 19:21 Ceftriaxone 1gm/50ml PHA 04/08/25 In Process D5w (Rocephin) 09:00 Azithromycin 500mg/ PHA 04/08/25 In Process 250ml (Zithromax 50 10:00 Furosemide Injection PHA 04/08/25 In Process (Lasix Injection) 06:00 Apixaban (Eliquis) PHA 04/07/25 In Process 22:00 Carvedilol Tablet PHA 04/07/25 In Process (Coreg Tablet) 22:00 Empagliflozin PHA 04/08/25 In Process (Jardiance) 10:00 Nifedipine Er PHA 04/08/25 In Process (Procardia Xl 10:00 Spironolactone PHA 04/08/25 In Process (Aldactone) 10:00 Basic Metabolic Panel LAB 04/08/25 Verified 04:00 Renal DIET 04/08/25 Transmitted Standard(2gna,3gk,Lopho) Breakfast Ondansetron Hcl PHA 04/07/25 Pending (Zofran) 19:30 Complete Blood Count LAB 04/08/25 Verified 04:00 Cardiac DIET 04/08/25 Transmitted Diet-2gna,Lofat,Lochol Breakfast Condition: Fair SHANNAN 04/07/25 In Process 19:24 Acetaminophen Tablet PHA 04/07/25 In Process (Tylenol Tablet) 19:30 Bedrest With Bathroom SHANNAN 04/07/25 In Process Privileg 19:24 Date of Service: Apr 07, 2025 Billing Provider: DONAVAN RODRÍGUEZ Common Visit Codes: [id number] INP/OBS CARE (HIGH) DONAVAN RODRÍGUEZ Apr 07, 2025 23:13
[2025-04-07] MEDS: APIXABAN 5 MG TAB PO SCH (23:44)
[2025-04-07] MEDS: FUROSEMIDE 20 MG/2 ML VIAL IV ONE (23:44)
[2025-04-07] MEDS: AZITHROMYCIN 500MG/ 250ML 250 ML IV ONE (23:44)
[2025-04-08] VITALS (13 sets, daily range): BP systolic 90–116; BP diastolic 57–80; PULSE 74–105; RESP 17–20; TEMP 96.6–98.4; O2SAT 65–99
[2025-04-08] MEDS: CARVEDILOL 12.5 MG TAB PO SCH (00:42)
[2025-04-08] MEDS: FUROSEMIDE 20 MG/2 ML VIAL IV SCH ×2 (05:40→10:00)
[2025-04-08 06:33] LABS: Hematocrit 45.3 % (41.0-53.0); Hemoglobin 14.9 g/dL (13.5-17.5); Mean Corpuscular Hemoglobin 26.8 pg (28.0-32.0); Mean Corpuscular Volume 81.7 fL (80.0-100.0); Nucleated Red Blood Cells % 0.2 %
[2025-04-08 06:42] LABS: Potassium 5.0 mmol/L (3.5-5.1); Sodium 143 mmol/L (136-145)
[2025-04-08 06:43] LABS: Anion Gap 11 (5-15); Calcium 8.7 mg/dL (8.7-10.4); Carbon Dioxide 20 mmol/L (20-31)
[2025-04-08 06:46] LABS: Chloride 112 mmol/L (98-107)
[2025-04-08 06:48] LABS: BUN/Creatinine Ratio 19.1 (10.0-20.0)
[2025-04-08 06:53] LABS: Blood Urea Nitrogen 31 mg/dL (9-23); Glucose 133 mg/dL (74-106)
[2025-04-08] MEDS ORDERED: InsuLIN REG 1unit/0.01ml Soln (100units/ml) IV ONE (08:15)
[2025-04-08] MEDS ORDERED: ALBUTEROL SULF 2.5 MG/0.5ML(0.5%) NEB SOLN NEB ONE (08:15)
[2025-04-08] MEDS ORDERED: CALCIUM GLUC 1,000mg/50ml-NS 50 ML IV ONE (08:15)
[2025-04-08] MEDS ORDERED: DEXTROSE (50%) 50ML SYRG IV ONE (08:15)
--- NOTE | 2025-04-08 08:34 | DVHPNRES ---
Progress Note Date Seen: Apr 08, 2025 Resident Creating Document: SUZANNE BALDWIN RESIDENT Medical Necessity Reason Pt with a Central, PICC or Fol: No Subjective Review of Systems Cr Peterson is a 60-year-old male with past medical history of HFrEF, HTN, PE, presented to the ER with chief complain of bilateral lower limb swelling, which has lasted for 4 months, has been on and off, worsening since yesterday. He reports being short of breaths when he is talking. Poor historian; He seems confused about the history, further history is obtained by the sister after his consent. The sister reported difficulty breathing, orthopnea urged his visit to ER. She also reported hospitalization last week for similar episode. 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 The sister reported he does not follow with a water manager. She also reported history of a papular wound in the abdominal flap which had a purulent discharge. His at home medications: Eliquis, Jardiance, spironolactone, doxycycline, carvedilol, torsemide, Pepcid, irbesartan hydrochlorothiazide, nifedipine ROS: Constitutional: Denies weight loss, fever and chills. HEENT: Denies changes in vision and hearing. Respiratory: Denies shortness of breath and cough Cardiovascular: Shortness of breaths, orthopnea GI: Denies abdominal pain, nausea, vomiting and diarrhea. : Denies dysuria and urinary frequency. Musculoskeletal: Denies myalgias and joint pain Skin: Denies rash and pruritus. Neurological: Denies dizziness, headache, vision or hearing problems He was examined at bedside today. Vitals show tachycardia, tachypnea. Continues to complain of swelling and feeling of heaviness in bilateral lower extremities. Objective vital signs Vital Sign Date Time Temp Pulse Resp B/P (MAP) Pulse Ox O2 Delivery O2 Flow Rate FiO2 04/08/25 05:40 110/64 04/08/25 05:00 98.2 85 18 93 98.2 04/07/25 22:30 Nasal Cannula* 2 28 Total Intake and Output 04/07/25 04/07/25 04/08/25 15:00 23:00 07:00 Intake Total 460 ml Output Total 200 ml Balance 260 ml medications Current Medications Medications Dose Ordered Sig/Aayush Route Start Time Stop Time Status Last Admin Dose Admin Nitroglycerin 0.4 mg Q5MINP PRN SL 04/07/25 19:30 Morphine Sulfate 2 mg Q30M PRN IV 04/07/25 19:30 Ceftriaxone Sodium 50 ml @ 100 mls/hr DAILY@09 IV 04/08/25 09:00 Azithromycin 250 ml @ 125 mls/hr DAILY IV 04/08/25 10:00 Furosemide 20 mg BIDD IV 04/08/25 06:00 04/08/25 05:40 20 MG Apixaban 5 mg BID PO 04/07/25 22:00 04/07/25 23:44 5 MG Carvedilol 12.5 mg Q12HR PO 04/07/25 22:00 04/08/25 00:42 12.5 MG Empaglifozin 10 mg DAILY PO 04/08/25 10:00 Nifedipine 90 mg DAILY PO 04/08/25 10:00 Spironolactone 12.5 mg DAILY PO 04/08/25 10:00 Ondansetron HCl 4 mg Q4HP PRN IV 04/07/25 19:30 UNV Acetaminophen 650 mg Q6HP PRN PO 04/07/25 19:30 Examination General: Patient alert and oriented in person, place and time. Patient following commands. HEENT: Normocephalic, atraumatic, moist mucous membranes Respiratory/pulmonary: Mild crackles, wheeze on the right lung Cardiovascular: Normal heart sounds S1 and S2 with no associated murmurs Abdomen: Protuberant belly. Abdomen nondistended, there is no pain to palpation in any of the abdominal quadrants, no palpable masses. Extremities: Bilaterally swollen lower extremities with pitting edema grade 3 Skin: Dry, Scaly skin of bilaterally lower extremities Neurological: Intact cranial nerves with no focal neurologic deficits laboratory and microbiology Laboratory Tests 04/08/25 04:59 Test 04/08/25 04:59 Range/Units Serum Glucose 133 H 74-106 mg/dL Problem List/Assessment/Plan Problem List/Assessment/Plan Sepsis due to pneumonia, Gram-negative Gram-positive, possible Lactic acidosis Neutrophilic leukocytosis Tachycardia, tachypnea Continue ceftriaxone, doxycycline Acute exacerbation of chronic HFrEF, with ejection fraction of 10-15% BNP elevated Continue furosemide Blood pressure was on the lower side, holding off spironolactone, empagliflozin, carvedilol, Hyperkalemia, resolved Corrected. Continue to monitor and manage History of Chronic kidney disease History of pulmonary embolism Continues home medication apixaban History of essential hypertension We will continue monitoring and managing DIET: Cardiac DVT PROPHYLAXIS: taking apixaban CODE STATUS: Goals of care discussed with patient at bedside for more than 35 minutes. Full code DISPOSITION: Med/surge Patient's status and plan discussed with the patient. Case discussed with Dr. Guzman. Plan discussed with: Patient Date of Service: Apr 08, 2025 Billing Provider: CAROLINA GUZMAN MD Common Visit Codes: [id number] INP/OBS CARE(HIGH) SUZANNE BALDWIN RESIDENT Apr 08, 2025 08:34 CAROLINA GUZMAN MD Apr 13, 2025 20:01
[2025-04-08] MEDS: cefTRIAXone 1GM/50ML D5W 50 ML IV SCH (09:00)
[2025-04-08] MEDS ORDERED: EMPAGLIFLOZIN 10 MG TAB PO SCH (10:00)
[2025-04-08] MEDS ORDERED: AZITHROMYCIN 500MG/ 250ML 250 ML IV SCH (10:00)
[2025-04-08] MEDS: EMPAGLIFLOZIN 10 MG TAB PO SCH (10:17)
[2025-04-08] MEDS: SPIRONOLACTONE 25 MG TAB PO SCH (10:59)
[2025-04-08] MEDS ORDERED: FUROSEMIDE 20 MG/2 ML VIAL IV SCH (14:15)
[2025-04-08] MEDS: FUROSEMIDE 100 MG/10ML VIAL IV ONE (14:30)
[2025-04-08] MEDS: MORPHINE SULFATE 4 MG/ML SYR/VIAL IV PRN (16:42)
[2025-04-08 20:23] LABS: Lactic Acid w/Reflex 3.3 mmol/L (0.4-2.0)
[2025-04-08] MEDS: DOXYCYCLINE 100 MG TAB/CAP PO SCH (21:59)
[2025-04-09] VITALS (8 sets, daily range): BP systolic 85–155; BP diastolic 45–135; PULSE 73–107; RESP 15–20; TEMP 97.1–98.5; O2SAT 92–97
--- NOTE | 2025-04-09 01:25 | DVH ---
EXAM: XY CHEST PORTABLE DATE OF SERVICE: 04/08/2025 04:56 PM INDICATION: Acute chest pain TECHNIQUE: Single frontal view. COMPARISON: XY CHEST PORTABLE on DOS: 04/07/25, XY CHEST PORTABLE on DOS: 03/14/25, XY CHEST PORTABLE on DOS: 03/04/25, XY CHEST PORTABLE on DOS: 03/03/25, CT CT ANGIO CHEST CONTRAST on DOS: 12/31/24 FINDINGS: [id number] pulmonary edema. Underlying focal consolidation is not excluded. No pleural effusion or pneumothorax. Stable moderate cardiomegaly. Left hilar opacity /adenopathy not excluded. IMPRESSION: 1. Gije-gj-mbvoewbw pulmonary edema. Underlying focal consolidation is not excluded. 2. Stable moderate cardiomegaly. 3. Left hilar opacity /adenopathy not excluded.
[2025-04-09 06:18] LABS: COVID19 ANTIGEN SOFIA FIA NEGATIVE (NEGATIVE)
[2025-04-09] MEDS: FUROSEMIDE 100 MG/10ML VIAL IV SCH (09:34)
[2025-04-09 11:27] LABS: Nucleated Red Blood Cells % 0.1 %
[2025-04-09 11:29] LABS: Hematocrit 50.0 % (41.0-53.0); Hemoglobin 15.3 g/dL (13.5-17.5); Mean Corpuscular Hemoglobin 25.6 pg (28.0-32.0); Mean Corpuscular Volume 83.9 fL (80.0-100.0)
[2025-04-09 12:12] LABS: Alanine Aminotransferase 15 U/L (7-40); Albumin 3.5 g/dL (3.2-4.8); Alkaline Phosphatase 96 U/L (46-116); Anion Gap 11 (5-15); BUN/Creatinine Ratio 20.7 (10.0-20.0); Calcium 8.8 mg/dL (8.7-10.4); Carbon Dioxide 22 mmol/L (20-31); Potassium 4.5 mmol/L (3.5-5.1); Total Protein 6.6 g/dL (5.7-8.2)
[2025-04-09 12:23] LABS: Bilirubin, Total 1.5 mg/dL (0.2-1.0); Blood Urea Nitrogen 30 mg/dL (9-23); Chloride 112 mmol/L (98-107); Glucose 130 mg/dL (74-106); Sodium 145 mmol/L (136-145)
--- NOTE | 2025-04-09 16:08 | DVHPNRES ---
Progress Note Date Seen: Apr 09, 2025 Resident Creating Document: SUZANNE BALDWIN RESIDENT Medical Necessity Reason Pt with a Central, PICC or Fol: No Subjective Review of Systems Cr Peterson is a 60-year-old male with past medical history of HFrEF, HTN, PE, presented to the ER with chief complain of bilateral lower limb swelling, which has lasted for 4 months, has been on and off, worsening since yesterday. He reports being short of breaths when he is talking. Poor historian; He seems confused about the history, further history is obtained by the sister after his consent. The sister reported difficulty breathing, orthopnea urged his visit to ER. She also reported hospitalization last week for similar episode. 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 The sister reported he does not follow with a spice fumigator. She also reported history of a papular wound in the abdominal flap which had a purulent discharge. His at home medications: Eliquis, Jardiance, spironolactone, doxycycline, carvedilol, torsemide, Pepcid, irbesartan hydrochlorothiazide, nifedipine. ROS: Constitutional: Denies weight loss, fever and chills. HEENT: Denies changes in vision and hearing. Respiratory: Denies shortness of breath and cough Cardiovascular: Shortness of breaths, orthopnea GI: Denies abdominal pain, nausea, vomiting and diarrhea. : Denies dysuria and urinary frequency. Musculoskeletal: Denies myalgias and joint pain Skin: Denies rash and pruritus. Neurological: Denies dizziness, headache, vision or hearing problems He was examined at bedside today. Continues to complain of swelling and feeling of heaviness in bilateral lower extremities. His vital signs show intermittent tachycardia, bus driver/monitor showing nonsustained V-tach. We will consult Cardiology and continue to monitor and manage this patient. Objective vital signs Vital Sign Date Time Temp Pulse Resp B/P (MAP) Pulse Ox O2 Delivery O2 Flow Rate FiO2 04/09/25 12:33 98.5 73 19 98/45 (62) 95 98.5 04/08/25 20:00 Nasal Cannula* 2 28 Total Intake and Output 04/08/25 04/08/25 04/09/25 15:00 23:00 07:00 Intake Total 50 ml 900 ml 320 ml Output Total 1200 ml 900 ml Balance 50 ml -300 ml -580 ml medications Current Medications Medications Dose Ordered Sig/Aayush Route Start Time Stop Time Status Last Admin Dose Admin Ceftriaxone Sodium 50 ml @ 100 mls/hr DAILY@09 IV 04/08/25 09:00 04/09/25 09:33 100 MLS/HR Apixaban 5 mg BID PO 04/07/25 22:00 04/09/25 09:34 5 MG Empaglifozin 10 mg DAILY PO 04/08/25 10:00 04/09/25 09:34 10 MG Spironolactone 12.5 mg DAILY PO 04/08/25 10:00 04/09/25 09:34 12.5 MG Acetaminophen 650 mg Q6HP PRN PO 04/07/25 19:30 Furosemide 80 mg DAILY IV 04/09/25 10:00 04/09/25 09:34 80 MG Morphine Sulfate 2 mg Q4HPRN PRN IV 04/08/25 16:30 04/08/25 16:42 2 MG Doxycycline Monohydrate 100 mg Q12HR PO 04/08/25 22:00 04/09/25 09:34 100 MG Examination General: Patient alert and oriented in person, place and time. Patient following commands. HEENT: Normocephalic, atraumatic, moist mucous membranes Respiratory/pulmonary: Mild crackles, wheeze on the right lung Cardiovascular: Normal heart sounds S1 and S2 with no associated murmurs Abdomen: Protuberant belly. Abdomen nondistended, there is no pain to palpation in any of the abdominal quadrants, no palpable masses. Extremities: Bilaterally swollen lower extremities with pitting edema grade 3 Skin: Dry, Scaly skin of bilaterally lower extremities Neurological: Intact cranial nerves with no focal neurologic deficits laboratory and microbiology Laboratory Tests 04/09/25 10:45 Test 04/09/25 10:45 Range/Units Serum Glucose 130 H 74-106 mg/dL Microbiology Date/Time Source Procedure Growth Status 04/07/25 16:45 Blood Blood Culture - Preliminary NO GROWTH AFTER 24 HOURS OF INCUBATION. Resulted Problem List/Assessment/Plan Problem List/Assessment/Plan Sepsis due to pneumonia, Gram-negative Gram-positive, possible Lactic acidosis Neutrophilic leukocytosis Tachycardia, tachypnea Labs show WBC 15250 today. Continue ceftriaxone, doxycycline Acute exacerbation of chronic HFrEF, with ejection fraction of 10-15% BNP elevated Continue furosemide Blood pressure was on the lower side, holding off spironolactone, empagliflozin, carvedilol, Nonsustained V-tach Cardiology consulted Hyperkalemia, resolved Corrected. Continue to monitor and manage History of Chronic kidney disease History of pulmonary embolism Continues home medication apixaban History of essential hypertension We will continue monitoring and managing DIET: Cardiac DVT PROPHYLAXIS: taking apixaban CODE STATUS: Goals of care discussed with patient at bedside for more than 25 minutes. Full code DISPOSITION: Med/surge Patient's status and plan discussed with the patient. Case discussed with Dr. Guzman. Plan discussed with: Patient My Orders My Orders Orders - SUZANNE BALDWIN RESIDENT Procedure Category Date Status Time Electrocardigram EKG 04/08/25 Logged 16:17 Date of Service: Apr 09, 2025 Billing Provider: CAROLINA GUZMAN MD Common Visit Codes: [id number] INP/OBS CARE(HIGH) SUZNANE BALDWIN RESIDENT Apr 09, 2025 16:08 CAROLINA GUZMAN MD Apr 13, 2025 20:29
--- NOTE | 2025-04-09 16:46 | DVHINCON2 ---
Date Seen: Apr 09, 2025 Referring Physician MD Chen resident Reason for Consultation Acute on chronic HFrEF with frequent arrhythmias History of Present Illness This is a 60-year-old male patient who presents to the emergency room with chief complaint of bilateral lower extremity edema for four months. He also mentions associated shortness of breath. Initial twelve lead electrocardiogram reveals normal sinus rhythm with incomplete right bundle branch block and left ventricular hypertrophy. Initial troponin level of 35ng/L. Significant past medical history includes nonischemic/biventricular cardiomyopathy, hypertension, prediabetes, benign prostatic hyperplasia, bilateral adrenal nodules, and morbid obesity. The patient reports a recent coronary angiogram in February 2025 at [facility] in [place], [place], without any catheter based intervention. It was also worth noting, that the patient takes Eliquis therapy per medication reconciliation, but he is unsure as to why. The patient states he does not currently have a napper tender in the outpatient setting. Past Medical History Past medical history reviewed. No other significant than mentioned above. Past Surgical History Past surgical history reviewed. Family History: Patient reports no known family medical history. Family History Family history reviewed. Social History Denies any illicit drug use or alcohol Patient admits to occasional tobacco use, 4-5 cigarettes per day Allergies: Coded Allergies: NO KNOWN ALLERGIES (Unverified , 12/31/24) Home Meds Active Scripts Furosemide (Furosemide) 40 Mg Tab, 40 MG PO BID for 10 Days, #90 TAB Prov:JOSE CABRERA MD 03/17/25 Carvedilol (COREG) 12.5 Mg Tab, 12.5 MG PO BID, #60 TAB Prov:JOSE CABRERA MD 03/17/25 Spironolactone (Spironolactone) 25 Mg Tab, 0.5 TAB PO DAILY for 30 Days, #15 TAB Prov:JOSE CABRERA MD 03/17/25 Empagliflozin (Jardiance) 10 Mg Tab, 1 TAB PO DAILY for 30 Days, #30 TAB Prov:JOSE CABRERA MD 03/17/25 Reported Medications Nifedipine (Nifedipine Er) 90 Mg Tab, 1 TAB PO DAILY for 90 Days, #90 03/05/25 Irbesartan-Hydrochlorothiazide (Irbesartan/Hydrochlorothi 150-12.5 mg) 1 Tab Tab, 1 TAB PO DAILY for 90 Days, #90 [IRBESARTAN-HYDROCHLOROTHIAZIDE 300-12.5 MG] 03/05/25 Apixaban Base (ELIQUIS) 5 Mg Tab, 1 TAB PO BID for 30 Days, #60 03/05/25 Famotidine (PEPCID TABLET) 20 Mg Tb, 1 TAB PO DAILY for 30 Days, #30 03/05/25 Home Meds Home medications reviewed. Current Medications Current Medications Medications (Trade) Dose Ordered Sig/Aayush Route PRN Reason Start Time Stop Time Status Last Admin Furosemide (Lasix Injection) 80 mg DAILY IV 04/09/25 10:00 04/09/25 09:34 Doxycycline Monohydrate (Vibramycin Tablet) 100 mg Q12HR PO 04/08/25 22:00 04/09/25 09:34 Review of Systems Constitutional: No symptom reported Ears, Nose, & Throat: No symptom reported Eyes: No symptom reported Neurological: No symptoms reported Pulmonary/Respiratory: Shortness of breath Cardiovascular: Bilateral lower extremity edema Gastrointestinal: No symptom reported Genitourinary: No symptom reported Musculoskeletal: No symptom reported Skin: No symptom reported Psychiatric: No symptom reported Endocrine: No symptom reported Hematologic/Lymphatic: No symptom reported Vital Signs Vital Signs Date Time Temp Pulse Resp B/P (MAP) Pulse Ox O2 Delivery O2 Flow Rate FiO2 04/09/25 12:33 98.5 73 19 98/45 (62) 95 98.5 04/08/25 20:00 Nasal Cannula* 2 28 Physical Exam General Appearance: Cooperative. Morbidly obese Pulmonary/Respiratory: Diminished throughout Cardiovascular/Chest: Regular rate and rhythm. Peripheral Pulses: 2+ Radial (R). 2+ Radial (L). Abdominal Exam: Normal bowel sounds. Large distended abdomen Ankle Exam: 2+ pitting edema Lower extremities: 3+ pitting edema Neuro/Mental Status: A/OX4, coherent. Thoughts/Psych: Normal thought pattern. Appropriate mood and affect. Good judgment and insight. Appearance: No acute distress. Skin Exam: Normal inspection. Normal color. Warm and dry. Labs/Diagnostic Data Labs Test 04/09/25 10:45 04/09/25 05:00 04/08/25 20:49 04/08/25 19:50 Range/Units White Blood Count 13.0 H 4.4-10.8 10^3/uL Red Blood Count 5.96 H 4.5-5.90 10^6/uL Hemoglobin 15.3 13.5-17.5 g/dL Hematocrit 50.0 # 41.0-53.0 % Mean Corpuscular Volume 83.9 80.0-100.0 fL Mean Corpuscular Hemoglobin 25.6 L 28.0-32.0 pg Mean Corpuscular Hemoglobin Concent 30.6 L 32.0-36.0 g/dL Red Cell Distribution Width 19.2 H 11.8-14.3 % Platelet Count 160 140-450 10^3/uL Mean Platelet Volume 9.0 6.9-10.8 fL Neutrophils (%) (Auto) 81.7 H 37.0-80.0 % Lymphocytes (%) (Auto) 8.1 L 10.0-50.0 % Monocytes (%) (Auto) 9.6 0.0-12.0 % Eosinophils (%) (Auto) 0.5 0.0-7.0 % Basophils (%) (Auto) 0.1 0.0-2.0 % Neutrophils # (Auto) 10.6 H 1.6-8.6 10 ^3/uL Lymphocytes # (Auto) 1.1 0.4-5.4 10 ^3/uL Monocytes # (Auto) 1.2 0-1.3 10 ^3/uL Eosinophils # (Auto) 0.1 0-0.8 10 ^3/uL Basophils # (Auto) 0 0-0.2 10 ^3/uL Nucleated Red Blood Cells 0.1 % Sodium Level 145 136-145 mmol/L Potassium Level 4.5 3.5-5.1 mmol/L Chloride Level 112 H 98-107 mmol/L Carbon Dioxide Level 22 20-31 mmol/L Anion Gap 11 5-15 Blood Urea Nitrogen 30 H 9-23 mg/dL Creatinine 1.45 H 0.700-1.30 mg/dL Glomerular Filtration Rate Calc 55 >90 mL/min BUN/Creatinine Ratio 20.7 H 10.0-20.0 Serum Glucose 130 H 74-106 mg/dL Calcium Level 8.8 8.7-10.4 mg/dL Total Bilirubin 1.5 H 0.2-1.0 mg/dL Aspartate Amino Transferase (AST) 24 13-40 U/L Alanine Aminotransferase (ALT) 15 7-40 U/L Alkaline Phosphatase 96 46-116 U/L Total Protein 6.6 5.7-8.2 g/dL Albumin 3.5 3.2-4.8 g/dL Influenza Type A Antigen Negative Negative Influenza Type B Antigen Negative Negative SARS-CoV-2 Antigen (Rapid) Negative NEGATIVE Erythrocyte Sedimentation Rate 4 0-20 mm/hr Lactic Acid Level 3.3 *H 0.4-2.0 mmol/L Troponin I High Sensitivity 31 </=54 ng/L C-Reactive Protein High Sensitivity 13.08 H <1.0 mg/dL Test 04/08/25 04:59 04/07/25 21:10 04/07/25 13:46 Range/Units Magnesium Level 2.9 H 1.6-2.6 mg/dL POC Glucose 144 H 70-106 mg/dl B-Type Natriuretic Peptide 4522.26 0-100 pg/mL Microbiology Date/Time Source Procedure Growth Status 04/07/25 16:45 Blood Blood Culture - Preliminary NO GROWTH AFTER 24 HOURS OF INCUBATION. 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 Zimmer): * Transthoracic echocardiogram from 12/31/2024 reveals EF of 10-15% with severe global hypokinesis, RVSP 60 mmHg * Initiate guideline directed medical therapy for CHF as renal function permits * Hold beta-brandon at this time given severe fluid overload * Initiate ARNI with improved renal function * Consider Ivabridine therapy * Avoid dobutamine and Milrinone at this time given frequent nonsustained V- tach episodes as these medications may worsen these episodes. * Strict intake and output, daily weights, maintain fluid restriction * Aggressive diuresis as tolerated by renal function * Initiate amiodarone therapy for nonsustained V-tach * Continuous telemetry monitoring Case discussed with . The patient is likely at end-stage heart failure. After reviewing previous medical records, the patient was noted to have questionable metastatic disease as per previous CT angio chest and CT abdomen and pelvis (on 12/31/24). These findings were never worked up by Oncology. Ple ase consider further metastatic workup as this may change the course of treatment for this patient. If the patient is confirmed to have metastatic disease, he will most likely not qualify for heart transplant. As per guidelines, the patient may not qualify for ICD implantation if life expectancy is less than one year. Thank you for allowing us to care for this patient. Please call with any questions or concerns. Critical care time spent: 44 minutes This medical document was created using an electronic medical record system with voice recognition software and computerized dictation system. Although this document has been carefully reviewed, there might still be some phonetic and typographical errors. Occasional wrong-word or ``sound-alike substitutions may have occurred due to the inherent limitations of voice recognition software. These areas are purely typographical due to imperfections of the software programs and do not reflect any compromise in the patient's medical care. Please read the chart carefully and recognize, using context, where these substitutions have occurred. Plan discussed with: Patient NYHA Physical activity limitations: Class4(Severe)discomfort (w any activit,symptoms at rest) Date of Service: Apr 09, 2025 Billing Provider: PENELOPE WYATT Cardiology Common Codes: 56645-OWAQUBS INP/OBS CARE (High) Cardiology Consultation Codes: 45673-[id number] CONSULT <45MIN PENELOPE WYATT Apr 09, 2025 16:46
[2025-04-09 19:35] LABS: Lactic Acid w/Reflex 3.5 mmol/L (0.4-2.0)
[2025-04-09] MEDS: AMIODARONE HCL 200 MG TAB PO SCH (21:43)
[2025-04-10] VITALS (7 sets, daily range): BP systolic 102–130; BP diastolic 72–87; PULSE 94–100; RESP 16–20; TEMP 97.5–98.4; O2SAT 90–95
[2025-04-10 06:45] LABS: Hematocrit 42.7 % (41.0-53.0); Hemoglobin 14.1 g/dL (13.5-17.5); Mean Corpuscular Hemoglobin 26.5 pg (28.0-32.0); Mean Corpuscular Volume 80.3 fL (80.0-100.0); Nucleated Red Blood Cells % 0.1 %
[2025-04-10 07:06] LABS: Alanine Aminotransferase 23 U/L (7-40); Alkaline Phosphatase 93 U/L (46-116); Anion Gap 8 (5-15); Carbon Dioxide 28 mmol/L (20-31); Potassium 3.9 mmol/L (3.5-5.1); Total Protein 6.2 g/dL (5.7-8.2)
[2025-04-10 07:07] LABS: Albumin 3.4 g/dL (3.2-4.8); BUN/Creatinine Ratio 22.2 (10.0-20.0); Blood Urea Nitrogen 32 mg/dL (9-23); Calcium 8.7 mg/dL (8.7-10.4); Chloride 110 mmol/L (98-107); Glucose 131 mg/dL (74-106); Sodium 146 mmol/L (136-145)
[2025-04-10 07:25] LABS: Bilirubin, Total 1.4 mg/dL (0.2-1.0)
--- NOTE | 2025-04-10 08:07 | ECG ---
[facility] Test Date: 2025-04-09 Test Time: 12:22:17 Pat Name: CHRIS DUPONT Department: Respiratoy Room: 0247T B Gender: M Stock Manager: : 1965 Requested By: COBY CRESPO Order Number: [id number] Reading MD: Radames Zimmer Measurements Intervals [place] Rate: 99 P: 0 AR: 0 QRS: 115 QRSD: 166 T: -54 QT: 445 QTc: 572 Interpretive Statements Atrial fibrillation Right bundle branch block Repol abnrm suggests ischemia, lateral leads Electronically Signed On 04-14-2025 18:37:14 PDT by Radames Zimmer Please click the below link to view image of tracing.
--- NOTE | 2025-04-10 08:07 | ECG ---
[facility] Test Date: 2025-04-09 Test Time: 12:18:23 Pat Name: CHRIS DUPONT Department: Respiratoy Room: 0247T B Gender: M Admitting Interviewer: MR PRUETTB: 1965 Requested By: SUZANNE BALDWIN Order Number: [id number] Reading MD: Radames Zimmer Measurements Intervals [place] Rate: 98 P: 0 PA: 0 QRS: 127 QRSD: 161 T: -54 QT: 437 QTc: 559 Interpretive Statements atrial fibrillation, Right bundle branch block Repol abnrm suggests ischemia, diffuse leads ST depression V1-V3, suggest recording posterior leads Electronically Signed On 04-14-2025 18:36:57 PDT by Radames Zimmer Please click the below link to view image of tracing.
[2025-04-10] MEDS: METOPROLOL TARTRATE 25 MG TAB PO SCH (11:51)
[2025-04-10] MEDS: SPIRONOLACTONE 25 MG TAB PO SCH (11:51)
[2025-04-10] MEDS ORDERED: IOHEXOL 300 MG/ML 100ML BOTTLE IJ ONE (11:56)
[2025-04-10] MEDS ORDERED: OMNIPAQUE 12mg/ml 500ml ORAL SOLUTION PO ONE (11:56)
--- NOTE | 2025-04-10 14:57 | DVHPN2 ---
Consult Progress Note Date Seen: Apr 10, 2025 Subjective Review of Systems: CVS:Normal, RESPIRATORY:Abnormal, NEURO:Normal Objective vital signs Vital Sign Date Time Temp Pulse Resp B/P (MAP) Pulse Ox O2 Delivery O2 Flow Rate FiO2 04/10/25 13:00 97.8 99 20 102/72 (82) 94 97.8 04/10/25 08:00 Nasal Cannula* 3 32 Total Intake and Output 04/09/25 04/09/25 04/10/25 15:00 23:00 07:00 Intake Total 988 ml 600 ml Output Total 1875 ml 300 ml Balance -887 ml 300 ml medications Current Medications Medications Dose Ordered Sig/Aayush Route Start Time Stop Time Status Last Admin Dose Admin Ceftriaxone Sodium 50 ml @ 100 mls/hr DAILY@09 IV 04/08/25 09:00 04/10/25 11:50 100 MLS/HR Apixaban 5 mg BID PO 04/07/25 22:00 04/10/25 11:51 5 MG Empaglifozin 10 mg DAILY PO 04/08/25 10:00 04/10/25 11:51 10 MG Acetaminophen 650 mg Q6HP PRN PO 04/07/25 19:30 Doxycycline Monohydrate 100 mg Q12HR PO 04/08/25 22:00 04/10/25 11:51 100 MG Amiodarone HCl 200 mg Q12HR PO 04/09/25 22:00 04/10/25 11:51 200 MG Spironolactone 12.5 mg DAILY PO 04/11/25 10:00 UNV Furosemide 100 mg/ Sodium Chloride 110 ml @ 6.6 mls/hr [id number] IV 04/10/25 14:45 UNV Examination: GENERAL:Abnormal (Chronically ill), LUNGS:Abnormal (Tachypneic, +crackles), CVS:Normal (Sinus rhythm), MSK:Abnormal (++pitting BLE edema), NEURO:Normal laboratory and microbiology Laboratory Tests 04/10/25 06:15 Test 04/10/25 06:15 Range/Units Serum Glucose 131 H 74-106 mg/dL Problem List/Assessment/Plan Problem List/Assessment/Plan Acute on chronic decompensated HFrEF, NYHA Class IV Non-ischemic/biventricular cardiomyopathy Nonsustained ventricular tachycardia Severe pulmonary hypertension Aortic valve insufficiency, moderate to severe Tricuspid valve regurgitation, severe degree 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 Zimmer) * Transthoracic echocardiogram from 12/31/2024 reveals EF of 10-15% with severe global hypokinesis, RVSP 60 mmHg * Initiate guideline directed medical therapy for CHF as renal function/BP permits * Currently of low-dose mineralocorticoid and SGLT2 inhibitor * Initiate Ivabridine and metoprolol therapy after resolution of acute decompensation of HF * Avoid inotropic support given frequent nonsustained V-tach events * Preload reduction, initiate Lasix drip * Strict intake and output, daily weights, maintain fluid restriction, insert white catheter * Antiarrhythmic therapy, amiodarone BID * Continuous telemetry monitoring Given possible metastatic disease, as per guidelines the patient may not qualify for ICD implantation if life expectancy is less than one year. Continue conservative management at this time. Thank you for allowing us to care for this patient. Please call with any questions or concerns. This medical document was created using an electronic medical record system with voice recognition software and computerized dictation system. Although this document has been carefully reviewed, there might still be some phonetic and typographical errors. Occasional wrong-word or ``sound-alike substitutions may have occurred due to the inherent limitations of voice recognition software. These areas are purely typographical due to imperfections of the software programs and do not reflect any compromise in the patient's medical care. Please read the chart carefully and recognize, using context, where these substitutions have occurred. Plan discussed with: Patient, Other Date of Service: Apr 10, 2025 Billing Provider: JODI NASH Cardiology Common Codes: 34167-[id number] HOSP CARE([facility] JODI NASH Apr 10, 2025 14:57
--- NOTE | 2025-04-10 16:00 | DVH ---
Exam: CT CT ABD PELVIS W CON-ORAL IV History: To rule GI malignancy Comparison Study: CT CT AB PEL WO CON-NO ORAL OR IV on DOS: 12/31/24 TECHNIQUE: Multidetector CT of the abdomen and pelvis with IV contrast. Axial, coronal and sagittal m ultiplanar reformats were obtained from the axial data set by the technologist. Radiation Dose Information: CT Dose: CTDI volume is 24.67 mGy. Dose-length product is 1641.01 mGy*cm FINDINGS: Small right with Trace left-sided pleural effusion associated atelectasis. Bibasilar patchy ground-gl ass and solid opacities with cavitation of the left lung base consolidation. Subcentimeter lymph node within the anterior epicardial fat. [id number] cardiomegaly. Redemonstration of 2.1 x 2.1 cm soft tissue density lesion abutting the pancreatic tail. Otherwise, the pancreas, liver, spleen and unremarkable. Redemonstration of 3.4 cm left adrenal nodule with alin sures as an adenoma on prior imaging. Redemonstration of 2.2 cm right adrenal nodule with measured ad enoma on prior noncontrast imaging. Cholelithiasis within a minimally distended gallbladder with poss ible focal wall thickening of the gallbladder. 1 cm left renal cyst with unchanged 7.4 cm in maximum diameter and 1.7 cm right renal lower pole cyst s no [place] nephrosis bilaterally. Nonspecific bilateral perirenal fat stranding. Urinary bladder is u nremarkable. Prostate measures 4.6 x 5.9 x 6.1 cm. Stomach is unremarkable. Small-bowel loops are contrast filled and nondistended. Appendix is unremark able. Moderate amount of fecal material within the colon. Mild distal rectal wall thickening. Diffuse mesenteric edema. No evidence of intraperitoneal free air. Small fat containing umbilical hernia small fat containing bilateral inguinal hernias. 2.6 x 3.6 right upper scrotal/ anterior peritoneal cystic lesion abutting the skin which may represen t a sebaceous cysts. 8 x 10 x 7 cm Right posterior lower thoracic subcutaneous fat lipoma. Moderate b dai wall edema. Skin thickening of the pannus. There is Foci of air of the previously noted possible sebaceous cysts of the left lateral pollens. No evidence of acute bony abnormalities. IMPRESSION: Cholelithiasis with focal wall thickening of the gallbladder. Right upper quadrant ultrasound is kenan mmended for further evaluation. Mild distal rectal wall thickening which may be due to inadequate distention with mild proctitis not excluded. Moderate amount of fecal material within the colon. 2.1 x 2.1 cm soft tissue density lesion abutting the pancreatic tail which may represent a pancreatic tail lesion versus intrapancreatic accessory spleen. MRI with and without contrast is recommended fo r further evaluation. Mild mesenteric edema. 1.1 cm right pelvic sidewall lymph node with 1.5 cm in short axis retroperitoneal lymph node at the l evel of the inferior pole of the left kidney which may be reactive/neoplastic. Bilateral adrenal lesions which measures as adenomas on the noncontrast CT abdomen and pelvis of 12/04 relatively unchanged in size. Bilateral renal cysts. Moderate body wall edema. Small right with Trace left-sided pleural effusions and associated atelectasis with bibasilar ground- glass and solid opacities which may represent infectious process. Additional findings as above.
[2025-04-10] MEDS: FUROSEMIDE INJECTION 100 MG in SODIUM CHL 0.9% 100 ML IV SCH (17:38)
--- NOTE | 2025-04-10 17:58 | DVHPNRES ---
Progress Note Date Seen: Apr 10, 2025 Resident Creating Document: SUZANNE BALDWIN RESIDENT Medical Necessity Reason Pt with a Central, PICC or Fol: No The following are medically ne: White Catheter Subjective Review of Systems Cr Peterson is a 60-year-old male with past medical history of HFrEF, HTN, PE, presented to the ER with chief complain of bilateral lower limb swelling, which has lasted for 4 months, has been on and off, worsening since yesterday. He reports being short of breaths when he is talking. Poor historian; He seems confused about the history, further history is obtained by the sister after his consent. The sister reported difficulty breathing, orthopnea urged his visit to ER. She also reported hospitalization last week for similar episode. 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 The sister reported he does not follow with a layout artist. She also reported history of a papular wound in the abdominal flap which had a purulent discharge. His at home medications: Eliquis, Jardiance, spironolactone, doxycycline, carvedilol, torsemide, Pepcid, irbesartan hydrochlorothiazide, nifedipine. ROS: Constitutional: Denies weight loss, fever and chills. HEENT: Denies changes in vision and hearing. Respiratory: Denies shortness of breath and cough Cardiovascular: Shortness of breaths, orthopnea GI: Denies abdominal pain, nausea, vomiting and diarrhea. : Denies dysuria and urinary frequency. Musculoskeletal: Denies myalgias and joint pain Skin: Denies rash and pruritus. Neurological: Denies dizziness, headache, vision or hearing problems He was examined at bedside today. Reports swelling and feeling of heaviness in bilateral lower extremities has improved. His vital signs show low blood pressure. Continue to monitor and manage this patient. Objective vital signs Vital Sign Date Time Temp Pulse Resp B/P (MAP) Pulse Ox O2 Delivery O2 Flow Rate FiO2 04/10/25 17:38 102/61 04/10/25 13:00 97.8 99 20 94 97.8 04/10/25 08:00 Nasal Cannula* 3 32 Total Intake and Output 04/09/25 04/09/25 04/10/25 15:00 23:00 07:00 Intake Total 988 ml 600 ml Output Total 1875 ml 300 ml Balance -887 ml 300 ml medications Current Medications Medications Dose Ordered Sig/Aayush Route Start Time Stop Time Status Last Admin Dose Admin Ceftriaxone Sodium 50 ml @ 100 mls/hr DAILY@09 IV 04/08/25 09:00 04/10/25 11:50 100 MLS/HR Apixaban 5 mg BID PO 04/07/25 22:00 04/10/25 11:51 5 MG Empaglifozin 10 mg DAILY PO 04/08/25 10:00 04/10/25 11:51 10 MG Acetaminophen 650 mg Q6HP PRN PO 04/07/25 19:30 Doxycycline Monohydrate 100 mg Q12HR PO 04/08/25 22:00 04/10/25 11:51 100 MG Amiodarone HCl 200 mg Q12HR PO 04/09/25 22:00 04/10/25 11:51 200 MG Spironolactone 12.5 mg DAILY PO 04/11/25 10:00 Furosemide 100 mg/ Sodium Chloride 110 ml @ 6.6 mls/hr [id number] IV 04/10/25 14:45 04/10/25 17:38 6.6 MLS/HR Examination General: Patient alert and oriented in person, place and time. Patient following commands. HEENT: Normocephalic, atraumatic, moist mucous membranes Respiratory/pulmonary: Mild crackles, wheeze on the right lung Cardiovascular: Normal heart sounds S1 and S2 with no associated murmurs Abdomen: Protuberant belly. Abdomen nondistended, there is no pain to palpation in any of the abdominal quadrants, no palpable masses. Extremities: Bilaterally swollen lower extremities with pitting edema grade 3 Skin: Dry, Scaly skin of bilaterally lower extremities Neurological: Intact cranial nerves with no focal neurologic deficits laboratory and microbiology Laboratory Tests 04/10/25 06:15 Test 04/10/25 06:15 Range/Units Serum Glucose 131 H 74-106 mg/dL Microbiology Date/Time Source Procedure Growth Status 04/09/25 23:40 Nose MRSA Screen - Final Complete 04/07/25 16:45 Blood Blood Culture - Preliminary NO GROWTH AFTER 72 HOURS OF INCUBATION. Resulted Problem List/Assessment/Plan Problem List/Assessment/Plan Sepsis due to pneumonia, Gram-negative Gram-positive, possible Neutrophilic leukocytosis Tachycardia, tachypnea Labs show WBC [address] revealed small right with Trace left-sided pleural effusions and associated atelectasis with bibasilar ground-glass and solid opacities which may represent infectious process. Blood culture negative preliminarily Continue ceftriaxone, doxycycline Acute on chronic decompensated HFrEF, NYHA Class IV, with ejection fraction of 10-15% Severe pulmonary hypertension Non-ischemic/biventricular cardiomyopathy Cardiogenic shock stage B, C, possible Lactic acidosis Hypotension BNP elevated Blood pressure was on the lower side, holding off spironolactone, empagliflozin, carvedilol. Monitoring on telemetry Strict I&O Continue furosemide We will re-initiate GDMT when BP permits Cardiology on board recommended Initiating Ivabridine and metoprolol therapy after resolution of acute decompensation of HF. Strict intake and output, daily weights, maintain fluid restriction, insert white catheter. Antiarrhythmic therapy, amiodarone BID Nonsustained V-tach Cardiology consulted Hyperkalemia, resolved Corrected. Continue to monitor and manage History of Chronic kidney disease History of pulmonary embolism Continues home medication apixaban History of essential hypertension We will continue monitoring and managing Possible pancreatic malignancy CT contrast abdomen revealed 2.1 x 2.1 cm soft tissue density lesion abutting the pancreatic tail which may represent a pancreatic tail lesion versus intrapancreatic accessory spleen. MRI with and without contrast is recommended for further evaluation. 1.1 cm right pelvic sidewall lymph node with 1.5 cm in short axis retroperitoneal lymph node at the level of the inferior pole of the left kidney which may be reactive/neoplastic. Bedside discussion with patient to understand goals of care before further evaluating malignancy We will continue evaluating Bilateral adrenal adenomas, CT finding CT contrast revealed bilateral adrenal lesions which measures as adenomas on the noncontrast CT abdomen and pelvis of 12/31/2024 relatively unchanged in size. Bilateral renal cysts, CT finding Cholelithiasis, CT finding Small umbilical hernia, CT finding Aortic valve insufficiency, moderate to severe Tricuspid valve regurgitation, severe degree On Eliquis therapy for unknown diagnoses EDVIN on CKD Nicotine dependence Morbid obesity DIET: Cardiac DVT PROPHYLAXIS: taking apixaban CODE STATUS: Goals of care discussed with patient at bedside for more than 25 minutes. Full code DISPOSITION: Med/surge Patient's status and plan discussed with the patient. Case discussed with Dr. Aguilar. Plan discussed with: Patient My Orders My Orders Orders - SUZANNE BALDWIN RESIDENT Procedure Category Date Status Time * Wound Consult CONS 8/6/[address] Abd Pelvis W CT 04/10/25 Resulted Con-Oral & Iv 11:50 Date of Service: Apr 10, 2025 Billing Provider: CAROLINA AGUILAR MD Common Visit Codes: [id number] INP/OBS CARE(HIGH) SUZANNE BALDWIN RESIDENT Apr 10, 2025 17:58 CAROLINA AGUILAR MD Apr 13, 2025 20:45
--- NOTE | 2025-04-10 19:50 | DVH ---
INDICATION: hepatobiliary tract pathology to rule out TECHNIQUE: Multiple real-time sonographic images of the abdomen were obtained. COMPARISON: CT CT ABD PELVIS W CON-ORAL IV on DOS: 04/10/25, CT CT AB PEL WO CON-NO ORAL OR IV on DOS : 12/31/24 FINDINGS: Liver appears heterogeneous. The liver measures 15.7 cm. No intrahepatic biliary ductal di latation is noted. Right pleural effusion Gallbladder not visualized The common duct measures 0.8 cm cm and is dilated. No pericholecystic fl uid is noted. Negative ultrasound Layton's sign The right kidney measures 10.4 cm. No hydronephrosis. 3.8 cm anechoic lesion inferior pole right kid maci consistent with a cyst The left kidney not visible. The spleen measures 12.4 cm, within normal limits. The echogenicity is within normal limits. The pancreas is not well visualized due to obscuration from bowel gas. The visualized portions of the IVC and aorta are grossly unremarkable. IMPRESSION: 1. Difficult examination due to patient's morbid obesity. 2. Right pleural effusion. 3. Gallbladder not visible possibly contracted 4. 10.4 cm long right kidney. 3.8 cm cortical cyst lower pole right kidney 5. Spleen measures 12.4 cm. 6. Left kidney not visible.
[2025-04-10 21:33] LABS: Hemoglobin 15.5 g/dL (13.5-17.5); Nucleated Red Blood Cells % 0.1 %
[2025-04-10 21:35] LABS: Hematocrit 47.8 % (41.0-53.0); Mean Corpuscular Hemoglobin 26.6 pg (28.0-32.0); Mean Corpuscular Volume 82.1 fL (80.0-100.0)
[2025-04-10 21:49] LABS: Alanine Aminotransferase 30 U/L (7-40); Albumin 3.6 g/dL (3.2-4.8); Anion Gap 9 (5-15); BUN/Creatinine Ratio 20.8 (10.0-20.0); Calcium 8.7 mg/dL (8.7-10.4); Carbon Dioxide 27 mmol/L (20-31); Potassium 4.1 mmol/L (3.5-5.1); Sodium 144 mmol/L (136-145); Total Protein 6.8 g/dL (5.7-8.2)
[2025-04-10 21:56] LABS: Alkaline Phosphatase 120 U/L (46-116); Bilirubin, Total 1.5 mg/dL (0.2-1.0); Blood Urea Nitrogen 30 mg/dL (9-23); Chloride 108 mmol/L (98-107); Glucose 111 mg/dL (74-106)
[2025-04-11] VITALS (8 sets, daily range): BP systolic 122–148; BP diastolic 73–97; PULSE 89–100; RESP 17–20; TEMP 97.8–98.1; O2SAT 88–97
[2025-04-11 08:33] LABS: Anion Gap 10 (5-15); Carbon Dioxide 26 mmol/L (20-31); Potassium 3.9 mmol/L (3.5-5.1)
[2025-04-11 08:39] LABS: Glucose 99 mg/dL (74-106)
[2025-04-11 08:40] LABS: BUN/Creatinine Ratio 21.5 (10.0-20.0); Blood Urea Nitrogen 31 mg/dL (9-23); Calcium 8.6 mg/dL (8.7-10.4); Chloride 109 mmol/L (98-107); Sodium 145 mmol/L (136-145)
[2025-04-11] MEDS: SPIRONOLACTONE 25 MG TAB PO SCH (09:14)
--- NOTE | 2025-04-11 16:27 | DVHPNRES ---
Progress Note Date Seen: Apr 11, 2025 Resident Creating Document: SUZANNE BALDWIN RESIDENT Medical Necessity Reason Pt with a Central, PICC or Fol: No The following are medically ne: White Catheter Subjective Review of Systems Cr Peterson is a 60-year-old male with past medical history of HFrEF, HTN, PE, presented to the ER with chief complain of bilateral lower limb swelling, which has lasted for 4 months, has been on and off, worsening since yesterday. He reports being short of breaths when he is talking. Poor historian; He seems confused about the history, further history is obtained by the sister after his consent. The sister reported difficulty breathing, orthopnea urged his visit to ER. She also reported hospitalization last week for similar episode. 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 The sister reported he does not follow with a physician compensation analyst. She also reported history of a papular wound in the abdominal flap which had a purulent discharge. His at home medications: Eliquis, Jardiance, spironolactone, doxycycline, carvedilol, torsemide, Pepcid, irbesartan hydrochlorothiazide, nifedipine. ROS: Constitutional: Denies weight loss, fever and chills. HEENT: Denies changes in vision and hearing. Respiratory: Denies shortness of breath and cough Cardiovascular: Shortness of breaths, orthopnea GI: Denies abdominal pain, nausea, vomiting and diarrhea. : Denies dysuria and urinary frequency. Musculoskeletal: Denies myalgias and joint pain Skin: Denies rash and pruritus. Neurological: Denies dizziness, headache, vision or hearing problems He was examined at bedside today. Reports swelling and feeling of heaviness in bilateral lower extremities has improved. His vital signs show low blood pressure. Discussed CT findings. Continue to monitor and manage this patient. Objective vital signs Vital Sign Date Time Temp Pulse Resp B/P (MAP) Pulse Ox O2 Delivery O2 Flow Rate FiO2 04/11/25 13:00 97.9 98 18 125/93 (104) 95 97.9 04/11/25 08:00 Room Air* 0 21 Total Intake and Output 04/10/25 04/10/25 04/11/25 15:00 23:00 07:00 Intake Total 850 ml 300 ml Output Total 450 ml 2600 ml Balance 400 ml -2300 ml medications Current Medications Medications Dose Ordered Sig/Aayush Route Start Time Stop Time Status Last Admin Dose Admin Ceftriaxone Sodium 50 ml @ 100 mls/hr DAILY@09 IV 04/08/25 09:00 04/11/25 09:11 100 MLS/HR Apixaban 5 mg BID PO 04/07/25 22:00 04/11/25 09:14 5 MG Empaglifozin 10 mg DAILY PO 04/08/25 10:00 04/11/25 09:14 10 MG Acetaminophen 650 mg Q6HP PRN PO 04/07/25 19:30 Doxycycline Monohydrate 100 mg Q12HR PO 04/08/25 22:00 04/11/25 09:12 100 MG Amiodarone HCl 200 mg Q12HR PO 04/09/25 22:00 04/11/25 09:12 200 MG Spironolactone 12.5 mg DAILY PO 04/11/25 10:00 04/11/25 09:14 12.5 MG Furosemide 100 mg/ Sodium Chloride 110 ml @ 6.6 mls/hr [id number] IV 04/10/25 14:45 04/11/25 05:16 6.6 MLS/HR Examination General: Patient alert and oriented in person, place and time. Patient following commands. HEENT: Normocephalic, atraumatic, moist mucous membranes Respiratory/pulmonary: Mild crackles, wheeze on the right lung Cardiovascular: Normal heart sounds S1 and S2 with no associated murmurs Abdomen: Protuberant belly. Abdomen nondistended, there is no pain to palpation in any of the abdominal quadrants, no palpable masses. Extremities: Bilaterally swollen lower extremities with pitting edema grade 3 Skin: Dry, Scaly skin of bilaterally lower extremities Neurological: Intact cranial nerves with no focal neurologic deficits laboratory and microbiology Laboratory Tests 04/11/25 07:23 04/10/25 21:02 Test 04/11/25 07:23 Range/Units Serum Glucose 99 74-106 mg/dL Microbiology Date/Time Source Procedure Growth Status 04/09/25 23:40 Nose MRSA Screen - Final Complete 04/07/25 16:45 Blood Blood Culture - Preliminary NO GROWTH AFTER 72 HOURS OF INCUBATION. Resulted Problem List/Assessment/Plan Problem List/Assessment/Plan Sepsis due to pneumonia, Gram-negative Gram-positive, possible Neutrophilic leukocytosis Tachycardia, tachypnea Labs show WBC [address] revealed small right with Trace left-sided pleural effusions and associated atelectasis with bibasilar ground-glass and solid opacities which may represent infectious process. Blood culture negative preliminarily Continue ceftriaxone, doxycycline Acute on chronic decompensated HFrEF, NYHA Class IV, with ejection fraction of 10-15% Severe pulmonary hypertension Non-ischemic/biventricular cardiomyopathy Cardiogenic shock stage B, C, possible Lactic acidosis Hypotension BNP elevated Blood pressure was on the lower side, holding off spironolactone, empagliflozin, carvedilol. Monitoring on telemetry Strict I&O Continue furosemide We will re-initiate GDMT when BP permits Cardiology on board recommended Initiating Ivabridine and metoprolol therapy after resolution of acute decompensation of HF. Strict intake and output, daily weights, maintain fluid restriction, insert white catheter. Antiarrhythmic therapy, amiodarone BID Nonsustained V-tach Cardiology consulted Hyperkalemia, resolved Corrected. Continue to monitor and manage History of Chronic kidney disease History of pulmonary embolism Continues home medication apixaban History of essential hypertension We will continue monitoring and managing Possible pancreatic malignancy CT contrast abdomen revealed 2.1 x 2.1 cm soft tissue density lesion abutting the pancreatic tail which may represent a pancreatic tail lesion versus intrapancreatic accessory spleen. MRI with and without contrast is recommended for further evaluation. 1.1 cm right pelvic sidewall lymph node with 1.5 cm in short axis retroperitoneal lymph node at the level of the inferior pole of the left kidney which may be reactive/neoplastic. Bedside discussion with patient to understand goals of care before further evaluating malignancy We will continue evaluating Bilateral adrenal adenomas, CT finding CT contrast revealed bilateral adrenal lesions which measures as adenomas on the noncontrast CT abdomen and pelvis of 12/31/2024 relatively unchanged in size. Bilateral renal cysts, CT finding Cholelithiasis, CT finding Small umbilical hernia, CT finding Aortic valve insufficiency, moderate to severe Tricuspid valve regurgitation, severe degree On Eliquis therapy for unknown diagnoses EDVIN on CKD Nicotine dependence Morbid obesity DIET: Cardiac DVT PROPHYLAXIS: taking apixaban CODE STATUS: Goals of care discussed with patient at bedside for more than 25 minutes. Full code DISPOSITION: Med/surge Patient's status and plan discussed with the patient. Case discussed with Dr. Aguilar. Plan discussed with: Patient My Orders My Orders Orders - SUZANNE BALDWIN RESIDENT Procedure Category Date Status Time Electrocardigram EKG 04/11/25 Logged 00:12 Date of Service: Apr 11, 2025 Billing Provider: CAROLINA AGUILAR MD Common Visit Codes: [id number] INP/OBS CARE(HIGH) SUZANNE BALDWIN RESIDENT Apr 11, 2025 16:27 CAROLINA AGUILAR MD Apr 13, 2025 21:09
--- NOTE | 2025-04-11 17:11 | DVHPN2 ---
Consult Progress Note Date Seen: Apr 11, 2025 Subjective Review of Systems: CVS:Normal, RESPIRATORY:Abnormal, NEURO:Normal Other Systems: C/o mild SOB, improving Objective vital signs Vital Sign Date Time Temp Pulse Resp B/P (MAP) Pulse Ox O2 Delivery O2 Flow Rate FiO2 04/11/25 13:00 97.9 98 18 125/93 (104) 95 97.9 04/11/25 08:00 Room Air* 0 21 Total Intake and Output 04/10/25 04/10/25 04/11/25 15:00 23:00 07:00 Intake Total 850 ml 300 ml Output Total 450 ml 2600 ml Balance 400 ml -2300 ml medications Current Medications Medications Dose Ordered Sig/Aayush Route Start Time Stop Time Status Last Admin Dose Admin Ceftriaxone Sodium 50 ml @ 100 mls/hr DAILY@09 IV 04/08/25 09:00 04/11/25 09:11 100 MLS/HR Apixaban 5 mg BID PO 04/07/25 22:00 04/11/25 09:14 5 MG Empaglifozin 10 mg DAILY PO 04/08/25 10:00 04/11/25 09:14 10 MG Acetaminophen 650 mg Q6HP PRN PO 04/07/25 19:30 Doxycycline Monohydrate 100 mg Q12HR PO 04/08/25 22:00 04/11/25 09:12 100 MG Amiodarone HCl 200 mg Q12HR PO 04/09/25 22:00 04/11/25 09:12 200 MG Spironolactone 12.5 mg DAILY PO 04/11/25 10:00 04/11/25 09:14 12.5 MG Furosemide 100 mg/ Sodium Chloride 110 ml @ 6.6 mls/hr [id number] IV 04/10/25 14:45 04/11/25 05:16 6.6 MLS/HR Examination: GENERAL:Abnormal (Chronically ill), LUNGS:Abnormal (Bilateral crackles), CVS:Normal (Sinus rhythm), MSK:Abnormal (BLE edema ++), NEURO:Normal laboratory and microbiology Laboratory Tests 04/11/25 07:23 04/10/25 21:02 Test 04/11/25 07:23 Range/Units Serum Glucose 99 74-106 mg/dL Problem List/Assessment/Plan Problem List/Assessment/Plan Acute on chronic decompensated HFrEF, NYHA Class IV Non-ischemic/biventricular cardiomyopathy Nonsustained ventricular tachycardia Severe pulmonary hypertension Aortic valve insufficiency, moderate to severe Tricuspid valve regurgitation, severe degree Suspected malignancy with metastatic disease On Eliquis therapy for unknown diagnoses Hypertension EDVIN on CKD Nicotine dependence Morbid obesity Plan/Recommendation (Dr. Zimmer) * Transthoracic echocardiogram from 12/31/2024 reveals EF of 10-15% with severe global hypokinesis, RVSP 60 mmHg * Initiate guideline directed medical therapy for CHF as renal function/BP permits * Currently of low-dose mineralocorticoid and SGLT2 inhibitor * Initiate Ivabridine and metoprolol therapy after resolution of acute decompensation of HF * Avoid inotropic support given frequent nonsustained V-tach events * Preload reduction, continue Lasix drip * Strict intake and output, daily weights, maintain fluid restriction, insert white catheter * Antiarrhythmic therapy, amiodarone BID * DOAC therapy with Eliquis (Rx as outpatient for unknown diagnosis) * Continuous telemetry monitoring Given possible metastatic disease, as per guidelines the patient may not qualify for ICD implantation if life expectancy is less than one year. Continue conservative management at this time. Thank you for allowing us to care for this patient. Please call with any questions or concerns. This medical document was created using an electronic medical record system with voice recognition software and computerized dictation system. Although this document has been carefully reviewed, there might still be some phonetic and typographical errors. Occasional wrong-word or ``sound-alike substitutions may have occurred due to the inherent limitations of voice recognition software. These areas are purely typographical due to imperfections of the software programs and do not reflect any compromise in the patient's medical care. Please read the chart carefully and recognize, using context, where these substitutions have occurred. Plan discussed with: Patient, Other Date of Service: Apr 11, 2025 Billing Provider: JODI NASH Cardiology Common Codes: [id number] [facility] JODI NASH Apr 11, 2025 17:11
[2025-04-12] VITALS (7 sets, daily range): BP systolic 106–140; BP diastolic 74–102; PULSE 91–101; RESP 18–19; TEMP 97.2–97.9; O2SAT 92–96
[2025-04-12] MEDS: FUROSEMIDE 20 MG TAB PO SCH (06:03)
[2025-04-12 11:07] LABS: Prostate Specific Antigen 1.9 ng/mL (0.0-4.0)
--- NOTE | 2025-04-12 13:01 | DVHPN2 ---
Consult Progress Note Date Seen: Apr 12, 2025 Subjective Review of Systems: CVS:Normal, RESPIRATORY:Abnormal, NEURO:Normal Other Systems: C/o SOB, improving Objective vital signs Vital Sign Date Time Temp Pulse Resp B/P (MAP) Pulse Ox O2 Delivery O2 Flow Rate FiO2 04/12/25 08:30 97.7 101 18 140/90 (107) 92 97.7 04/12/25 08:15 Room Air* 0 21 Total Intake and Output 04/11/25 04/11/25 04/12/25 15:00 23:00 07:00 Intake Total 50 ml 737.26 ml 450 ml Output Total 2475 ml 1500 ml Balance 50 ml -1737.74 ml -1050 ml medications Current Medications Medications Dose Ordered Sig/Aayush Route Start Time Stop Time Status Last Admin Dose Admin Ceftriaxone Sodium 50 ml @ 100 mls/hr DAILY@09 IV 04/08/25 09:00 04/12/25 09:17 100 MLS/HR Apixaban 5 mg BID PO 04/07/25 22:00 04/12/25 10:06 5 MG Empaglifozin 10 mg DAILY PO 04/08/25 10:00 04/12/25 10:06 10 MG Acetaminophen 650 mg Q6HP PRN PO 04/07/25 19:30 Doxycycline Monohydrate 100 mg Q12HR PO 04/08/25 22:00 04/12/25 10:06 100 MG Amiodarone HCl 200 mg Q12HR PO 04/09/25 22:00 04/12/25 10:05 200 MG Spironolactone 12.5 mg DAILY PO 04/11/25 10:00 04/12/25 10:06 12.5 MG Furosemide 60 mg BIDD PO 04/12/25 06:00 04/12/25 06:03 60 MG Examination: GENERAL:Abnormal (Chronically ill), LUNGS:Abnormal (+bilateral crackles), CVS:Normal, MSK:Abnormal (+pitting lower extremity edema, irmproved), NEURO:Normal laboratory and microbiology Laboratory Tests 04/11/25 07:23 04/10/25 21:02 Test 04/11/25 07:23 Range/Units Serum Glucose 99 74-106 mg/dL Problem List/Assessment/Plan Problem List/Assessment/Plan Acute on chronic decompensated HFrEF, NYHA Class IV Non-ischemic/biventricular cardiomyopathy Nonsustained ventricular tachycardia Severe pulmonary hypertension Aortic valve insufficiency, moderate to severe Tricuspid valve regurgitation, severe degree Suspected malignancy with metastatic disease On Eliquis therapy for unknown diagnoses Hypertension EDVIN on CKD Nicotine dependence Morbid obesity Plan/Recommendation (Dr. Zimmer) * Transthoracic echocardiogram from 12/31/2024 reveals EF of 10-15% with severe global hypokinesis, RVSP 60 mmHg * Initiate guideline directed medical therapy for CHF and monitor renal function/BP closely * Avoid inotropic support given frequent nonsustained V-tach events * Preload reduction, continue Lasix p.o. * Strict intake and output, daily weights, maintain fluid restriction, insert white catheter * Antiarrhythmic therapy, amiodarone BID * DOAC therapy with Eliquis (Rx as outpatient for unknown diagnosis) * Continuous telemetry monitoring Patient is to continue GDMT for HFrEF for three continuos months. He is a potential candidate for an ICD with no improvement on LV function and ruled out malignancy. Continue conservative management at this time. In the meantime, initiate LifeVest. Thank you for allowing us to care for this patient. Please call with any questions or concerns. This medical document was created using an electronic medical record system with voice recognition software and computerized dictation system. Although this document has been carefully reviewed, there might still be some phonetic and typographical errors. Occasional wrong-word or ``sound-alike substitutions may have occurred due to the inherent limitations of voice recognition software. These areas are purely typographical due to imperfections of the software programs and do not reflect any compromise in the patient's medical care. Please read the chart carefully and recognize, using context, where these substitutions have occurred. Plan discussed with: Patient, Other Date of Service: Apr 12, 2025 Billing Provider: JODI NASH Cardiology Common Codes: [id number] HOSP CARE(High JODI NASHP Apr 12, 2025 13:01
[2025-04-12] MEDS: CARVEDILOL 3.125 MG TAB PO ONE (13:36)
--- NOTE | 2025-04-12 13:49 | DVH ---
CHEST RADIOGRAPH Indication: CHF Technique: Single frontal view of the chest was obtained Comparison: XY CHEST PORTABLE on DOS: 04/08/25, XY CHEST PORTABLE on DOS: 04/07/25, XY CHEST PORTABLE on DOS: 03/14/25 FINDINGS: Lines and Tubes: None Lungs: Worsening bibasilar airspace disease. Pleura: No effusion. No pneumothorax. Cardiomediastinal contours: Unremarkable Bones: No acute osseous abnormality. IMPRESSION: 1. Stable cardiac size. 2. Worsening bibasilar airspace disease findings may represent worsening congestive failure or pneumo oskar. Correlate clinically. HS:Y
[2025-04-12] MEDS ORDERED: AMIO200T33 PO (15:37)
[2025-04-12] MEDS ORDERED: SACU1CAP2 PO (15:51)
--- NOTE | 2025-04-12 16:59 | DVHDSRES ---
Discharge Summary Date of Admission Resident Creating Document: SUZANNE BALDWIN RESIDENT Apr 07, 2025 at 19:21 Date of Discharge: Apr 12, 2025 Labs/Diagnostic Data: Laboratory Results Test 04/11/25 07:23 04/10/25 21:02 04/09/25 05:00 04/08/25 20:49 Sodium Level 145 mmol/L (136-145) Potassium Level 3.9 mmol/L (3.5-5.1) Chloride Level 109 mmol/L (98-107) Carbon Dioxide Level 26 mmol/L (20-31) Anion Gap 10 (5-15) Blood Urea Nitrogen 31 mg/dL (9-23) Creatinine 1.44 mg/dL (0.700-1.30) Glomerular Filtration Rate Calc 55 mL/min (>90) BUN/Creatinine Ratio 21.5 (10.0-20.0) Serum Glucose 99 mg/dL (74-106) Lactic Acid Level 1.2 mmol/L (0.4-2.0) Calcium Level 8.6 mg/dL (8.7-10.4) White Blood Count 10.2 10^3/uL (4.4-10.8) Red Blood Count 5.82 10^6/uL (4.5-5.90) Hemoglobin 15.5 g/dL (13.5-17.5) Hematocrit 47.8 % (41.0-53.0) Mean Corpuscular Volume 82.1 fL (80.0-100.0) Mean Corpuscular Hemoglobin 26.6 pg (28.0-32.0) Mean Corpuscular Hemoglobin Concent 32.4 g/dL (32.0-36.0) Red Cell Distribution Width 18.6 % (11.8-14.3) Platelet Count 219 10^3/uL (140-450) Mean Platelet Volume 8.8 fL (6.9-10.8) Neutrophils (%) (Auto) 77.8 % (37.0-80.0) Lymphocytes (%) (Auto) 9.8 % (10.0-50.0) Monocytes (%) (Auto) 11.5 % (0.0-12.0) Eosinophils (%) (Auto) 0.7 % (0.0-7.0) Basophils (%) (Auto) 0.2 % (0.0-2.0) Neutrophils # (Auto) 8.0 10 ^3/uL (1.6-8.6) Lymphocytes # (Auto) 1.0 10 ^3/uL (0.4-5.4) Monocytes # (Auto) 1.2 10 ^3/uL (0-1.3) Eosinophils # (Auto) 0.1 10 ^3/uL (0-0.8) Basophils # (Auto) 0 10 ^3/uL (0-0.2) Nucleated Red Blood Cells 0.1 % Total Bilirubin 1.5 mg/dL (0.2-1.0) Aspartate Amino Transferase (AST) 41 U/L (13-40) Alanine Aminotransferase (ALT) 30 U/L (7-40) Alkaline Phosphatase 120 U/L (46-116) Total Protein 6.8 g/dL (5.7-8.2) Albumin 3.6 g/dL (3.2-4.8) CA 19-9 Antigen 73 U/mL (0-35) CA 125 Antigen 121.0 U/mL (Not Estab.) Free Prostate Specific Antigen 0.51 ng/mL (N/A) Percent Free Prostate Specific Ag 26.8 % (.) Prostate Specific Antigen Total 1.9 ng/mL (0.0-4.0) Influenza Type A Antigen Negative (Negative) Influenza Type B Antigen Negative (Negative) SARS-CoV-2 Antigen (Rapid) Negative (NEGATIVE) Erythrocyte Sedimentation Rate 4 mm/hr (0-20) Test 04/08/25 19:50 04/08/25 04:59 04/07/25 21:10 04/07/25 13:46 Troponin I High Sensitivity 31 ng/L (</=54) C-Reactive Protein High Sensitivity 13.08 mg/dL (<1.0) Magnesium Level 2.9 mg/dL (1.6-2.6) POC Glucose 144 mg/dl (70-106) B-Type Natriuretic Peptide 4522.26 pg/mL (0-100) Other Laboratory Tests 04/11/25 07:23 04/10/25 21:02 Brief Hx & Hospital Course: Brief history: Cr Peterson is a 60-year-old male with past medical history of HFrEF, HTN, PE, presented to the ER with chief complain of bilateral lower limb swelling, which has lasted for 4 months, has been on and off, worsening since yesterday. He reports being short of breaths when he is talking. Poor historian; He seems confused about the history, further history is obtained by the sister after his consent. The sister reported difficulty breathing, orthopnea urged his visit to ER. She also reported hospitalization last week for similar episode. 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 The sister reported he does not follow with a repair table operator. She also reported history of a papular wound in the abdominal flap which had a purulent discharge. His at home medications: Eliquis, Jardiance, spironolactone, doxycycline, carvedilol, torsemide, Pepcid, irbesartan hydrochlorothiazide, nifedipine. Hospital course: Patient was admitted along the line of sepsis due to pneumonia. His initial vitals showed tachycardia, tachypnea. His labs show elevated leukocyte, lactic acidosis, elevated BNP. CT revealed left-sided pleural effusions, associated atelectasis with bibasilar ground-glass and solid opacities. He was started on IV ceftriaxone and doxycycline. He was also managed with IV Lasix for acute on chronic decompensated heart failure. Strict intake and output, daily weights, maintain fluid restriction, insert white catheter. Cardiology was on board. Antiarrhythmic therapy with amiodarone for nonsustained tachycardia. He was monitored on telemetry. Home medications continued. A CT contrast abdomen done during the stay revealed 2.1 x 2.1 cm soft tissue density lesion abutting the pancreatic tail which may represent a pancreatic tail lesion versus intrapancreatic accessory spleen. MRI with and without contrast is recommended for further evaluation. 1.1 cm right pelvic sidewall lymph node with 1.5 cm in short axis retroperitoneal lymph node at the level of the inferior pole of the left kidney which may be reactive/neoplastic; Bilateral adrenal lesions which measures as adenomas on the noncontrast CT abdomen and pelvis of 12/31/2024 relatively unchanged in size. Findings discussed with patient. He will continue follow-up with PCP for further management. His vitals have stabilized and lactic acid levels have normalized. He is stable for discharge. According to his wishes, discharge plan shared with the sister. Discharge diagnosis: Sepsis due to pneumonia, Gram-negative Gram-positive, possible Neutrophilic leukocytosis Tachycardia, tachypnea Acute on chronic decompensated HFrEF, NYHA Class IV, with ejection fraction of 10-15% Severe pulmonary hypertension Non-ischemic/biventricular cardiomyopathy Cardiogenic shock stage B, C, possible Lactic acidosis Nonsustained V-tach Hyperkalemia, resolved History of Chronic kidney disease History of pulmonary embolism History of essential hypertension Possible pancreatic malignancy Bilateral adrenal adenomas, CT finding Bilateral renal cysts, CT finding Cholelithiasis, CT finding Small umbilical hernia, CT finding Aortic valve insufficiency, moderate to severe Tricuspid valve regurgitation, severe degree On Eliquis therapy for unknown diagnoses EDVIN on CKD Nicotine dependence Morbid obesity Discharge plan: Please discontinue a a Ibersartan-hydrochlorothiazide, nifedipine Please continue Entresto 1 capsule twice daily Please start amiodarone 200 mg tablet twice daily Please continue home medications Please follow-up in discharge clinic in 1 week Please follow-up with PCP in 1 week Please follow-up with cardiology outpatient Condition at Discharge: Stable Final Diagnosis/Problems List Sepsis due to pneumonia, Gram-negative Gram-positive, possible Neutrophilic leukocytosis Tachycardia, tachypnea Acute on chronic decompensated HFrEF, NYHA Class IV, with ejection fraction of 10-15% Severe pulmonary hypertension Non-ischemic/biventricular cardiomyopathy Cardiogenic shock stage B, C, possible Lactic acidosis Nonsustained V-tach Hyperkalemia, resolved History of Chronic kidney disease History of pulmonary embolism History of essential hypertension Possible pancreatic malignancy Bilateral adrenal adenomas, CT finding Bilateral renal cysts, CT finding Cholelithiasis, CT finding Small umbilical hernia, CT finding Aortic valve insufficiency, moderate to severe Tricuspid valve regurgitation, severe degree On Eliquis therapy for unknown diagnoses EDVIN on CKD Nicotine dependence Morbid obesity Discharge Disposition: Home Discharge Instruct/Medications Diet: Cardiac 2g Na,low cholest, Renal Activity: No Restrictions, As Tolerated Follow Up/Referral: Please follow-up in discharge clinic in 1 week Please follow-up with PCP in 1 week Please follow-up with cardiology outpatient Medications: Please discontinue a a Ibersartan-hydrochlorothiazide, nifedipine Please continue Entresto 1 capsule twice daily Please start amiodarone 200 mg tablet twice daily Please continue home medications Scheduled Amiodarone Hcl (Amiodarone Hcl), 200 MG PO BID Apixaban Base (Eliquis), 1 TAB PO BID, (Reported) Carvedilol (Coreg), 12.5 MG PO BID Empagliflozin (Jardiance), 1 TAB PO DAILY Famotidine (Pepcid Tablet), 1 TAB PO DAILY, (Reported) Furosemide (Furosemide), 40 MG PO BID Sacubitril-Valsartan (Entresto 15-16 mg), 1 CAP PO BID Spironolactone (Spironolactone), 0.5 TAB PO DAILY Discontinued Medications Irbesartan-Hydrochlorothiazide (Irbesartan/Hydrochlorothi 150-12.5 mg), 1 TAB PO DAILY, (Reported) Nifedipine (Nifedipine Er), 1 TAB PO DAILY, (Reported) Discharge Statement: "Patient was advised to return to the ER or call 911 if any headaches, dizziness, shortness of breath, chest pain, abdominal pain, bleeding, fevers, or worsening of medical condition. Patient was counseled about treatment plan, medications, possible side effects, patientverbalized understanding. All questions were answered to the best of my ability. This discharge took greater then 30 minutes in planning, reviewing documentation, counseling the patient, and discussing with other team members." ASSESSMENT ASSESSMENT Assessment Sepsis due to pneumonia, Gram-negative, Gram-positive, possible Acute on chronic decompensated HFrEF Date of Service: Apr 12, 2025 Billing Provider: CAROLINA GUZMAN MD Common Visit Codes: 38716-UQG/OBS DISCH DAY >30min SUZANNE BALDWIN RESIDENT Apr 12, 2025 16:59 CAROLINA GUZMAN MD Apr 14, 2025 21:15
[2025-04-12] MEDS ORDERED: CARVEDILOL 3.125 MG TAB PO SCH (22:00)
[2025-04-12] MEDS ORDERED: SACUBITRIL-VALSARTAN 24mg/26mg TAB PO SCH (22:00)
--- NOTE | 2025-04-13 11:40 | ECG ---
[facility] Test Date: 2025-04-08 Test Time: 16:19:52 Pat Name: CHRIS DUPONT Department: Room: 0247T B Gender: M Telephone Supervisor: LIN ERWIN RN : 1965 Requested By: SUZANNE BALDWIN Order Number: [id number] Reading MD: Radames Zimmer Measurements Intervals [place] Rate: 97 P: 0 LA: 0 QRS: 115 QRSD: 167 T: -55 QT: 432 QTc: 549 Interpretive Statements Atrial fibrillation Right bundle branch block Repol abnrm suggests ischemia, diffuse leads Electronically Signed On 04-14-2025 18:31:40 PDT by Radames Zimmer Please click the below link to view image of tracing.
--- NOTE | 2025-04-13 11:41 | ECG ---
[facility] Test Date: 2025-04-08 Test Time: 16:20:51 Pat Name: CHRIS DUPONT Department: Room: 0247T B Gender: M Direct Response Consultant: LIN ERWIN RN : 1965 Requested By: SUZANNE BALDWIN Order Number: [id number] Reading MD: Radames Zimmer Measurements Intervals [place] Rate: 102 P: 0 [place]: 0 QRS: 114 QRSD: 166 T: -59 QT: 450 QTc: 587 Interpretive Statements sinus tachycardia with premature aberrantly conducted beats Right bundle branch block nonspecific ST segment changes in the lateral leads Electronically Signed On 04-14-2025 18:33:15 PDT by Radames Zimmer Please click the below link to view image of tracing.
== END 2025-04-12 20:12 | disposition home or self-care (01) | DRG 720 ==
LOC: ER 11:52 → EDBD 11:52 → OVERFLOW 19:21 → TELE-WESTW 22:00 → TELE-EAST 04-10 01:09
PROVIDERS: ADMIT Student in an Organized Health Care Education/Training Program; ATTEND Student in an Organized Health Care Education/Training Program
DX: A41.50 Gram-negative sepsis, unspecified (principal); R57.0 Cardiogenic shock; I50.23 Acute on chronic systolic (congestive) heart failure; J15.69 Pneumonia due to other Gram-negative bacteria; E87.20 Acidosis, unspecified; C25.9 Malignant neoplasm of pancreas, unspecified; I27.20 Pulmonary hypertension, unspecified; I47.20 Ventricular tachycardia, unspecified; J15.9 Unspecified bacterial pneumonia; Z20.822 Contact with and (suspected) exposure to COVID-19; Z68.38 Body mass index [BMI] 38.0-38.9, adult; I13.0 Hypertensive heart and chronic kidney disease with heart failure and stage 1 through stage 4 chronic kidney disease, or unspecified chronic kidney disease; N17.9 Acute kidney failure, unspecified; E11.22 Type 2 diabetes mellitus with diabetic chronic kidney disease; E87.5 Hyperkalemia; N18.9 Chronic kidney disease, unspecified; E66.01 Morbid (severe) obesity due to excess calories; I07.1 Rheumatic tricuspid insufficiency; F17.210 Nicotine dependence, cigarettes, uncomplicated; I35.1 Nonrheumatic aortic (valve) insufficiency; N40.0 Benign prostatic hyperplasia without lower urinary tract symptoms; D35.02 Benign neoplasm of left adrenal gland; D35.01 Benign neoplasm of right adrenal gland; K42.9 Umbilical hernia without obstruction or gangrene; K80.20 Calculus of gallbladder without cholecystitis without obstruction; Z79.01 Long term (current) use of anticoagulants; Z79.899 Other long term (current) drug therapy
CPT/HCPCS: 36415; 71045; 74177; 76700; 80048; 80053; 82962; 83605; 83735; 83880; 84132; 84154; 84484; 85025; 85652; 86141; 86301; 86304; 87040; 87081; 87426; 87804; 93005; 94640; 96365; 99291; 99292; G0378; J1815